=== PATIENT | female | born 1955 | race Caucasian/White ===

== ENCOUNTER → 2020-05-21 14:56 | Outpatient (CLI) | payer OTHER, SELFPAY ==
--- NOTE | ~2020-05-21 | CT_ITS ---
EXAMINATION: CT abdomen pelvis w con DATE: 05/21/2020 15:29 INDICATION: Periumbilical abdominal pain. Abnormal weight loss. TECHNIQUE: Computed tomography (CT) of the abdomen and pelvis was performed with 100 mL Omnipaque 350 intravenous contrast. Automated exposure control and iterative reconstruction technique were employe d. The dose-length product was 229.12 mGy-cm. COMPARISON: CT abdomen 11/17/2019 FINDINGS: The visualized portions of the lung bases demonstrate severe emphysema. There is mild atele ctasis bilaterally. No pleural effusion. The liver demonstrates focal steatosis adjacent to ligamentu m teres. The gallbladder, spleen, pancreas, and adrenal glands are normal. There is cortical thinning of the kidneys. There is a 5 mm cyst in left kidney. There are no dilated loops of bowel. There are no pathologically enlarged lymph nodes. There is no free intraperitoneal fluid. There is a chronic le ft L5 pars defects. There is chronic sclerosis in right L5 pars interarticularis, consistent with str ess reaction. There is thoracolumbar levoscoliosis and mild spondylosis. IMPRESSION: 1. No etiology for the patient's symptoms. 2. Severe emphysema. Reviewed, dictated and finalized at location A.
[2020-05-21 15:17] LABS: Estimated Glomerular Filt Rate 56
== END ==
PROVIDERS: PCP Family Medicine Adolescent Medicine; Visit Provider Family Medicine Adolescent Medicine
DX: R10.33 Periumbilical pain (principal); R63.4 Abnormal weight loss; J43.9 Emphysema, unspecified
CPT/HCPCS: 36415; 74177; Q9967

== ENCOUNTER 2020-07-04 15:10 | Outpatient (CLI) | payer OTHER, SELFPAY ==
--- NOTE | ~2020-07-04 | MM_ITS ---
EXAMINATION: MM screening samson BI w val HISTORY: Baseline screening mammogram TECHNIQUE: Craniocaudal and mediolateral oblique 3-D tomosynthesis images were obtained and synthetic 2-D images were generated. CAD analysis was submitted and interpreted. COMPARISON: None, baseline BREAST PARENCHYMAL COMPOSITION: The breasts are heterogeneously dense, which may obscure small masses . FINDINGS: Scattered benign-appearing calcifications are present. There is no evidence of suspicious m ass, calcification, or architectural distortion to suggest malignancy in either breast. IMPRESSION: 1. No mammographic evidence of malignancy. 2. Recommend routine screening mammography in one year. BI-RADS Category 2: Benign finding(s). Reviewed, dictated and finalized at location A.
== END 2020-07-04 15:11 | disposition home or self-care (01) ==
PROVIDERS: PCP Family Medicine Adolescent Medicine; Visit Provider Family Medicine Adolescent Medicine
DX: Z12.31 Encounter for screening mammogram for malignant neoplasm of breast (principal)
CPT/HCPCS: 77063; 77067

== ENCOUNTER 2021-03-26 13:49 | Inpatient (IN) | payer OTHER, SELFPAY ==
[2021-03-26] VITALS (21 sets, daily range): BP systolic 122–157; BP diastolic 66–96; PULSE 63–105; RESP 14–28; TEMP 36.3–37.2; O2SAT 88–100; BMI 17.3
--- NOTE | ~2021-03-26 | XR_ITS ---
EXAMINATION: XR chest 1V portable DATE: 03/30/2021 08:51 INDICATION: Dyspnea TECHNIQUE: frontal view of the chest was obtained. COMPARISON: Chest radiograph dated 09/13/2018 FINDINGS: Hyperexpansion of lungs with increased lucency, architectural distortion and flattening of the diaphr agm consistent with emphysema. New mild reticular opacities in the right lower lung zone which could represent atelectasis, pneumonia or mild pulmonary edema. No pneumothorax or definitive pleural effus ion. The cardiomediastinal silhouette is normal. Moderate degenerative skeletal changes in the spine and right shoulder. IMPRESSION: 1. Mild reticular opacities in the right lower lung zone which could represent atelectasis, pneumonia or mild pulmonary edema superimposed over emphysema. Reviewed, dictated and finalized at location A.
--- NOTE | ~2021-03-26 | XR_ITS ---
EXAMINATION: XR chest 1V EXAM DATE: 03/26/2021 14:59 INDICATION: Shortness of breath. TECHNIQUE: Portable AP frontal chest x-ray was obtained. Comparison is made to prior examination from 09/13/18. FINDINGS: There is progression in right lung and left upper lobe abnormal reticulation, relative spar ing of the left mid and lower lung zones. Could be pulmonary edema superimposed on known severe emph ysema as seen on prior CT scan. Clinical correlation. Cardiomediastinal silhouette is normal. No con fluent consolidation or pneumothorax. There are bony degenerative changes. Study is limited due to pa tient motion. IMPRESSION: Progression of abnormal reticulation, could indicate acute edema superimposed on chronic severe emphysema but please clinically correlate. Reviewed, dictated and finalized at location A. IMPRESSION: Progression of abnormal reticulation, could indicate acute edema troncoso perimposed on chronic severe emphysema but please clinically correlate.
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
--- NOTE | 2021-03-26 13:54 | ECG_ITS ---
Measurements Intervals [place] Rate: 103 P: 95 MI: 94 QRS: 90 QRSD: 91 T: 72 QT: 328 QTc: 430 Interpretive Statements SINUS TACHYCARDIA WITH SHORT MI INTERVAL POSSIBLE LEFT ATRIAL ENLARGEMENT RIGHT ATRIAL ENLARGEMENT BASELINE ARTIFACT- V1, V3 ABNORMAL ECG Electronically Signed On 03-26-2021 14:11:51 CDT by Nick Appiah D.O.
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
[2021-03-26 14:13] LABS: Glucose Point of Care 113 (65-105)
[2021-03-26] MEDS: SODIUM CHLORIDE 0.9% IV 1,000 ML 999 ML IV CONT ×2 (14:14)
[2021-03-26 14:27] LABS: Add Urine Microscopic? YES; Appearance Urine Cloudy (Clear); Bacteria Urine Trace /hpf; Bilirubin Urine Negative (Negative); Blood Urine Negative (Negative); Color Urine Amber (Yellow); Glucose Urine UA Negative (Negative); Ketones Urine Negative (Negative); Leukocyte Esterase Ur 1+ LEU/UL (Negative); Mucus Urine Rare /lpf; Nitrate Urine Negative (Negative); Protein Urine 2+ mg/dL (Negative); Renal Epithelial Cells Urine Rare /hpf (None Seen); Specific Grav Ur 1.019 (1.001-1.035); Squamous Epithelial Cell Urine Many /hpf (Few); WBC Urine 16-20 /hpf
[2021-03-26 14:29] LABS: Basophils Percent Auto 0.2 % (0.2-1.2); Eosinophils Percent Auto 0.1 % (0-4.4); Hematocrit 48.4 % (37.0-47.0); Hemoglobin 14.9 g/dL (12.0-15.0); Immature Granulocyte Absolute 0.05 K/mm3 (0.00-0.031); Immature Granulocyte Percent A 0.4 % (0-0.5); Lymphocytes Absolute Auto 0.72 K/mm3 (0.9-3.2); Lymphocytes Percent Auto 5.7 % (18.3-44.2); Mean Corpuscular HGB Conc 30.8 g/dl (32-36); Mean Corpuscular Hemoglobin 30.5 pg (26-34); Mean Platelet Volume 9.5 fl (7.4-10.4); Monocytes Percent Auto 8.1 % (2.6-8.5); Neutrophils Absolute Auto 10.7 K/mm3 (1.3-6.7); Neutrophils Percent Auto 85.5 % (45.5-73.1); Platelet Count Result 211 k/mm3 (150-375); Red Blood Count 4.89 M/mm3 (4.2-5.4); Red Cell Distribution Width 13.2 % (11.5-14.5); White Blood Count 12.5 K/mm3 (4.5-10.0)
[2021-03-26 14:31] LABS: INR 0.9; Prothrombin Time 12.5 Seconds (11.1-14.7)
[2021-03-26 14:32] LABS: Partial Thromboplastin Time 28.6 SECONDS (22.3-36.8)
[2021-03-26 14:33] LABS: Alanine Aminotransferase 14 U/L (4-35); Alkaline Phosphatase 64 U/L (38-126); Aspartate Amino Transferase 26 U/L (14-36); Bilirubin,Total 1.1 mg/dL (0.2-1.3); Blood Urea Nitrogen 16 mg/dL (7-17); Calcium 9.9 mg/dL (8.4-10.2); Carbon Dioxide > 40 mmol/L (22-30); Chloride 98 mmol/L (98-107); Estimated CRCL calculation 48 ml/min; Estimated Glomerular Filt Rate > 60; Glucose 120 mg/dL (65-105); Potassium 4.4 mmol/L (3.4-5.0); Sodium 141 mmol/L (137-145)
[2021-03-26 14:33] LABS: Alveolar/Arterial O2 Gradient 60.3 mmHg; Base Excess ABG 0.9 mEq/l (+/-2.0); Carboxyhemoglobin 4.7 % THb (0-2.0); Fractional Inspired Oxygen 32 %; HCO3 ABG 30.5 mEq/l (22.0-26.0); Methemoglobin ABG 0.3 %THb (0-1.5); Oxygen Content ABG 17.7 %vol (16.0-22.0); Oxygen Saturation ABG 93.7 % (95.0-100.0); Oxyhemoglobin 89.2 % THb (90.0-100.0); PO2 FiO2 Ratio Arterial Blood 2.56 %; Reduced Hemoglobin 5.8 %THb (0-5.0); Total Hemoglobin 14.1 g/dL (12.0-18.0)
[2021-03-26 14:35] LABS: Ammonia < 9 umol/L (9-30); Ethanol < 10 mg/dL (<10); Lactic Acid Reflex 1.4 mmol/L (0.7-2.1)
[2021-03-26 14:35] LABS: Device NASAL CANNULA; Modified Allen's Test Unable to perform; PCO2 ABG 73.4 mmHg (35.0-45.0); Site Drawn RIGHT RADIAL; pH ABG 7.236 (7.350-7.450)
[2021-03-26 14:44] LABS: Troponin I < 0.012 ng/mL (0.000-0.034)
[2021-03-26 14:45] LABS: Amphetamine Screen Urine Negative (Negative); Barbiturate Screen Urine Negative (Negative); Benzodiazepines Screen Urine Negative (Negative); Cannabinoid Screen Urine Negative (Negative); Cocaine Screen Urine Negative (Negative); Methadone Screen Urine Negative (Negative); Opiate Screen Urine Positive (Negative); Phencyclidine Screen Urine Negative (Negative)
[2021-03-26] MEDS: ALBUTEROL SULFATE NEB 2.5 MG/0.5 ML INH 5 MG INHALATION (15:07)
--- NOTE | 2021-03-26 15:11 | PC.NURSE ---
Patient's neuro status improving, able to tell RN and EDP her name, date of and that she is at [facility]. Patient's friend at bedside at this time.
[2021-03-26 15:37] LABS: CRP 5.1 mg/dL (<1.0)
[2021-03-26] MEDS: methylPREDNISolone SOD SUCC 125 MG VIAL IV PUSH (16:36)
[2021-03-26 16:39] LABS: Base Excess ABG 3.6 mEq/l (+/-2.0); Carboxyhemoglobin 4.2 % THb (0-2.0); Fractional Inspired Oxygen 35 %; HCO3 ABG 34.1 mEq/l (22.0-26.0); Methemoglobin ABG 0.3 %THb (0-1.5); Oxygen Content ABG 18.2 %vol (16.0-22.0); Oxyhemoglobin 87.3 % THb (90.0-100.0); PO2 ABG 72.8 mmHg (80.0-100.0); PO2 FiO2 Ratio Arterial Blood 2.08 %; Reduced Hemoglobin 8.2 %THb (0-5.0); Total Hemoglobin 14.8 g/dL (12.0-18.0)
[2021-03-26 16:40] LABS: Device NON-INVASIVE VENT; Modified Allen's Test Pass; Non-Invasive Expiratory Pressure 5 CMH2O; Non-Invasive Inspiratory Pressure 13 CMH2O; Non-Invasive Vent Rate 10 /MIN; PCO2 ABG 82.4 mmHg (35.0-45.0); Site Drawn LEFT RADIAL; pH ABG 7.235 (7.350-7.450)
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
--- NOTE | 2021-03-26 19:43 | ADMGEN ---
This patient, Kena Guevara, was admitted to IMU Room 201-01. Patient/family oriented to hospital policies and general routines including ID bracelet, bed and alarms, visiting hours, pain management, procedures, bathroom and other care routines, personal items, smoking policy, room service/diet, and visiting hours. Information on how to activate the Rapid Response Team has been discussed. Patient/Family are encouraged to report perceived risks to care and to ask questions if they do not understand what they are told or what they should do.
[2021-03-26 22:03] LABS: Alveolar/Arterial O2 Gradient 85.9 mmHg; Base Excess ABG 2.4 mEq/l (+/-2.0); Carboxyhemoglobin 3.2 % THb (0-2.0); Fractional Inspired Oxygen 35 %; HCO3 ABG 32.6 mEq/l (22.0-26.0); Methemoglobin ABG 0.3 %THb (0-1.5); Oxygen Content ABG 18.5 %vol (16.0-22.0); Oxygen Saturation ABG 91.1 % (95.0-100.0); Oxyhemoglobin 88.8 % THb (90.0-100.0); PO2 ABG 72.6 mmHg (80.0-100.0); PO2 FiO2 Ratio Arterial Blood 2.07 %; Reduced Hemoglobin 7.7 %THb (0-5.0); Total Hemoglobin 14.8 g/dL (12.0-18.0)
[2021-03-26 22:05] LABS: pH ABG 7.237 (7.350-7.450)
[2021-03-26 22:06] LABS: Device NON-INVASIVE VENT; Modified Allen's Test Pass; Non-Invasive Expiratory Pressure 5 CMH2O; Non-Invasive Inspiratory Pressure 15 CMH2O; Non-Invasive Vent Rate 18 /MIN; PCO2 ABG 78.3 mmHg (35.0-45.0); Site Drawn RIGHT RADIAL
[2021-03-26] MEDS: atenoloL 25 MG TABLET PO (22:28)
[2021-03-27] VITALS (32 sets, daily range): BP systolic 109–139; BP diastolic 65–84; PULSE 75–87; RESP 16–36; TEMP 35.8–36.6; O2SAT 93–98; BMI 17.3
[2021-03-27] MEDS: methylPREDNISolone SOD SUCC 40 MG VIAL IV PUSH ×5 (00:03→23:39)
[2021-03-27] MEDS: LORazepam (*CRX) 1 MG TABLET PO ×2 (00:07→20:39)
[2021-03-27 00:08] LABS: Alveolar/Arterial O2 Gradient 70.3 mmHg; Fractional Inspired Oxygen 35 %; HCO3 ABG 38.8 mEq/l (22.0-26.0); Oxygen Content ABG 19.2 %vol (16.0-22.0); Oxyhemoglobin 91.3 % THb (90.0-100.0); PO2 FiO2 Ratio Arterial Blood 2.23 %; Total Hemoglobin 14.9 g/dL (12.0-18.0)
[2021-03-27 00:09] LABS: pH ABG 7.267 (7.350-7.450)
[2021-03-27 00:10] LABS: Device BIPAP; Expiratory Pressure 6 cmH2O; Inspiratory Pressure 18 cmH2O; Modified Allen's Test Pass; PCO2 ABG 87.1 mmHg (35.0-45.0); Site Drawn RIGHT RADIAL
--- NOTE | 2021-03-27 00:27 | PM.EVENT ---
Event Note Event Note Event Note: The patient still has critical ABGs despite BiPAP changes. She is fully alert and oriented at this time and is no respiratory distress thus there is no current indication for intubation. Given her ongoing issues, I will ask pulmonology to see her in consultation for further recommendations. I will increase her IPAP and rate on the BiPAP and repeat gases in the morning.
[2021-03-27] MEDS: ALBUTEROL SULFATE NEB 2.5 MG/0.5 ML INH 5 MG INHALATION ×2 (01:34→08:00)
[2021-03-27] MEDS: IPRATROPIUM BR 0.02% INH SOLN 0.5 MG/2.5 ML VIAL INHALATION ×4 (01:34→20:00)
[2021-03-27 01:40] LABS: Alveolar/Arterial O2 Gradient 83.4 mmHg; Base Excess ABG 7.5 mEq/l (+/-2.0); Fractional Inspired Oxygen 35 %; HCO3 ABG 37.9 mEq/l (22.0-26.0); Oxygen Content ABG 17.5 %vol (16.0-22.0); Oxygen Saturation ABG 89.1 % (95.0-100.0); Oxyhemoglobin 88.3 % THb (90.0-100.0); PO2 ABG 66.3 mmHg (80.0-100.0); PO2 FiO2 Ratio Arterial Blood 1.89 %; Total Hemoglobin 14.1 g/dL (12.0-18.0)
[2021-03-27 01:42] LABS: Device NON-INVASIVE VENT; Modified Allen's Test Pass; PCO2 ABG 85.9 mmHg (35.0-45.0); Site Drawn RIGHT RADIAL; pH ABG 7.263 (7.350-7.450)
[2021-03-27 01:43] LABS: Non-Invasive Expiratory Pressure 8 CMH2O; Non-Invasive Inspiratory Pressure 20 CMH2O; Non-Invasive Vent Rate 24 /MIN
[2021-03-27 05:34] LABS: Hematocrit 42.3 % (37.0-47.0); Hemoglobin 13.2 g/dL (12.0-15.0); Mean Corpuscular HGB Conc 31.2 g/dl (32-36); Mean Corpuscular Hemoglobin 30.5 pg (26-34); Mean Corpuscular Volume 97.7 fl (80-100); Mean Platelet Volume 9.6 fl (7.4-10.4); Platelet Count Result 183 k/mm3 (150-375); Red Blood Count 4.33 M/mm3 (4.2-5.4); Red Cell Distribution Width 13.1 % (11.5-14.5); White Blood Count 11.1 K/mm3 (4.5-10.0)
[2021-03-27 05:45] LABS: Anion Gap 2 mmol/L (8-16); Blood Urea Nitrogen 24 mg/dL (7-17); Calcium 9.6 mg/dL (8.4-10.2); Carbon Dioxide 35 mmol/L (22-30); Chloride 102 mmol/L (98-107); Estimated CRCL calculation 47 ml/min; Estimated Glomerular Filt Rate > 60; Glucose 146 mg/dL (65-105); Magnesium 1.9 mg/dL (1.6-2.3); Potassium 4.7 mmol/L (3.4-5.0); Sodium 139 mmol/L (137-145)
[2021-03-27 05:54] LABS: Base Excess ABG 3.7 mEq/l (+/-2.0); Fractional Inspired Oxygen 35 %; HCO3 ABG 33.3 mEq/l (22.0-26.0); Oxygen Content ABG 17.9 %vol (16.0-22.0); Oxygen Saturation ABG 90.9 % (95.0-100.0); PO2 ABG 70.3 mmHg (80.0-100.0); PO2 FiO2 Ratio Arterial Blood 2.01 %; Total Hemoglobin 14.1 g/dL (12.0-18.0)
[2021-03-27 05:55] LABS: Device BIPAP; Modified Allen's Test Pass; PCO2 ABG 75.9 mmHg (35.0-45.0); Site Drawn RIGHT RADIAL
[2021-03-27 05:56] LABS: Expiratory Pressure 8 cmH2O; Inspiratory Pressure 20 cmH2O
[2021-03-27 08:49] LABS: NT Pro B Type Natriuretic Pept 1450 pg/mL (5-100)
--- NOTE | 2021-03-27 09:16 | PM.IMPN ---
Progress Note: A&P Assessment and Plan (1) Acute respiratory failure with hypoxia and hypercarbia: Code(s): J96.01 - Acute respiratory failure with hypoxia; J96.02 - Acute respiratory failure with hypercapnia Status: Acute Assessment and Plan: Patient is on BiPAP 28/06 with a rate of 24 -ABG this morning has improved from the prior ABG but is still critical with respiratory acidosis -chest x-ray looks like severe emphysema but also mentions possible edema -BNP is elevated, will give a small dose of Lasix now to see if this improves her respiratory state. Echo ordered -I have spoken with pulmonology who is going to see the patient and will possibly adjust BiPAP settings as well as start antibiotics. She received cefepime, vancomycin and a 1 time dose of doxycycline. She has no fevers at this time. Await pulmonology's recommendations -Continue solumedrol 40mg Q6 for now -Will order sputum cx as the pt has been having a productive cough -okay to take off bipap for sips of water for now (2) COPD with emphysema: Code(s): J43.9 - Emphysema, unspecified Status: Acute Assessment and Plan: As above -pt uses 2-3L of o2 with activity and sleep at home -She takes Stiolto Respimat and PRN albuterol at home -She used to see Dr. Bobby but hasn't followed up in a bit (3) Weight loss: Code(s): R63.4 - Abnormal weight loss Status: Acute Assessment and Plan: Onging since last year -She had a CT of the abd/pelv last year for this with no etiology -likely due to emphysema -follow up with PCP (4) COPD exacerbation: Code(s): J44.1 - Chronic obstructive pulmonary disease with (acute) exacerbation Status: Acute Assessment and Plan: As above -Continue breathing treatments, bipap, and steroids as above (5) Tobacco abuse: Code(s): Z72.0 - Tobacco use Status: Acute Assessment and Plan: Pt understands she needs to quit smoking and has been using Chantix (6) Acute metabolic encephalopathy: Code(s): G93.41 - Metabolic encephalopathy Status: Acute Assessment and Plan: Resolved -likely due to hypoxia with a reported o2 sat of 55% prior to admission -CT of the brain negative for acute pathology -Neuro exam WNL Additional Plan Will do lovenox 40mg for DVT prophylaxis along with 40 mg pantoprazole Time Spent With Patient Time with patient: 25 - 35 minutes Subjective Date/time seen: 03/27/21 09:16 Interval history: Pt is a 65-year-old female here for respiratory failure. Patient was seen today on continuous BiPAP. She has no complaints at this time. She specifically denies chest pain, shortness of breath, nausea, vomiting, fevers, chills or leg swelling. She has no history of heart failure that she knows of. She had a little bit of a cough prior to admission but she says it has resolved. She has been taking her inhalers routinely at home and sees 's office but has not seen them in some time. She usually has 2-3 L of oxygen with activity and at night. She has some chronic epigastric pain without dark stool. She is actually feeling a bit constipated and usually takes MiraLax. She says she usually takes benzodiazepines 3 times a day. Review of Systems Review of Systems: All systems reviewed & are unremarkable except as noted in HPI and below Exam Narrative: Exam Narrative: General: Underweight patient resting in bed in no acute distress on BiPAP HEENT: normocephalic Neck: supple Neuro: Alert and oriented x4. Cranial nerves 2-12 intact. Equal strength the upper lower extremity 5/5. CV:RRR although decreased heart sounds due to emphysema. Telemetry shows a resting heart rate at 83 without arrhythmias. Resp: Significantly decreased breath sounds throughout. No rhonchi. Telemetry shows hypoxia down to ED 3 at night on BiPAP. Current respiratory rate is 24 on BiPAP Abd: Soft, non distended. N
[2021-03-27] MEDS: NICOTINE (*PBKC) 21 MG PATCH 1 PATCH TRANSDERM (10:43)
[2021-03-27] MEDS: VARENICLINE 1 MG TABLET PO ×2 (10:43→18:09)
[2021-03-27] MEDS: atenoloL 25 MG TABLET PO ×2 (10:43→20:39)
[2021-03-27] MEDS: FUROSEMIDE INJ 40 MG/4 ML VIAL 20 MG IV PUSH (10:44)
[2021-03-27] MEDS: PANTOPRAZOLE SODIUM IV 40 MG VIAL IV PUSH (10:44)
[2021-03-27] MEDS: BUDESONIDE RESPULE NEB 0.5 MG/2 ML AMP 1 MG INHALATION ×2 (10:52→20:00)
[2021-03-27] MEDS: ENOXAPARIN 40 MG/0.4 ML SYRINGE SUB-Q (11:35)
--- NOTE | 2021-03-27 12:19 | PCNSR ---
On 03/27/21, the student, Jojo Andrade, provided care and completed [facility] documentation on this patient. I have reviewed the student's documentation and agree with the findings.
--- NOTE | 2021-03-27 12:56 | PM.CNPUL ---
Assessment and Plan Assessment and plan (1) COPD exacerbation: Code(s): J44.1 - Chronic obstructive pulmonary disease with (acute) exacerbation Status: Acute Assessment and Plan: This patient has severe COPD with acute exacerbation and acute on chronic hypercapnic respiratory failure requiring noninvasive ventilation. Her FEV1 was 26% of predicted on her last PFT. Change BiPAP the following settings 24/4 with backup rate of 18 and decreased I time to 0.8 Titrate FiO2 for O2 sats of 88-92% Start ceftriaxone 1 g daily plus azithromycin 500 mg daily for a total of 7 days Continue Solu-Medrol 40 mg IV q.6 hours Change albuterol to 2.5 mg Q 6 hours p.r.n. Start ipratropium 0.5 mg nebulized q.6 hours scheduled Start Pulmicort 1.0 mg nebulized q.6 hours scheduled Regular diet with protein shakes t.i.d.. Nicotine patch 21 mg daily. History of Present Illness History of Present Illness Consult date: 03/27/21 Chief complaint: Hypercarbic respiratory failure Narrative: This is a 65-year-old female with a known history of severe COPD who presents with a few day history of increased cough productive of greenish sputum, increased shortness of breath and chest tightness and wheezing. She denies sore throat fever chills or night sweats. She was admitted yesterday with hypercapnic respiratory failure and COPD exacerbation. She was given 1 dose of broad-spectrum antibiotics and systemic steroids. She was placed on BiPAP 24/8 with some improvement in her CO2 and slower improvement and her PH. She is awake and alert on BiPAP and able to talk in full sentences. She appears very thin in almost cachectic. She has a 40-50 pack-year smoking history and still currently smokes. Chest x-ray showed significant hyperinflation but no signs of interstitial lung disease or pneumonia. Review of Systems Review of Systems: All systems reviewed & are unremarkable except as noted in HPI and below PMFSH Past Medical History Medical History (Updated 03/27/21 @ 09:26 by Faustina Douglass PA-C) COPD with emphysema Depression with anxiety Tobacco abuse Surgical History Surgical History (Updated 03/26/21 @ 20:59 by Mari Blake PA-C) History of orthopedic surgery ORIF right ankle fracture. Right wrist surgery. Right shoulder arthroscopy. Family History Family History Father Diabetes mellitus Sibling Diabetes mellitus Mother Hypertension Social History Social History (Updated 03/26/21 @ 21:01 by Mari Blake PA-C) Social History: The patient lives in her own home in [place] with her cat and dog. She has no children. She has smoked 1 pack of cigarettes per day for the last 50 years or so. 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 She designates her friend Muna Delong as her surrogate decision maker and she wishes to be a full code. Spiritual care concerns: No Meds Home Medications and Allergies Home Medications Medication Instructions Recorded Confirmed Type albuterol sulfate 90 mcg INHALATION QID PRN 03/26/21 03/26/21 History atenolol 25 mg PO BID 03/26/21 03/26/21 History hydrocodone-acetaminophen 1 tablet PO BID PRN 03/26/21 03/26/21 History hyoscyamine sulfate 0.125 mg PO QID PRN 03/26/21 03/26/21 History linaclotide [Linzess] 72 mcg PO DAILY 03/26/21 03/26/21 History lorazepam 1 mg PO TID PRN 03/26/21 03/26/21 History tiotropium-olodaterol [Stiolto 2.5 puff INHALATION BID 03/26/21 03/26/21 History Respimat] varenicline [Chantix Continuing 1 mg PO BID 03/26/21 03/26/21 History Month Box] vilazodone [Viibryd] 40 mg PO DAILY 03/26/21 03/26/21 History Allergies Allergy/AdvReac Type Severity Reaction Status Date / Time moxifloxacin Allergy Mild RASH Verified 09/13/18 21:08 Penicillins Allergy Mild RASH Verified 09/13/18 21:08 Vital Signs Vital Signs - 24 hr
[2021-03-27] MEDS: ALBUTEROL SULFATE NEB 2.5 MG/0.5 ML INH INHALATION (20:01)
--- NOTE | 2021-03-27 21:11 | ECHO_ITS ---
Patient Info Name: Kena Guevara Age: 65 years : 1955 Gender: Female Ht: 66 in Wt: 107 lbs BSA: 1.49 m2 HR: 84 bpm BP: 129 / 75 mmHg Heart Rhythm: Sinus Rhythm Technical Quality: Fair Exam Date: 03/27/2021 9:37 AM Exam Location: [facility] Pulmonary Exam Room: [facility] Patient Status: Inpatient Admit Date: 03/26/2021 Staff Ordering Physician: Mari Blake PA-C Farm Machinery Mechanic: Maria C Hutson RDCS Attending Provider: Lori Scott MD Referring Physician: Lou ARREAGA; Exam Type: CA echo doppler color flow Study Info Indications - SOB EMPHYSEMA Complete two-dimensional, color flow and Doppler transthoracic echocardiogram is performed. Summary 1. Complete two-dimensional, color flow and Doppler transthoracic echocardiogram is performed. 2. Left ventricular chamber dimension is normal. 3. Left ventricular systolic function is normal, estimated at 65-70%. 4. There is no increased left ventricular wall thickness. 5. The left ventricular diastolic function is grade I diastolic dysfunction. 6. There is mild tricuspid valve regurgitation. 7. Moderate pulmonary hypertension, estimated pulmonary arterial systolic pressure is 48 mmHg. Left Ventricle Left ventricular chamber dimension is normal. Left ventricular systolic function is normal, estimated at 65-70%. There is no increased left ventricular wall thickness. The left ventricular diastolic function is grade I diastolic dysfunction. Right Ventricle Right ventricular chamber dimension is normal. Right ventricular systolic function is normal. Left Atria Left atrial chamber dimension is normal. Right Atria Right atrial chamber dimension is normal. Aortic Valve The aortic valve is probable trileaflet. There is no aortic valve stenosis. There is no aortic valve regurgitation. Pulmonic Valve The pulmonic valve is normal. There is trace pulmonic regurgitation. Mitral Valve The mitral valve has normal leaflets. There is trace mitral valve regurgitation. Tricuspid Valve The tricuspid valve leaflets are normal. There is mild tricuspid valve regurgitation. Moderate pulmonary hypertension, estimated pulmonary arterial systolic pressure is 48 mmHg. Pericardium/Pleural The pericardium appears normal. There is trivial pericardial effusion. Inferior Vena Cava Normal inferior vena cava with no collapse upon inspiration consistent with elevated right atrial pressure, 10 mmHg. Aorta The aortic root size at the sinus of Valsalva is normal. Left Ventricular Outflow Tract Name Value Normal LVOT 2D LVOT Diameter 2.0 cm LVOT Doppler LVOT Peak Gradient 4 mmHg LVOT Mean Gradient 2 mmHg LVOT VTI 17 cm LVOT VTI/AV VTI Ratio 0.8 LVOT Stroke Volume 53 ml LVOT CO 12.2 l/min LVOT CI 8.2 l/min/m2 Pulmonic Valve Name
[2021-03-28] VITALS (26 sets, daily range): BP systolic 136–161; BP diastolic 70–82; PULSE 65–103; RESP 18–26; TEMP 36.2–36.6; O2SAT 91–100
[2021-03-28] MEDS: ALBUTEROL SULFATE NEB 2.5 MG/0.5 ML INH INHALATION ×4 (02:04→19:51)
[2021-03-28] MEDS: IPRATROPIUM BR 0.02% INH SOLN 0.5 MG/2.5 ML VIAL INHALATION ×4 (02:05→19:51)
[2021-03-28 05:11] LABS: Hematocrit 40.8 % (37.0-47.0); Hemoglobin 12.7 g/dL (12.0-15.0); Mean Corpuscular HGB Conc 31.1 g/dl (32-36); Mean Corpuscular Hemoglobin 30.4 pg (26-34); Mean Corpuscular Volume 97.6 fl (80-100); Mean Platelet Volume 9.6 fl (7.4-10.4); Platelet Count Result 170 k/mm3 (150-375); Red Blood Count 4.18 M/mm3 (4.2-5.4); Red Cell Distribution Width 13.1 % (11.5-14.5); White Blood Count 11.2 K/mm3 (4.5-10.0)
[2021-03-28 05:37] LABS: Anion Gap 0 mmol/L (8-16); Blood Urea Nitrogen 37 mg/dL (7-17); Calcium 9.3 mg/dL (8.4-10.2); Carbon Dioxide 38 mmol/L (22-30); Chloride 99 mmol/L (98-107); Estimated CRCL calculation 43 ml/min; Estimated Glomerular Filt Rate > 60; Glucose 137 mg/dL (65-105); Potassium 4.6 mmol/L (3.4-5.0); Sodium 137 mmol/L (137-145)
[2021-03-28] MEDS: methylPREDNISolone SOD SUCC 40 MG VIAL IV PUSH ×3 (05:40→17:40)
[2021-03-28] MEDS: BUDESONIDE RESPULE NEB 0.5 MG/2 ML AMP 1 MG INHALATION ×2 (08:10→19:51)
[2021-03-28 09:16] LABS: Alveolar/Arterial O2 Gradient 67.1 mmHg; Base Excess ABG 5.2 mEq/l (+/-2.0); Carboxyhemoglobin 0.2 % THb (0-2.0); Fractional Inspired Oxygen 28 %; HCO3 ABG 31.9 mEq/l (22.0-26.0); Methemoglobin ABG 0.3 %THb (0-1.5); Oxygen Content ABG 18.5 %vol (16.0-22.0); Oxygen Saturation ABG 92.8 % (95.0-100.0); Oxyhemoglobin 91.9 % THb (90.0-100.0); PCO2 ABG 55.1 mmHg (35.0-45.0); PO2 ABG 67.5 mmHg (80.0-100.0); PO2 FiO2 Ratio Arterial Blood 2.41 %; Reduced Hemoglobin 7.6 %THb (0-5.0); Total Hemoglobin 14.3 g/dL (12.0-18.0)
[2021-03-28 09:17] LABS: Modified Allen's Test Pass; Site Drawn LEFT RADIAL
[2021-03-28] MEDS: ENOXAPARIN 40 MG/0.4 ML SYRINGE SUB-Q (09:17)
[2021-03-28] MEDS: atenoloL 25 MG TABLET PO ×2 (09:17→21:29)
[2021-03-28 09:18] LABS: Device NASAL CANNULA
[2021-03-28] MEDS: VARENICLINE 1 MG TABLET PO ×2 (09:18→17:40)
[2021-03-28] MEDS: PANTOPRAZOLE SODIUM IV 40 MG VIAL IV PUSH (09:20)
--- NOTE | 2021-03-28 09:33 | PM.IMPN ---
Progress Note: A&P Assessment and Plan (1) Acute respiratory failure with hypoxia and hypercarbia: Code(s): J96.01 - Acute respiratory failure with hypoxia; J96.02 - Acute respiratory failure with hypercapnia Status: Acute Assessment and Plan: Patient's ABG improved this morning with a normal pH -will remove BiPAP, continue o2, and monitor -Pt currently on 40mg solumedrol Q6 which can probably be decreased but will wait for respiratory's recommendations. -chest x-ray looks like severe emphysema -BNP is elevated, echo showing EF of 65-70% with diastolic grade 1 dysfunction. No additional lasix needed. -sputum cx ordered -Continue ceftriaxone and azithromycin (2) COPD with emphysema: Code(s): J43.9 - Emphysema, unspecified Status: Acute Assessment and Plan: As above -pt uses 2-3L of o2 with activity and sleep at home -She takes Stiolto Respimat and PRN albuterol at home -She used to see Dr. Bobby but hasn't followed up in a bit -Continue pulmcort neb, atrovent schedule and PRN albuterol (3) Weight loss: Code(s): R63.4 - Abnormal weight loss Status: Acute Assessment and Plan: Onging since last year -She had a CT of the abd/pelv last year for this with no etiology -likely due to emphysema -follow up with PCP (4) COPD exacerbation: Code(s): J44.1 - Chronic obstructive pulmonary disease with (acute) exacerbation Status: Acute Assessment and Plan: As above (5) Tobacco abuse: Code(s): Z72.0 - Tobacco use Status: Acute Assessment and Plan: Pt understands she needs to quit smoking and has been using Chantix (6) Acute metabolic encephalopathy: Code(s): G93.41 - Metabolic encephalopathy Status: Acute Assessment and Plan: Resolved -likely due to hypoxia with a reported o2 sat of 55% prior to admission -CT of the brain negative for acute pathology -Neuro exam WNL (7) Bacteria in urine: Code(s): R82.71 - Bacteriuria Status: Acute Assessment and Plan: Likely contaminate due to many squamous cells and urine cx gorwing group b strep -Pt is on ceftriaxone and azithromycin for above which should cover if it was a true infection Additional Plan continue lovenox 40mg for DVT prophylaxis along with 40 mg pantoprazole Time Spent With Patient Time with patient: 25 - 35 minutes Subjective Date/time seen: 03/28/21 09:33 Interval history: Pt is a 65-year-old female here for respiratory failure. Patient was seen today off the BiPAP eating breakfast. She has no complaints of shortness of breath at rest, cough, or chest pain. She says she has not really been walking and has been using the bedside commode. She says at home when she walks to the bathroom she gets very short of breath. She also mentions that she has little more shaky because she usually takes Viibryd and she has not taken it for 3 days. Her friend is going to pick it up from the pharmacy and bring it here. She is eating and drinking well without nausea, vomiting, fevers, chills, diarrhea or constipation. Review of Systems Review of Systems: All systems reviewed & are unremarkable except as noted in HPI and below Exam Narrative: Exam Narrative: General: Underweight patient resting in bed in no acute distress on 2 L O2 HEENT: normocephalic Neck: supple Neuro: Alert and oriented x4. Cranial nerves 2-12 intact. Equal strength the upper lower extremity 5/5. CV:RRR although decreased heart sounds due to emphysema. Telemetry shows a resting heart rate at 98 without arrhythmias. Resp: Significantly decreased breath sounds throughout. No rhonchi. Telemetry shows hypoxia yesterday but no alarms today so far. Abd: Soft, non distended. No pain to palpation. Positive bowel sounds Extremities: No swelling, erythema, or pain to palpation. Objective Data Vital Signs Vital Signs: Vital Signs - 24 h
--- NOTE | 2021-03-28 13:33 | PM.PNPUL ---
Progress Note: A&P Assessment and Plan (1) COPD exacerbation: Code(s): J44.1 - Chronic obstructive pulmonary disease with (acute) exacerbation Status: Acute Assessment and Plan: This patient has severe COPD with acute exacerbation and acute on chronic hypercapnic respiratory failure requiring noninvasive ventilation. Her FEV1 was 26% of predicted on her last PFT. She has been wean off BIPAP Titrate FiO2 for O2 sats of 88-92% Start ceftriaxone 1 g daily plus azithromycin 500 mg daily for a total of 7 days Continue Solu-Medrol 40 mg IV q.6 hours Change albuterol to 2.5 mg Q 6 hours p.r.n. Start ipratropium 0.5 mg nebulized q.6 hours scheduled Start Pulmicort 1.0 mg nebulized q.6 hours scheduled Regular diet with protein shakes t.i.d.. Continue Chantix 1 mg PO bid for 3-6 months Subjective Date/time seen: 03/28/21 13:33 Interval history: Kena's feeling much better today. She did not wear the nicotine patch because she said she was started on Chantix not too long ago and she will continue with that regimen for minimum of 12 weeks. Review of Systems Review of Systems: All systems reviewed & are unremarkable except as noted in HPI and below Exam Const: General: cooperative, healthy appearing and acute distress mild and respiratory Nutritional Appearance: cachectic and thin Orientation/consciousness: oriented to person, oriented to place, oriented to time and patient oriented x3 Limitations: no limitations HENMT: Head: normal to inspection and atraumatic Eyes: General: appearance normal, both eyes and all related structures Neck: Neck: normal visual inspection, trachea midline and supple Resp: Effort & Inspection: normal respiratory effort Cardio: Jugular venous distension: no JVD Rate: regular rate Rhythm: regular rhythm Heart sounds: S1 normal heart sound present and S2 normal heart sound present GI: Inspection: normal to inspection Auscultation: normal bowel sounds Skin: General skin exam: normal color and no rashes or lesions noted Neuro: General: oriented to person, oriented to place, oriented to time and patient oriented x3 Cognition (Neuro): normal cognition Speech: normal speech Extrem: General: normal to inspection and no clubbing, cyanosis or edema Psych: Appearance: grossly normal and well kempt Mental Status: mental status grossly normal Objective Data Vital Signs Vital Signs: Vital Signs - 24 hr 03/27/21 13:40 03/27/21 13:54 03/27/21 14:00 Temperature Pulse Rate 80 80 78 Respiratory Rate 22 H 21 H Blood Pressure Pulse Oximetry 03/27/21 16:00 03/27/21 16:30 03/27/21 18:00 Temperature 36.1 C L Pulse Rate 80 76 84 Respiratory Rate 18 18 Blood Pressure 139/74 Pulse Oximetry 98 94 03/27/21 19:45 03/27/21 20:00 03/27/21 20:01 Temperature 36.6 C Pulse Rate 81 78 77 Respiratory Rate 26 H 24 H Blood Pressure 109/69 Pulse Oximetry 97 93 03/27/21 20:06 03/27/21 20:13 03/27/21 20:39 Temperature Pulse Rate 77 80 78 Respiratory Rate 24 H Blood Pressure Pulse Oximetry 96 03/27/21 21:55 03/27/21 22:23 03/27/21 23:39 Temperature 36.3 C L Pulse Rate 80 81 75 Respiratory Rate 21 H 19 Blood Pressure 122/65 Pulse Oximetry 95 94 03/27/21 23:58 03/28/21 02:00 03/28/21 02:05 Temperature Pulse Rate 75 82 89 Respiratory Rate 19 22 H Blood Pressure Pulse Oximetry 93 03/28/21 02:07 03/28/21 02:14 03/28/21 03:45 Temperature Pulse Rate 89 88 78 Respiratory Rate 18 21 H 26 H Blood Pressure Pulse Oximetry 96 97 03/28/21 03:52 03/28/21 05:50 03/28/21 08:00 Temperature 36.6 C 36.2 C L Pulse Rate 73 73 65 Respiratory Rate 26 H 24 H Blood Pressure 141/75 H 161/82 H Pulse Oximetry 97 94 03/28/21 08:10 03/28/21 08:29 03/28/21 09:17 Temperature Pulse Rate 73 77 102 H Respiratory Rate 24 H 24 H Blood Pressure Pulse Oximetry 91 03/28/21 10:00 03/28/21 12:00 Temperature 36.
--- NOTE | 2021-03-28 13:53 | PCNFU ---
Nutrition Follow-Up Complete: Nutrition Diagnosis:Underweight related to having COPD and a poor appetite as evidenced by a weight loss of over 100 lbs and a BMI of 17.3. Goal:Patient to consume 100% of her meals once diet advances. Patient has met the goal. Pt current nutrition is regular diet with dietary supplements. Nutrition recommendation: Continue with the dietary supplements. Last recorded weight is 49.9 kg. Bowel Motility: Last one reported on 03/27. Labs Reviewed: BUN (37), Glu (137) Meds Noted:Albuterol, Atenolol, Ipratropium [place], Lorazepam, Solu-Medrol, Linaclotide, Tiotropium- Olodaterol, Vilazodone, Zofran, Chantix Additional Notes: Will follow up in 5 days.
--- NOTE | 2021-03-28 14:36 | PCNSR ---
On 03/28/21, the student, Jojo Andrade, provided care and completed [facility] documentation on this patient. I have reviewed the student's documentation and agree with the findings.
--- NOTE | 2021-03-28 15:10 | PHAR ---
Drug Name: Viibryd Ingredients: Vilazodone Hydrochloride -- 40 MG Related Documents: DRUGDEX Evaluations - VILAZODONE Color: Blue Shape: Oval Imprint: 40 Form: Oral Tablet
[2021-03-28] MEDS: LORazepam (*CRX) 1 MG TABLET PO (21:29)
[2021-03-29] VITALS (26 sets, daily range): BP systolic 133–171; BP diastolic 70–96; PULSE 64–104; RESP 16–26; TEMP 36.3–37.1; O2SAT 87–100
[2021-03-29] MEDS: methylPREDNISolone SOD SUCC 40 MG VIAL IV PUSH ×4 (00:11→17:43)
[2021-03-29] MEDS: IPRATROPIUM BR 0.02% INH SOLN 0.5 MG/2.5 ML VIAL INHALATION ×4 (02:06→20:10)
[2021-03-29] MEDS: ALBUTEROL SULFATE NEB 2.5 MG/0.5 ML INH INHALATION (02:06)
[2021-03-29 05:08] LABS: Hematocrit 39.9 % (37.0-47.0); Hemoglobin 12.4 g/dL (12.0-15.0); Mean Corpuscular HGB Conc 31.1 g/dl (32-36); Mean Corpuscular Volume 96.6 fl (80-100); Mean Platelet Volume 9.6 fl (7.4-10.4); Platelet Count Result 195 k/mm3 (150-375); Red Blood Count 4.13 M/mm3 (4.2-5.4); White Blood Count 10.3 K/mm3 (4.5-10.0)
[2021-03-29 05:30] LABS: Potassium 4.6 mmol/L (3.4-5.0)
[2021-03-29 05:51] LABS: Alanine Aminotransferase 14 U/L (4-35); Alkaline Phosphatase 59 U/L (38-126); Aspartate Amino Transferase 20 U/L (14-36); Bilirubin,Total 0.2 mg/dL (0.2-1.3); Blood Urea Nitrogen 39 mg/dL (7-17); Calcium 9.1 mg/dL (8.4-10.2); Carbon Dioxide > 40 mmol/L (22-30); Chloride 101 mmol/L (98-107); Estimated CRCL calculation 57 ml/min; Estimated Glomerular Filt Rate > 60; Glucose 123 mg/dL (65-105); Sodium 140 mmol/L (137-145)
[2021-03-29] MEDS: BUDESONIDE RESPULE NEB 0.5 MG/2 ML AMP 1 MG INHALATION ×2 (07:59→20:10)
[2021-03-29] MEDS: PANTOPRAZOLE SODIUM IV 40 MG VIAL IV PUSH (09:33)
[2021-03-29] MEDS: ENOXAPARIN 40 MG/0.4 ML SYRINGE SUB-Q (09:33)
[2021-03-29] MEDS: VARENICLINE 1 MG TABLET PO ×2 (09:33→17:43)
[2021-03-29] MEDS: atenoloL 25 MG TABLET PO ×2 (09:33→21:23)
[2021-03-29] MEDS: LORazepam (*CRX) 1 MG TABLET PO ×2 (09:41→17:52)
--- NOTE | 2021-03-29 12:56 | PM.IMPN ---
Progress Note: A&P Assessment and Plan (1) COPD exacerbation: Code(s): J44.1 - Chronic obstructive pulmonary disease with (acute) exacerbation Status: Acute Assessment and Plan: This patient has severe COPD with acute exacerbation and acute on chronic hypercapnic respiratory failure requiring noninvasive ventilation of BiPAP. She continues to require BiPAP last night. She does not use CPAP or BIPAP at home and has no machine. Her FEV1 was 26% of predicted on her last PFT. Her NC is at 3 L O2 with sats at 98-100%. She uses 2 L O2 NC at home, but noticed that she has required more with walking and work telephone conversations. -->Needs Home O2 study per patient. Conitnue ceftriaxone 1 g daily plus azithromycin 500 mg daily for a total of 7 days Continue Solu-Medrol 40 mg IV q.6 hours Continue albuterol to 2.5 mg Q 6 hours p.r.n. Continue ipratropium 0.5 mg nebulized q.6 hours scheduled Continue Pulmicort 1.0 mg nebulized q.6 hours scheduled Regular diet with protein shakes t.i.d.. - althought patient did complain that the dairy product makes her cough more after meals. Continue Chantix 1 mg PO bid for 3-6 months for Smoking Cessation. (2) Acute respiratory failure with hypoxia and hypercarbia: Code(s): J96.01 - Acute respiratory failure with hypoxia; J96.02 - Acute respiratory failure with hypercapnia Status: Acute Assessment and Plan: Patient's ABG improved with a normal pH -trying to wean from BiPAP overnight, unsuccessful last night. -continue o2, and monitor -Continue Solu-Medrol 40 mg IV q.6 hours -chest x-ray looks like severe emphysema -BNP is elevated, echo showing EF of 65-70% with diastolic grade 1 dysfunction. No additional lasix needed. No edema to BLE or abdomen and no crackles noted on auscultation. -sputum cx ordered -Continue IV ceftriaxone and azithromycin (3) COPD with emphysema: Code(s): J43.9 - Emphysema, unspecified Status: Acute Assessment and Plan: As above -pt uses 2-3L of o2 with activity and sleep at home -She takes Stiolto Respimat and PRN albuterol at home -She used to see Dr. Bobby but hasn't followed up with a Tile Designer in years. -Needs Home O2 study and orders to get O2 supply. -Continue pulmcort neb, atrovent schedule and PRN albuterol (4) Weight loss: Code(s): R63.4 - Abnormal weight loss Status: Acute Assessment and Plan: Onging since last year -She had a CT of the abd/pelv last year for this with no etiology -likely due to emphysema and significant calorie consumption with that disease -follow up with PCP (5) Tobacco abuse: Code(s): Z72.0 - Tobacco use Status: Acute Assessment and Plan: Pt understands she needs to quit smoking and has been using Chantix (6) Acute metabolic encephalopathy: Code(s): G93.41 - Metabolic encephalopathy Status: Acute Assessment and Plan: Resolved -likely due to hypoxia with a reported o2 sat of 55% prior to admission -CT of the brain negative for acute pathology -Neuro exam WNL -Needs Home oxygen supply ordered and provided. (7) Bacteria in urine: Code(s): R82.71 - Bacteriuria Status: Acute Assessment and Plan: - Urine cx grew group B strep -Pt is on IV ceftriaxone and azithromycin 7 days for coverage. - complete full antibiotic course -patient stated that she had been holding her urine all night, advised patient to get a bedside commode for her home bedroom, to avoid this complication - encouraged more oral hydration in the morning and afternoon, so she would not have to worry as much about urinating overnight - get ALEJANDRA study completed. Additional Plan continue lovenox 40mg for DVT prophylaxis along with 40 mg pantoprazole for GI/ stress ulcer /prophylaxis Subjective Date/time seen: 03/29/21 12:56 Interval history: Kena's feeling slightly better today. She is still having a very thick coarse productive cough.
[2021-03-29] MEDS: PSYLLIUM POWDER PACKET 1 PACKET PO (13:34)
--- NOTE | 2021-03-29 14:24 | HOMEO2EVAL ---
Evaluation was performed at [facility] Home Oxygen Evaluation RC: Home Oxygen (O2) Evaluation Start: 03/26/21 21:11 Freq: ONCE Status: Active Protocol: RPE Activity Type Activity Date Activity User E-Sign Co-Sign Detail Recorded Client Recorded Date Recorded By Document 03/29/21 09:30 DENNIS [email or web address] 03/29/21 14:24 DENNIS Document 03/29/21 09:33 DENNIS [email or web address] 03/29/21 14:24 DENNIS Document 03/29/21 09:36 DENNIS [email or web address] 03/29/21 14:24 DENNIS Document 03/29/21 09:37 DENNIS [email or web address] 03/29/21 14:24 DENNIS Document 03/29/21 09:38 DENNIS [email or web address] 03/29/21 14:24 DENNIS Document 03/29/21 09:45 DENNIS [email or web address] 03/29/21 14:24 DENNIS 03/29/21 03/29/21 03/29/21 09:30 09:33 09:36 Home O2 Evaluation Test Phase Resting Resting Exercise Oxygen Delivery Room Air Nasal Cannula Nasal Cannula Oxygen Flow Rate (L/min) 1 1 Pulse Oximetry (90-100 %) 87 L 92 87 L Pulse Rate (60-100 beats/min) 96 Home Oxygen Evaluation Comments Treatment Charges O2 Evaluation - Inpatient 03/29/21 03/29/21 03/29/21 09:37 09:38 09:45 Home O2 Evaluation Test Phase Exercise Exercise Resting Oxygen Delivery Nasal Cannula Nasal Cannula Nasal Cannula Oxygen Flow Rate (L/min) 2 3 1 Pulse Oximetry (90-100 %) 87 L 90 93 Pulse Rate (60-100 beats/min) 101 H 92 Home Oxygen Evaluation Comments PT REQUIRES 1 L AT REST AND 3 L WITH EXERTION Treatment Charges
--- NOTE | 2021-03-29 14:54 | PC.NURSE ---
This patient, Kena Guevara, was transferred to [facility] on 03/29/21 at 1445. Personal belongings sent with patient. Report given to VIVEK Conrad. Appropriate documentation sent with patient.
--- NOTE | 2021-03-29 14:58 | PCRCNOTE ---
PT IS SET UP WITH [facility] FOR HOME O2. PHONE # IS [phone]. ALL PAPERWORK IS FAXED. NEED TO CALL UPON DISCHARGE TO LET THEM KNOW SHE IS GOING HOME TO ARRANGE TIME FOR SET UP
--- NOTE | 2021-03-29 15:12 | PC.NURSE ---
This patient, Kena Guevara, was received from IMU on 03/29/21 at 1450 Reprot received from Karen DOYLE. Patient/family oriented to unit policies and routines
[2021-03-30] VITALS (20 sets, daily range): BP systolic 151–184; BP diastolic 81–93; PULSE 73–89; RESP 17–20; TEMP 36.2–36.7; O2SAT 93–99
[2021-03-30] MEDS: IPRATROPIUM BR 0.02% INH SOLN 0.5 MG/2.5 ML VIAL INHALATION ×4 (01:12→19:42)
[2021-03-30] MEDS: methylPREDNISolone SOD SUCC 40 MG VIAL IV PUSH ×4 (01:17→19:19)
[2021-03-30 06:01] LABS: Hematocrit 44.6 % (37.0-47.0); Hemoglobin 13.6 g/dL (12.0-15.0); Mean Corpuscular HGB Conc 30.5 g/dl (32-36); Mean Corpuscular Hemoglobin 30.5 pg (26-34); Mean Platelet Volume 9.4 fl (7.4-10.4); Platelet Count Result 214 k/mm3 (150-375); Red Blood Count 4.46 M/mm3 (4.2-5.4); Red Cell Distribution Width 13.1 % (11.5-14.5); White Blood Count 8.4 K/mm3 (4.5-10.0)
[2021-03-30 06:21] LABS: Blood Urea Nitrogen 34 mg/dL (7-17); Calcium 9.3 mg/dL (8.4-10.2); Carbon Dioxide > 40 mmol/L (22-30); Chloride 101 mmol/L (98-107); Estimated CRCL calculation 50 ml/min; Estimated Glomerular Filt Rate > 60; Glucose 130 mg/dL (65-105); Potassium 4.8 mmol/L (3.4-5.0); Sodium 140 mmol/L (137-145)
[2021-03-30 06:22] LABS: NT Pro B Type Natriuretic Pept 996 pg/mL (5-100)
[2021-03-30] MEDS: ALBUTEROL SULFATE NEB 2.5 MG/0.5 ML INH INHALATION ×2 (08:31→15:09)
[2021-03-30] MEDS: BUDESONIDE RESPULE NEB 0.5 MG/2 ML AMP 1 MG INHALATION ×2 (08:33→19:42)
[2021-03-30] MEDS: VARENICLINE 1 MG TABLET PO ×2 (08:53→19:19)
[2021-03-30] MEDS: atenoloL 25 MG TABLET PO ×2 (08:53→20:20)
[2021-03-30] MEDS: ENOXAPARIN 40 MG/0.4 ML SYRINGE SUB-Q (08:54)
[2021-03-30] MEDS: PSYLLIUM POWDER PACKET 1 PACKET PO (08:54)
[2021-03-30] MEDS: PANTOPRAZOLE SODIUM IV 40 MG VIAL IV PUSH (08:55)
--- NOTE | 2021-03-30 11:51 | PM.PNPUL ---
Progress Note: A&P Assessment and Plan (1) COPD exacerbation: Code(s): J44.1 - Chronic obstructive pulmonary disease with (acute) exacerbation Status: Acute Assessment and Plan: This patient has severe COPD with acute exacerbation and acute on chronic hypercapnic respiratory failure requiring noninvasive ventilation. Her FEV1 was 26% of predicted on her last PFT. D/C BIPAP and do overnight pulse oximetry study on 2 liters. Unclear as to whether she will need home BIPAP or not at this point. Need for such devices survey compiler is best determined once COPD exacerbation has resolved. Titrate FiO2 for O2 sats of 88-92% Start ceftriaxone 1 g daily plus azithromycin 500 mg daily for a total of 7 days Continue Solu-Medrol 40 mg IV q.6 hours Change albuterol to 2.5 mg Q 6 hours p.r.n. Start ipratropium 0.5 mg nebulized q.6 hours scheduled Start Pulmicort 1.0 mg nebulized q.6 hours scheduled Regular diet with protein shakes t.i.d.. Continue Chantix 1 mg PO bid for 3-6 months Can likely be discharged home home in 48-72 hours She's agreed to outpatient pulmonary rehab enrollement Subjective Date/time seen: 03/30/21 11:51 Interval history: Kena's feeling better. She did some physical therapy walking around in her room today and felt short winded doing that. Her ABG has normalized with a pCO2 of about 55. Review of Systems Review of Systems: All systems reviewed & are unremarkable except as noted in HPI and below Exam Const: General: cooperative, healthy appearing and acute distress mild and respiratory Nutritional Appearance: cachectic and thin Orientation/consciousness: oriented to person, oriented to place, oriented to time and patient oriented x3 Limitations: no limitations HENMT: Head: normal to inspection and atraumatic Eyes: General: appearance normal, both eyes and all related structures Neck: Neck: normal visual inspection, trachea midline and supple Resp: Effort & Inspection: normal respiratory effort Cardio: Jugular venous distension: no JVD Rate: regular rate Rhythm: regular rhythm Heart sounds: S1 normal heart sound present and S2 normal heart sound present GI: Inspection: normal to inspection Auscultation: normal bowel sounds Skin: General skin exam: normal color and no rashes or lesions noted Neuro: General: oriented to person, oriented to place, oriented to time and patient oriented x3 Cognition (Neuro): normal cognition Speech: normal speech Extrem: General: normal to inspection and no clubbing, cyanosis or edema Psych: Appearance: grossly normal and well kempt Mental Status: mental status grossly normal Objective Data Vital Signs Vital Signs: Vital Signs - 24 hr 03/29/21 12:00 03/29/21 13:56 03/29/21 14:00 Temperature 36.7 C Pulse Rate 99 88 64 Respiratory Rate 20 16 Blood Pressure 133/70 Pulse Oximetry 94 03/29/21 14:02 03/29/21 16:00 03/29/21 20:00 Temperature 37.1 C Pulse Rate 90 85 84 Respiratory Rate 18 16 Blood Pressure 152/87 H Pulse Oximetry 96 03/29/21 20:12 03/29/21 20:38 03/29/21 21:23 Temperature 36.9 C Pulse Rate 83 81 81 Respiratory Rate 18 16 Blood Pressure 159/92 H Pulse Oximetry 93 99 03/29/21 21:28 03/29/21 22:30 03/30/21 00:00 Temperature Pulse Rate 84 80 77 Respiratory Rate 18 22 H Blood Pressure Pulse Oximetry 93 03/30/21 01:10 03/30/21 01:13 03/30/21 01:23 Temperature Pulse Rate 74 74 76 Respiratory Rate 17 18 18 Blood Pressure Pulse Oximetry 93 03/30/21 04:00 03/30/21 05:36 03/30/21 08:00 Temperature 36.7 C Pulse Rate 73 76 75 Respiratory Rate 20 Blood Pressure 184/93 H Pulse Oximetry 98 03/30/21 08:30 03/30/21 08:40 03/30/21 08:53 Temperature Pulse Rate 84 85 75 Respiratory Rate 18 18 Blood Pressure Pulse Oximetry 97 Intake/Output Intake/Output: Intake & Output 03/27/21 03/28/21 03/29/21 03/30/21 23:59 23:59 23:59 23:59 Intake Total 820 19
--- NOTE | 2021-03-30 12:26 | P.PNIM_ITS ---
Progress Note: A&P Assessment and Plan (1) COPD exacerbation: Code(s): J44.1 - Chronic obstructive pulmonary disease with (acute) exacerbation Status: Acute Assessment and Plan: * Severe COPD with acute exacerbation and acute on chronic hypercapnic respiratory failure requiring noninvasive ventilation of BiPAP. * She continues to require BiPAP last night. She does not use CPAP or BIPAP at home and has no machine * Her FEV1 was 26% of predicted on her last PFT. * Her NC is at 3 L O2 with sats at 98-100%. She uses 2 L O2 NC at home 3L with activity * Ceftriaxone 1 g daily and azithromycin 500 mg daily for a total of 7 days * Solu-Medrol 40 mg IV q.6 hours * Albuterol neb, ipratropium neb, Pulmicort 1.0 mg neb Q6hr * Regular diet with protein shakes t.i.d.. * Continue Chantix 1 mg PO bid for 3-6 months for Smoking Cessation. * Pulmonology consult thank you for recommendations * Education about smoking cessation * PT/OT * Patient to chair (2) Acute respiratory failure with hypoxia and hypercarbia: Code(s): J96.01 - Acute respiratory failure with hypoxia; J96.02 - Acute respiratory failure with hypercapnia Status: Acute Assessment and Plan: * ABG showed pH 7.380, pCO@ 55.1, pO2 67.5, HCO3 31.9 * trying to wean from BiPAP overnight, unsuccessful last night. * Supplemental oxygen to maintain saturations above 88% * Solu-Medrol 40 mg IV q.6 hours * chest x-ray: Mild reticular opacities in the right lower lung zone which could represent atelectasis, pneumonia or mild pulmonary edema superimposed over emphysema. * BNP is 996 * Will try 20mg IV lasix once * Echo showing EF of 65-70% with diastolic grade 1 dysfunction * Sputum culture shows no growth to date * Continue IV ceftriaxone and azithromycin (3) COPD with emphysema: Code(s): J43.9 - Emphysema, unspecified Status: Acute Assessment and Plan: * As above * pt uses 2-3L of o2 with activity and sleep at home * PFT (10/25/18) shows a FEV1 25% and severe hyperinflation * She takes Stiolto Respimat and PRN albuterol at home * She used to see Dr. Bobby but hasn't followed up with a Departure Clerk in years. * guest services ambassador consult for home O2 concern * Continue pulmcort neb, atrovent schedule and PRN albuterol (4) Weight loss: Code(s): R63.4 - Abnormal weight loss Status: Acute Assessment and Plan: * Onging since last year * CT of the abd/pelv last year for this with no etiology * likely due to emphysema and significant calorie consumption with that disease * Community Development Planner consult for severe malnutrition * Supplements TID (5) Tobacco abuse: Code(s): Z72.0 - Tobacco use Status: Acute Assessment and Plan: * Pt understands she needs to quit smoking and has been using Chantix * Education about smoking cessation was performed again. * Patient stated that she has been on Chantix for the last two weeks * Will need discharge education again. (6) Acute metabolic encephalopathy: Code(s): G93.41 - Metabolic encephalopathy Status: Acute Assessment and Plan: * Resolved * likely due to hypoxia with a reported o2 sat of 55% prior to admission * CT of the brain negative for acute pathology * Neuro exam WNL (7) Bacteria in urine: Code(s): R82.71 - Bacteriuria Status: Acute Assessment and Plan: * Urine cx grew group B strep
--- NOTE | 2021-03-30 12:26 | PM.IMPN ---
Progress Note: A&P Assessment and Plan (1) COPD exacerbation: Code(s): J44.1 - Chronic obstructive pulmonary disease with (acute) exacerbation Status: Acute Assessment and Plan: Severe COPD with acute exacerbation and acute on chronic hypercapnic respiratory failure requiring noninvasive ventilation of BiPAP. She continues to require BiPAP last night. She does not use CPAP or BIPAP at home and has no machine Her FEV1 was 26% of predicted on her last PFT. Her NC is at 3 L O2 with sats at 98-100%. She uses 2 L O2 NC at home 3L with activity Ceftriaxone 1 g daily and azithromycin 500 mg daily for a total of 7 days Solu-Medrol 40 mg IV q.6 hours Albuterol neb, ipratropium neb, Pulmicort 1.0 mg neb Q6hr Regular diet with protein shakes t.i.d.. Continue Chantix 1 mg PO bid for 3-6 months for Smoking Cessation. Pulmonology consult thank you for recommendations Education about smoking cessation PT/OT Patient to chair (2) Acute respiratory failure with hypoxia and hypercarbia: Code(s): J96.01 - Acute respiratory failure with hypoxia; J96.02 - Acute respiratory failure with hypercapnia Status: Acute Assessment and Plan: ABG showed pH 7.380, pCO@ 55.1, pO2 67.5, HCO3 31.9 trying to wean from BiPAP overnight, unsuccessful last night. Supplemental oxygen to maintain saturations above 88% Solu-Medrol 40 mg IV q.6 hours chest x-ray: Mild reticular opacities in the right lower lung zone which could represent atelectasis, pneumonia or mild pulmonary edema superimposed over emphysema. BNP is 996 Will try 20mg IV lasix once Echo showing EF of 65-70% with diastolic grade 1 dysfunction Sputum culture shows no growth to date Continue IV ceftriaxone and azithromycin (3) COPD with emphysema: Code(s): J43.9 - Emphysema, unspecified Status: Acute Assessment and Plan: As above pt uses 2-3L of o2 with activity and sleep at home PFT (10/25/18) shows a FEV1 25% and severe hyperinflation She takes Stiolto Respimat and PRN albuterol at home She used to see Dr. Bobby but hasn't followed up with a Cafeteria Attendant in years. web services manager consult for home O2 concern Continue pulmcort neb, atrovent schedule and PRN albuterol (4) Weight loss: Code(s): R63.4 - Abnormal weight loss Status: Acute Assessment and Plan: Onging since last year CT of the abd/pelv last year for this with no etiology likely due to emphysema and significant calorie consumption with that disease District Traffic Chief consult for severe malnutrition Supplements TID (5) Tobacco abuse: Code(s): Z72.0 - Tobacco use Status: Acute Assessment and Plan: Pt understands she needs to quit smoking and has been using Chantix Education about smoking cessation was performed again. Patient stated that she has been on Chantix for the last two weeks Will need discharge education again. (6) Acute metabolic encephalopathy: Code(s): G93.41 - Metabolic encephalopathy Status: Acute Assessment and Plan: Resolved likely due to hypoxia with a reported o2 sat of 55% prior to admission CT of the brain negative for acute pathology Neuro exam WNL (7) Bacteria in urine: Code(s): R82.71 - Bacteriuria Status: Acute Assessment and Plan: Urine cx grew group B strep Pt is on IV ceftriaxone and azithromycin 7 days for coverage. complete full antibiotic course Follow up with pulmonology for ALEJANDRA study Additional Plan continue lovenox 40mg for DVT prophylaxis along with 40 mg pantoprazole for GI/ stress ulcer /prophylaxis Subjective Date/time seen: 03/30/21 12:26 Ms. Cunha is a 65-year-old female with a past medical history COPD depression anxiety and tobacco use who presented to the ED on 03/26/2021 with complaints of altered mental status. Patient states that she was at wo
[2021-03-30] MEDS: LORazepam (*CRX) 1 MG TABLET PO ×2 (13:45→20:20)
[2021-03-30] MEDS: FUROSEMIDE INJ 40 MG/4 ML VIAL 20 MG IV PUSH (14:32)
[2021-03-31] VITALS (18 sets, daily range): BP systolic 152–179; BP diastolic 77–88; PULSE 77–90; RESP 18–20; TEMP 36.2–36.6; O2SAT 93–99
[2021-03-31] MEDS: methylPREDNISolone SOD SUCC 40 MG VIAL IV PUSH ×5 (00:03→23:50)
[2021-03-31 06:26] LABS: Hematocrit 47.1 % (37.0-47.0); Hemoglobin 14.4 g/dL (12.0-15.0); Mean Corpuscular HGB Conc 30.6 g/dl (32-36); Mean Corpuscular Hemoglobin 30.4 pg (26-34); Mean Corpuscular Volume 99.6 fl (80-100); Mean Platelet Volume 8.9 fl (7.4-10.4); Platelet Count Result 233 k/mm3 (150-375); Red Blood Count 4.73 M/mm3 (4.2-5.4); Red Cell Distribution Width 12.9 % (11.5-14.5); White Blood Count 8.3 K/mm3 (4.5-10.0)
[2021-03-31] MEDS: LORazepam (*CRX) 1 MG TABLET PO ×3 (06:30→21:05)
[2021-03-31 06:47] LABS: Blood Urea Nitrogen 37 mg/dL (7-17); Calcium 9.2 mg/dL (8.4-10.2); Carbon Dioxide > 40 mmol/L (22-30); Chloride 96 mmol/L (98-107); Estimated CRCL calculation 53 ml/min; Estimated Glomerular Filt Rate > 60; Glucose 143 mg/dL (65-105); Magnesium 1.9 mg/dL (1.6-2.3); Potassium 4.9 mmol/L (3.4-5.0); Sodium 137 mmol/L (137-145)
[2021-03-31] MEDS: BUDESONIDE RESPULE NEB 0.5 MG/2 ML AMP 1 MG INHALATION ×2 (07:58→20:49)
[2021-03-31] MEDS: IPRATROPIUM BR 0.02% INH SOLN 0.5 MG/2.5 ML VIAL INHALATION ×3 (07:58→20:49)
[2021-03-31] MEDS: PSYLLIUM POWDER PACKET 1 PACKET PO (08:22)
[2021-03-31] MEDS: ENOXAPARIN 40 MG/0.4 ML SYRINGE SUB-Q (08:22)
[2021-03-31] MEDS: VARENICLINE 1 MG TABLET PO ×2 (08:23→17:47)
[2021-03-31] MEDS: atenoloL 25 MG TABLET PO ×2 (08:23→20:11)
[2021-03-31] MEDS: PANTOPRAZOLE SODIUM IV 40 MG VIAL IV PUSH (08:24)
--- NOTE | 2021-03-31 10:15 | P.PNIM_ITS ---
Progress Note: A&P Assessment and Plan (1) COPD exacerbation: Code(s): J44.1 - Chronic obstructive pulmonary disease with (acute) exacerbation Status: Acute Assessment and Plan: * Severe COPD with acute exacerbation and acute on chronic hypercapnic respiratory failure requiring noninvasive ventilation of BiPAP. * Bipap DC'd last night patient was on 2LNC and was able to remain stable. * Her FEV1 was 26% of predicted on her last PFT. * Her NC is at 3 L O2 with sats at 98-100%. She uses 2 L O2 NC at home 3L with activity * Will need home O2 evaluation * Ceftriaxone 1 g daily and azithromycin 500 mg daily for a total of 7 days * Solu-Medrol 40 mg IV q.6 hours * Albuterol neb Q6hr PRN * ipratropium neb, Pulmicort 1.0 mg neb Q6hr * Regular diet with protein shakes t.i.d.. * Continue Chantix 1 mg PO bid for 3-6 months for Smoking Cessation. * Pulmonology consult thank you for recommendations * Education about smoking cessation * PT/OT * Patient to chair (2) Acute respiratory failure with hypoxia and hypercarbia: Code(s): J96.01 - Acute respiratory failure with hypoxia; J96.02 - Acute respiratory failure with hypercapnia Status: Acute Assessment and Plan: * ABG showed pH 7.380, pCO@ 55.1, pO2 67.5, HCO3 31.9 * trying to wean from BiPAP overnight, Successful last evening * Supplemental oxygen to maintain saturations above 88% * Solu-Medrol 40 mg IV q.6 hours * chest x-ray: Mild reticular opacities in the right lower lung zone which could represent atelectasis, pneumonia or mild pulmonary edema superimposed over emphysema. * BNP is 996 * Echo showing EF of 65-70% with diastolic grade 1 dysfunction * Sputum culture came back with yeast * Continue IV ceftriaxone and azithromycin (3) COPD with emphysema: Code(s): J43.9 - Emphysema, unspecified Status: Acute Assessment and Plan: * As above * pt uses 2-3L of o2 with activity and sleep at home * PFT (10/25/18) shows a FEV1 25% and severe hyperinflation * She takes Stiolto Respimat and PRN albuterol at home * She used to see Dr. Bobby but hasn't followed up with a Consumer Credit Counselor in years. * financial services education consultant consult for home O2 concern * Continue pulmcort neb, atrovent schedule and PRN albuterol * Will need to follow up with pulmonology after discharge (4) Weight loss: Code(s): R63.4 - Abnormal weight loss Status: Acute Assessment and Plan: * Onging since last year * CT of the abd/pelv last year for this with no etiology * likely due to emphysema and significant calorie consumption with that disease * Barrel Charrer consult for severe malnutrition * Supplements TID (5) Tobacco abuse: Code(s): Z72.0 - Tobacco use Status: Acute Assessment and Plan: * Pt understands she needs to quit smoking and has been using Chantix * Education about smoking cessation was performed again. * Patient stated that she has been on Chantix for the last two weeks * Will need discharge education again. (6) Acute metabolic encephalopathy: Code(s): G93.41 - Metabolic encephalopathy Status: Acute Assessment and Plan: * Resolved * likely due to hypoxia with a reported o2 sat of 55% prior to admission * CT of the brain negative for acute pathology * Neuro exam WNL (7) Bacteria in urine: Code(s): R82.71 - Bacteriuria Status: Acute Assessment and P
--- NOTE | 2021-03-31 10:15 | PM.IMPN ---
Progress Note: A&P Assessment and Plan (1) COPD exacerbation: Code(s): J44.1 - Chronic obstructive pulmonary disease with (acute) exacerbation Status: Acute Assessment and Plan: Severe COPD with acute exacerbation and acute on chronic hypercapnic respiratory failure requiring noninvasive ventilation of BiPAP. Bipap DC'd last night patient was on 2LNC and was able to remain stable. Her FEV1 was 26% of predicted on her last PFT. Her NC is at 3 L O2 with sats at 98-100%. She uses 2 L O2 NC at home 3L with activity Will need home O2 evaluation Ceftriaxone 1 g daily and azithromycin 500 mg daily for a total of 7 days Solu-Medrol 40 mg IV q.6 hours Albuterol neb Q6hr PRN ipratropium neb, Pulmicort 1.0 mg neb Q6hr Regular diet with protein shakes t.i.d.. Continue Chantix 1 mg PO bid for 3-6 months for Smoking Cessation. Pulmonology consult thank you for recommendations Education about smoking cessation PT/OT Patient to chair (2) Acute respiratory failure with hypoxia and hypercarbia: Code(s): J96.01 - Acute respiratory failure with hypoxia; J96.02 - Acute respiratory failure with hypercapnia Status: Acute Assessment and Plan: ABG showed pH 7.380, pCO@ 55.1, pO2 67.5, HCO3 31.9 trying to wean from BiPAP overnight, Successful last evening Supplemental oxygen to maintain saturations above 88% Solu-Medrol 40 mg IV q.6 hours chest x-ray: Mild reticular opacities in the right lower lung zone which could represent atelectasis, pneumonia or mild pulmonary edema superimposed over emphysema. BNP is 996 Echo showing EF of 65-70% with diastolic grade 1 dysfunction Sputum culture came back with yeast Continue IV ceftriaxone and azithromycin (3) COPD with emphysema: Code(s): J43.9 - Emphysema, unspecified Status: Acute Assessment and Plan: As above pt uses 2-3L of o2 with activity and sleep at home PFT (10/25/18) shows a FEV1 25% and severe hyperinflation She takes Stiolto Respimat and PRN albuterol at home She used to see Dr. Bobby but hasn't followed up with a Wafer Fabricator in years. clinical services professional consult for home O2 concern Continue pulmcort neb, atrovent schedule and PRN albuterol Will need to follow up with pulmonology after discharge (4) Weight loss: Code(s): R63.4 - Abnormal weight loss Status: Acute Assessment and Plan: Onging since last year CT of the abd/pelv last year for this with no etiology likely due to emphysema and significant calorie consumption with that disease Research Associate Quality Control Qc consult for severe malnutrition Supplements TID (5) Tobacco abuse: Code(s): Z72.0 - Tobacco use Status: Acute Assessment and Plan: Pt understands she needs to quit smoking and has been using Chantix Education about smoking cessation was performed again. Patient stated that she has been on Chantix for the last two weeks Will need discharge education again. (6) Acute metabolic encephalopathy: Code(s): G93.41 - Metabolic encephalopathy Status: Acute Assessment and Plan: Resolved likely due to hypoxia with a reported o2 sat of 55% prior to admission CT of the brain negative for acute pathology Neuro exam WNL (7) Bacteria in urine: Code(s): R82.71 - Bacteriuria Status: Acute Assessment and Plan: Urine cx grew group B strep Pt is on IV ceftriaxone and azithromycin 7 days for coverage. complete full antibiotic course Subjective Date/time seen: 03/31/21 0900 Ms. Cunha is a 65-year-old female with a past medical history COPD depression anxiety and tobacco use who presented to the ED on 03/26/2021 with complaints of altered mental status. Patient states that she was at work and her coworkers said that she was blue and stupid. Patient was placed on continuous pulse ox monitoring overnight with 2
--- NOTE | 2021-03-31 12:34 | PM.PNPUL ---
Progress Note: A&P Assessment and Plan (1) COPD exacerbation: Code(s): J44.1 - Chronic obstructive pulmonary disease with (acute) exacerbation Status: Acute Assessment and Plan: This patient has severe COPD with acute exacerbation and acute on chronic hypercapnic respiratory failure requiring noninvasive ventilation. Her FEV1 was 26% of predicted on her last PFT. D/C BIPAP and do overnight pulse oximetry study on 2 liters. Unclear as to whether she will need home BIPAP or not at this point. Need for such devices long term care phlebotomist is best determined once COPD exacerbation has resolved. Still awaiting results of overnight pulse oximetry Titrate FiO2 for O2 sats of 88-92% Start ceftriaxone 1 g daily plus azithromycin 500 mg daily for a total of 7 days Continue Solu-Medrol 40 mg IV q.6 hours Change albuterol to 2.5 mg Q 6 hours p.r.n. Start ipratropium 0.5 mg nebulized q.6 hours scheduled Start Pulmicort 1.0 mg nebulized q.6 hours scheduled Regular diet with protein shakes t.i.d.. Continue Chantix 1 mg PO bid for 3-6 months Can likely be discharged home home in 48-72 hours She's agreed to outpatient pulmonary rehab enrollement Subjective Date/time seen: 03/31/21 12:34 Interval history: continues to feel better and continues to do minor activity inside the room. I do not see the overnight pulse oximetry study on 2 L in her chart. Review of Systems Review of Systems: All systems reviewed & are unremarkable except as noted in HPI and below Exam Const: General: cooperative, healthy appearing and acute distress mild and respiratory Nutritional Appearance: cachectic and thin Orientation/consciousness: oriented to person, oriented to place, oriented to time and patient oriented x3 Limitations: no limitations HENMT: Head: normal to inspection and atraumatic Eyes: General: appearance normal, both eyes and all related structures Neck: Neck: normal visual inspection, trachea midline and supple Resp: Effort & Inspection: normal respiratory effort Cardio: Jugular venous distension: no JVD Rate: regular rate Rhythm: regular rhythm Heart sounds: S1 normal heart sound present and S2 normal heart sound present GI: Inspection: normal to inspection Auscultation: normal bowel sounds Skin: General skin exam: normal color and no rashes or lesions noted Neuro: General: oriented to person, oriented to place, oriented to time and patient oriented x3 Cognition (Neuro): normal cognition Speech: normal speech Extrem: General: normal to inspection and no clubbing, cyanosis or edema Psych: Appearance: grossly normal and well kempt Mental Status: mental status grossly normal Objective Data Vital Signs Vital Signs: Vital Signs - 24 hr 03/30/21 14:00 03/30/21 15:00 03/30/21 15:10 Temperature 36.2 C L Pulse Rate 79 82 85 Respiratory Rate 20 18 18 Blood Pressure 162/84 H Pulse Oximetry 97 03/30/21 19:44 03/30/21 19:58 03/30/21 20:00 Temperature Pulse Rate 82 89 84 Respiratory Rate 18 18 Blood Pressure Pulse Oximetry 93 99 03/30/21 20:20 03/30/21 20:59 03/30/21 22:10 Temperature 36.2 C L Pulse Rate 82 83 Respiratory Rate 18 Blood Pressure 151/81 H Pulse Oximetry 99 93 03/31/21 00:00 03/31/21 04:00 03/31/21 06:11 Temperature 36.2 C L Pulse Rate 77 78 78 Respiratory Rate 18 Blood Pressure 160/78 H Pulse Oximetry 97 03/31/21 08:00 03/31/21 08:14 03/31/21 08:23 Temperature Pulse Rate 84 87 90 Respiratory Rate 18 18 Blood Pressure Pulse Oximetry 99 03/31/21 12:00 Temperature Pulse Rate 83 Respiratory Rate Blood Pressure Pulse Oximetry Intake/Output Intake/Output: Intake & Output 03/28/21 03/29/21 03/30/21 03/31/21 23:59 23:59 23:59 23:59 Intake Total 1900 1580 1560 930 Output Total 1999 950 1400 500 Balance -100 630 160 430 Meds/Results Medications: Active Medications Generic Name Dose Route Start Last Admin Trade Name Freq
[2021-03-31] MEDS: ALBUTEROL SULFATE NEB 2.5 MG/0.5 ML INH INHALATION (13:41)
[2021-04-01] VITALS (21 sets, daily range): BP systolic 146–163; BP diastolic 78–87; PULSE 71–106; RESP 16–24; TEMP 36.4–36.8; O2SAT 93–100
[2021-04-01] MEDS: IPRATROPIUM BR 0.02% INH SOLN 0.5 MG/2.5 ML VIAL INHALATION ×4 (02:34→20:13)
[2021-04-01] MEDS: ALBUTEROL SULFATE NEB 2.5 MG/0.5 ML INH INHALATION ×3 (02:34→20:13)
[2021-04-01 05:17] LABS: Hematocrit 47.2 % (37.0-47.0); Hemoglobin 14.6 g/dL (12.0-15.0); Mean Corpuscular HGB Conc 30.9 g/dl (32-36); Mean Corpuscular Hemoglobin 30.7 pg (26-34); Mean Corpuscular Volume 99.4 fl (80-100); Mean Platelet Volume 9.1 fl (7.4-10.4); Platelet Count Result 244 k/mm3 (150-375); Red Blood Count 4.75 M/mm3 (4.2-5.4); Red Cell Distribution Width 12.9 % (11.5-14.5); White Blood Count 9.3 K/mm3 (4.5-10.0)
[2021-04-01 05:41] LABS: Blood Urea Nitrogen 42 mg/dL (7-17); Calcium 9.1 mg/dL (8.4-10.2); Carbon Dioxide > 40 mmol/L (22-30); Chloride 96 mmol/L (98-107); Estimated CRCL calculation 59 ml/min; Estimated Glomerular Filt Rate > 60; Glucose 136 mg/dL (65-105); Potassium 5.2 mmol/L (3.4-5.0); Sodium 137 mmol/L (137-145)
[2021-04-01] MEDS: methylPREDNISolone SOD SUCC 40 MG VIAL IV PUSH (06:06)
[2021-04-01 08:06] LABS: NT Pro B Type Natriuretic Pept 655 pg/mL (5-100)
[2021-04-01] MEDS: BUDESONIDE RESPULE NEB 0.5 MG/2 ML AMP 1 MG INHALATION ×2 (08:30→20:13)
--- NOTE | 2021-04-01 09:15 | P.PNIM_ITS ---
Progress Note: A&P Assessment and Plan (1) COPD exacerbation: Code(s): J44.1 - Chronic obstructive pulmonary disease with (acute) exacerbation Status: Acute Assessment and Plan: * Severe COPD with acute exacerbation and acute on chronic hypercapnic respiratory failure requiring noninvasive ventilation of BiPAP. * Did not use Bipap last night or night before * Her FEV1 was 26% of predicted on her last PFT. * Her NC is at 3 L O2 with sats at 98-100%. She uses 2 L O2 NC at home 3L with activity * Patient stated the home O2 eval was done this am. Will look for report * Ceftriaxone 1 g daily and azithromycin 500 mg daily for a total of 7 days, day 6 * Prednisone 50mg PO daily hours * Albuterol neb Q6hr PRN * ipratropium neb, Pulmicort 1.0 mg neb Q6hr * Regular diet with protein shakes t.i.d.. * Continue Chantix 1 mg PO bid for 3-6 months for Smoking Cessation. * Pulmonology consult thank you for recommendations * Education about smoking cessation * PT/OT * Patient to chair (2) Acute respiratory failure with hypoxia and hypercarbia: Code(s): J96.01 - Acute respiratory failure with hypoxia; J96.02 - Acute respiratory failure with hypercapnia Status: Acute Assessment and Plan: * ABG showed pH 7.380, pCO@ 55.1, pO2 67.5, HCO3 31.9 * trying to wean from BiPAP overnight, has not used since 03/30/21 * Supplemental oxygen to maintain saturations above 88% * Solu-Medrol 40 mg IV q.6 hours * chest x-ray: Mild reticular opacities in the right lower lung zone which could represent atelectasis, pneumonia or mild pulmonary edema superimposed over emphysema. * BNP is 655 * Furosemide 20mg IV once * Echo showing EF of 65-70% with diastolic grade 1 dysfunction * Sputum culture came back with yeast * Continue IV ceftriaxone and azithromycin (3) COPD with emphysema: Code(s): J43.9 - Emphysema, unspecified Status: Acute Assessment and Plan: * As above * pt uses 2-3L of o2 with activity and sleep at home * PFT (10/25/18) shows a FEV1 25% and severe hyperinflation * She takes Stiolto Respimat and PRN albuterol at home * She used to see Dr. Bobby but hasn't followed up with a Yeast Culture Developer in years. * executive services administrator consult for home O2 concern * Continue pulmcort neb, atrovent schedule and PRN albuterol * Will need to follow up with pulmonology after discharge (4) Weight loss: Code(s): R63.4 - Abnormal weight loss Status: Acute Assessment and Plan: * Onging since last year * CT of the abd/pelv last year for this with no etiology * likely due to emphysema and significant calorie consumption with that disease * Clinical Law Professor consult for severe malnutrition * Supplements TID (5) Tobacco abuse: Code(s): Z72.0 - Tobacco use Status: Acute Assessment and Plan: * Pt understands she needs to quit smoking and has been using Chantix * Education about smoking cessation was performed again. * Patient stated that she has been on Chantix for the last two weeks * Will need discharge education again. (6) Acute metabolic encephalopathy: Code(s): G93.41 - Metabolic encephalopathy Status: Acute Assessment and Plan: * Resolved * likely due to hypoxia with a reported o2 sat of 55% prior to admission * CT of the brain negative for acute pathology * Neuro exam WNL (7) Bacteria in urine: Code(s): R82.71 - Bacter
--- NOTE | 2021-04-01 09:15 | PM.IMPN ---
Progress Note: A&P Assessment and Plan (1) COPD exacerbation: Code(s): J44.1 - Chronic obstructive pulmonary disease with (acute) exacerbation Status: Acute Assessment and Plan: Severe COPD with acute exacerbation and acute on chronic hypercapnic respiratory failure requiring noninvasive ventilation of BiPAP. Did not use Bipap last night or night before Her FEV1 was 26% of predicted on her last PFT. Her NC is at 3 L O2 with sats at 98-100%. She uses 2 L O2 NC at home 3L with activity Patient stated the home O2 eval was done this am. Will look for report Ceftriaxone 1 g daily and azithromycin 500 mg daily for a total of 7 days, day 6 Prednisone 50mg PO daily hours Albuterol neb Q6hr PRN ipratropium neb, Pulmicort 1.0 mg neb Q6hr Regular diet with protein shakes t.i.d.. Continue Chantix 1 mg PO bid for 3-6 months for Smoking Cessation. Pulmonology consult thank you for recommendations Education about smoking cessation PT/OT Patient to chair (2) Acute respiratory failure with hypoxia and hypercarbia: Code(s): J96.01 - Acute respiratory failure with hypoxia; J96.02 - Acute respiratory failure with hypercapnia Status: Acute Assessment and Plan: ABG showed pH 7.380, pCO@ 55.1, pO2 67.5, HCO3 31.9 trying to wean from BiPAP overnight, has not used since 03/30/21 Supplemental oxygen to maintain saturations above 88% Solu-Medrol 40 mg IV q.6 hours chest x-ray: Mild reticular opacities in the right lower lung zone which could represent atelectasis, pneumonia or mild pulmonary edema superimposed over emphysema. BNP is 655 Furosemide 20mg IV once Echo showing EF of 65-70% with diastolic grade 1 dysfunction Sputum culture came back with yeast Continue IV ceftriaxone and azithromycin (3) COPD with emphysema: Code(s): J43.9 - Emphysema, unspecified Status: Acute Assessment and Plan: As above pt uses 2-3L of o2 with activity and sleep at home PFT (10/25/18) shows a FEV1 25% and severe hyperinflation She takes Stiolto Respimat and PRN albuterol at home She used to see Dr. Bobby but hasn't followed up with a Certified Adaptive Physical Educator in years. ambulatory services representative consult for home O2 concern Continue pulmcort neb, atrovent schedule and PRN albuterol Will need to follow up with pulmonology after discharge (4) Weight loss: Code(s): R63.4 - Abnormal weight loss Status: Acute Assessment and Plan: Onging since last year CT of the abd/pelv last year for this with no etiology likely due to emphysema and significant calorie consumption with that disease Customer Support Technician consult for severe malnutrition Supplements TID (5) Tobacco abuse: Code(s): Z72.0 - Tobacco use Status: Acute Assessment and Plan: Pt understands she needs to quit smoking and has been using Chantix Education about smoking cessation was performed again. Patient stated that she has been on Chantix for the last two weeks Will need discharge education again. (6) Acute metabolic encephalopathy: Code(s): G93.41 - Metabolic encephalopathy Status: Acute Assessment and Plan: Resolved likely due to hypoxia with a reported o2 sat of 55% prior to admission CT of the brain negative for acute pathology Neuro exam WNL (7) Bacteria in urine: Code(s): R82.71 - Bacteriuria Status: Acute Assessment and Plan: Urine cx grew group B strep Pt is on IV ceftriaxone and azithromycin 7 days for coverage. complete full antibiotic course Subjective Date/time seen: 04/01/21 08:15 Ms. Cunha is a 65-year-old female with a past medical history COPD depression anxiety and tobacco use who presented to the ED on 03/26/2021 with complaints of altered mental status. She was able to sat well throughout the night and said that she got really good sleep again last night. She als
[2021-04-01] MEDS: atenoloL 25 MG TABLET PO ×2 (09:16→20:32)
[2021-04-01] MEDS: VARENICLINE 1 MG TABLET PO ×2 (09:17→17:21)
[2021-04-01] MEDS: FUROSEMIDE INJ 40 MG/4 ML VIAL 20 MG IV PUSH (09:17)
[2021-04-01] MEDS: ENOXAPARIN 40 MG/0.4 ML SYRINGE SUB-Q (09:18)
[2021-04-01] MEDS: PANTOPRAZOLE SODIUM IV 40 MG VIAL IV PUSH (09:18)
[2021-04-01] MEDS: ACETAMINOPHEN 325 MG TABLET 650 MG PO (09:41)
--- NOTE | 2021-04-01 10:07 | PM.PNPUL ---
Progress Note: A&P Assessment and Plan (1) COPD exacerbation: Code(s): J44.1 - Chronic obstructive pulmonary disease with (acute) exacerbation Status: Acute Assessment and Plan: This patient has severe COPD with panlobular emphysema on CT scan from 06/17/2019. Patient has PFTs from 08/06/2018 with an FEV1 of 26% predicted. An FEV1: FVC ratio of 26%. A total lung capacity of 169%. Functional residual capacity of 271% and residual volume of 320%. Patient has chronic hypercarbic respiratory failure with a blood gas of 7.38/55/67 on 2 L nasal cannula. Patient would benefit from noninvasive ventilation at night due to her chronic CO2 retention from COPD. Patient did not tolerate BiPAP as the pressures were too high. I have initiated the process for a home trilogy and if that can be set up in the hospital tonight we will do that. In the meantime I will place her on a VATS 80 with a rate of 14, tidal volume 450, EPAP 5, min I Pap 6 max IPAP 20 and 30% FiO2. I will obtain an ABG Prior to removal of the noninvasive and an overnight oximetry with an apnea link on the settings. 04/01 patient has no wheezes and says she is close to baseline I will switch her to prednisone 50 mg p.o. q.day. Continue ipratropium bromide 0.5 mg Q 6, albuterol 2.5 mg Q 6, budesonide 1 mg inhaled Q 12, Continue ceftriaxone and azithro while in house. Titrate FiO2 for O2 sats of 88-92% She's agreed to outpatient pulmonary rehab enrollement [facility] 04/02. Subjective Date/time seen: 04/01/21 10:07 Interval history: 04/01 Patient states she is slowly improving. Saturation on 1 L is 96%. Patient states she is willing to utilize noninvasive ventilation for her hypercarbia. Patient did not tolerate the BiPAP pressures she said the BiPAP was uncomfortable and she could not sleep with the machine. Review of Systems Review of Systems: All systems reviewed & are unremarkable except as noted in HPI and below Eyes: Eyes: Reports no additional eye complaints ENT: Reports system reviewed and no additional complaints, except as documented and Reports sinus pressure Cardiovascular: Cardiovascular: Reports no additional cardiovascular complaints Respiratory: Respiratory: Reports no additional respiratory complaints Gastrointestinal: Gastrointestinal: Reports no additional gastrointestinal complaints Musculoskeletal: Musculoskeletal: Reports no additional musculoskeletal complaints Integumentary/Breasts: Skin/Breast: Reports system reviewed and no additional complaints, except as docu Neurologic: Reports system reviewed and no additional complaints, except as documented and Reports behavioral changes Psychiatric: Psychiatric: Reports no additional psychiatric complaints and Reports behavioral changes Endocrine: Endocrine: Reports no additional endocrine complaints Exam Const: General: cooperative and healthy appearing Orientation/consciousness: oriented to person, oriented to place and oriented to time HENMT: Head: normal to inspection Ears: hearing grossly normal bilaterally Mouth: Yes Normal oral and palatal mucosa present Throat: tonsils absent Eyes: General: appearance normal, both eyes and all related structures Neck: Neck: normal visual inspection Chest: Chest palpation & inspection: normal inspection of the chest Resp: Effort & Inspection: normal respiratory effort Cardio: Jugular venous distension: no JVD GI: Inspection: normal to inspection Skin: General skin exam: normal color Neuro: General: oriented to person, oriented to place and oriented to time Extrem: General: normal to inspection Psych: Appearance: grossly normal Objective Data Vital Signs Vital Signs: Vital Signs - 24 hr 03/31/21 12:00 03/31/21 13:42 03/31/21 13:54 Temperature Pulse Rate 83 79 88 Respiratory Rate 20 20 Blood Pressure Pulse Oximetry 03/31/21 14:00 03/31/21 16:00 03/31/21 20:00 Temperature 36.2 C
[2021-04-01] MEDS: predniSONE 10 MG TABLET 50 MG PO (11:16)
[2021-04-01] MEDS: LORazepam (*CRX) 1 MG TABLET PO ×2 (11:23→17:21)
--- NOTE | 2021-04-01 11:28 | PCRCNOTE ---
Home Trilogy arrangements being made with [facility]. .
[2021-04-02] VITALS (12 sets, daily range): BP systolic 162; BP diastolic 87; PULSE 73–94; RESP 18–34; TEMP 36.4; O2SAT 87–98
[2021-04-02 05:19] LABS: Alveolar/Arterial O2 Gradient 57.3 mmHg; Fractional Inspired Oxygen 30 %; Oxygen Content ABG 20.3 %vol (16.0-22.0); Oxygen Saturation ABG 95.2 % (95.0-100.0); Oxyhemoglobin 94.5 % THb (90.0-100.0); PO2 ABG 80.1 mmHg (80.0-100.0); PO2 FiO2 Ratio Arterial Blood 2.67 %; Total Hemoglobin 15.3 g/dL (12.0-18.0); pH ABG 7.373 (7.350-7.450)
[2021-04-02 05:22] LABS: Device NON-INVASIVE VENT; Modified Allen's Test Pass; PCO2 ABG 65.1 mmHg (35.0-45.0); Site Drawn RIGHT RADIAL
[2021-04-02 05:23] LABS: Non-Invasive Vent Rate 14 /MIN
[2021-04-02 06:06] LABS: Hemoglobin 14.6 g/dL (12.0-15.0); Mean Corpuscular HGB Conc 31.1 g/dl (32-36); Mean Corpuscular Hemoglobin 30.2 pg (26-34); Mean Corpuscular Volume 97.3 fl (80-100); Mean Platelet Volume 9.2 fl (7.4-10.4); Platelet Count Result 279 k/mm3 (150-375); Red Blood Count 4.83 M/mm3 (4.2-5.4); Red Cell Distribution Width 12.7 % (11.5-14.5); White Blood Count 11.3 K/mm3 (4.5-10.0)
[2021-04-02 06:27] LABS: Blood Urea Nitrogen 46 mg/dL (7-17); Calcium 9.1 mg/dL (8.4-10.2); Carbon Dioxide > 40 mmol/L (22-30); Chloride 95 mmol/L (98-107); Estimated CRCL calculation 59 ml/min; Estimated Glomerular Filt Rate > 60; Glucose 97 mg/dL (65-105); Potassium 4.9 mmol/L (3.4-5.0); Sodium 140 mmol/L (137-145)
[2021-04-02] MEDS: ACETAMINOPHEN 325 MG TABLET 650 MG PO (07:17)
[2021-04-02] MEDS: BUDESONIDE RESPULE NEB 0.5 MG/2 ML AMP 1 MG INHALATION (07:54)
[2021-04-02] MEDS: IPRATROPIUM BR 0.02% INH SOLN 0.5 MG/2.5 ML VIAL INHALATION (07:54)
[2021-04-02] MEDS: ALBUTEROL SULFATE NEB 2.5 MG/0.5 ML INH INHALATION (07:54)
[2021-04-02] MEDS: atenoloL 25 MG TABLET PO (08:37)
[2021-04-02] MEDS: VARENICLINE 1 MG TABLET PO (08:38)
[2021-04-02] MEDS: ENOXAPARIN 40 MG/0.4 ML SYRINGE SUB-Q (08:38)
[2021-04-02] MEDS: predniSONE 10 MG TABLET 50 MG PO (08:38)
[2021-04-02] MEDS: PANTOPRAZOLE 40 MG TABLET PO (08:38)
--- NOTE | 2021-04-02 09:09 | PM.PNPUL ---
Progress Note: A&P Assessment and Plan (1) COPD exacerbation: Code(s): J44.1 - Chronic obstructive pulmonary disease with (acute) exacerbation Status: Acute Assessment and Plan: This patient has severe COPD with panlobular emphysema on CT scan from 06/17/2019. On home oxygen 1 L at rest, 3 L with ambulation and 2 l at rest. Patient has PFTs from 08/06/2018 with an FEV1 of 26% predicted. An FEV1: FVC ratio of 26%. A total lung capacity of 169%. Functional residual capacity of 271% and residual volume of 320%. This is her first exacerbation requiring hospitalization. Maintained on LABA/LAMA at home. Patient has chronic hypercarbic respiratory failure with a blood gas of 7.38/55/67 on 2 L nasal cannula. Patient would benefit from noninvasive ventilation at night due to her chronic CO2 retention from COPD. Patient did not tolerate BiPAP as the pressures were too high. I have initiated the process for a home trilogy and [facility]. In the meantime I will place her on a VATS 80 with a rate of 14, tidal volume 450, EPAP 5, min I Pap 6 max IPAP 20 and 30% FiO2. I will obtain an ABG Prior to removal of the noninvasive and an overnight oximetry with an apnea link on the settings. 04/01 patient has no wheezes and says she is close to baseline I will switch her to prednisone 50 mg p.o. q.day. Continue ipratropium bromide 0.5 mg Q 6, albuterol 2.5 mg Q 6, budesonide 1 mg inhaled Q 12, Continue ceftriaxone and azithro while in house. Titrate FiO2 for O2 sats of 88-92% [facility] 04/02. 04/02 Patient continues to improve and is ready for discharge today. Patient wore the hospital AVAPS mode last night with a rate of 14, tidal volume 450, EPAP 5, inspiratory pressure min 6, inspiratory pressure max 20 30% FiO2. At the end of the night patient had a blood gas with a pH of 7.37/65/80. Patient had an overnight oximetry on the studies with an average saturation of 96%. Lowest saturation 89%. Saturation time less than or equal to 88% was 0 minutes. Finishing day 7of 7 antibiotics today. Ready for discharge on these pulmonary medications: Prednisone 50 mg PO X 4 days Stiolto respimat 2.5/2.5 at 2 puffs Q day Rescue albuterol at 2 puffs Q 4 H PRN SOB or wheezing Oxygen per home O2 assessment later today. AVAPS-AE when sleeps at rate of 18, tidal volume 450, EPAP 4-10, inspiratory pressure min 5, inspiratory pressure max 20, 3 liters bleed in. Machine in room and setting to be adjusted by [facility] prior to discharge. Follow up in pulmonary clinic in 2-3 weeks, I gave her our business card and informed our cloud engagement partner. She's agreed to outpatient pulmonary rehab enrollment. Spoke with Sudhakar Murphy. Subjective Date/time seen: 04/02/21 09:09 Interval history: Admitted 03/26 with COPD exacerbation 04/01 Patient states she is slowly improving. Saturation on 1 L is 96%. Patient states she is willing to utilize noninvasive ventilation for her hypercarbia. Patient did not tolerate the BiPAP pressures she said the BiPAP was uncomfortable and she could not sleep with the machine. Initiated home noninvasive ventilation process. Home trilogy was brought to the room but was not use last night. 04/02 Patient continues to improve and is ready for discharge today. Patient wore the hospital a VATS mode last night with a rate of 14, tidal volume 450, EPAP 5, inspiratory pressure min 6, inspiratory pressure max 20 30% FiO2. At the end of the night patient had a blood gas with a pH of 7.37/65/80. Patient had an overnight oximetry on the studies with an average saturation of 96%. Lowest saturation 89%. Saturation time less than or equal to 88% was 0 minutes. Review of Systems Review of Systems: All systems reviewed & are unremarkable except as noted in HPI and below Eyes: Eyes: Reports no additional eye complaints ENT: Reports system reviewed and no additional complaints, except as d
--- NOTE | 2021-04-02 10:08 | P.DS_ITS ---
DS: Admitting Diagnosis Admitting Diagnosis Admitting Diagnosis: COPD exacerbation DS: Discharge Diagnosis Discharge Diagnosis (1) COPD exacerbation: Code(s): J44.1 - Chronic obstructive pulmonary disease with (acute) exacerbation Status: Acute Assessment and Plan: * Severe COPD with acute exacerbation and acute on chronic hypercapnic respiratory failure requiring noninvasive ventilation of BiPAP. * Home trilogy with proper settings per pulmonology * Her FEV1 was 26% of predicted on her last PFT. * Needs home O2 eval for particular instructions * Home O2 pending * Ceftriaxone 1 g daily and azithromycin 500 mg daily for a total of 7 days, completed * Prednisone 50mg PO daily for 4 days * Albuterol neb Q6hr PRN * ipratropium neb, Pulmicort 1.0 mg neb Q6hr * Regular diet with protein shakes t.i.d.. * Continue Chantix 1 mg PO bid for 3-6 months for Smoking Cessation. * Pulmonology consult thank you for recommendations * Education about smoking cessation * PT/OT * Patient to chair (2) Acute respiratory failure with hypoxia and hypercarbia: Code(s): J96.01 - Acute respiratory failure with hypoxia; J96.02 - Acute respiratory failure with hypercapnia Status: Acute Assessment and Plan: * ABG showed pH 7.380, pCO@ 55.1, pO2 67.5, HCO3 31.9 * trying to wean from BiPAP overnight, has not used since 03/30/21 * Supplemental oxygen to maintain saturations above 88% * Solu-Medrol 40 mg IV q.6 hours * chest x-ray: Mild reticular opacities in the right lower lung zone which could represent atelectasis, pneumonia or mild pulmonary edema superimposed over emphysema. * BNP is 655 * Furosemide 20mg IV once * Echo showing EF of 65-70% with diastolic grade 1 dysfunction * Sputum culture came back with yeast * Continue IV ceftriaxone and azithromycin (3) COPD with emphysema: Code(s): J43.9 - Emphysema, unspecified Status: Acute Assessment and Plan: * As above * pt uses 2-3L of o2 with activity and sleep at home * PFT (10/25/18) shows a FEV1 25% and severe hyperinflation * She takes Stiolto Respimat and PRN albuterol at home * She used to see Dr. Bobby but hasn't followed up with a Route Service Representative in years. * supervisor volunteer services consult for home O2 concern * Continue pulmcort neb, atrovent schedule and PRN albuterol * Will need to follow up with pulmonology after discharge (4) Weight loss: Code(s): R63.4 - Abnormal weight loss Status: Acute Assessment and Plan: * Onging since last year * CT of the abd/pelv last year for this with no etiology * likely due to emphysema and significant calorie consumption with that disease * Osteopathic Medicine Teacher consult for severe malnutrition * Supplements TID (5) Tobacco abuse: Code(s): Z72.0 - Tobacco use Status: Acute Assessment and Plan: * Pt understands she needs to quit smoking and has been using Chantix * Education about smoking cessation was performed again. * Patient stated that she has been on Chantix for the last two weeks * Will need discharge education again. (6) Acute metabolic encephalopathy: Code(s): G93.41 - Metabolic encephalopathy Status: Acute Assessment and Plan: * Resolved * likely due to hypoxia with a reported o2 sat of 55% prior to admission * CT of the brain negative for acute pathology * Neuro exam WNL (7) Bacteria in urine: Code(
--- NOTE | 2021-04-02 10:08 | PM.DS ---
DS: Admitting Diagnosis Admitting Diagnosis Admitting Diagnosis: COPD exacerbation DS: Discharge Diagnosis Discharge Diagnosis (1) COPD exacerbation: Code(s): J44.1 - Chronic obstructive pulmonary disease with (acute) exacerbation Status: Acute Assessment and Plan: Severe COPD with acute exacerbation and acute on chronic hypercapnic respiratory failure requiring noninvasive ventilation of BiPAP. Home trilogy with proper settings per pulmonology Her FEV1 was 26% of predicted on her last PFT. Needs home O2 eval for particular instructions Home O2 pending Ceftriaxone 1 g daily and azithromycin 500 mg daily for a total of 7 days, completed Prednisone 50mg PO daily for 4 days Albuterol neb Q6hr PRN ipratropium neb, Pulmicort 1.0 mg neb Q6hr Regular diet with protein shakes t.i.d.. Continue Chantix 1 mg PO bid for 3-6 months for Smoking Cessation. Pulmonology consult thank you for recommendations Education about smoking cessation PT/OT Patient to chair (2) Acute respiratory failure with hypoxia and hypercarbia: Code(s): J96.01 - Acute respiratory failure with hypoxia; J96.02 - Acute respiratory failure with hypercapnia Status: Acute Assessment and Plan: ABG showed pH 7.380, pCO@ 55.1, pO2 67.5, HCO3 31.9 trying to wean from BiPAP overnight, has not used since 03/30/21 Supplemental oxygen to maintain saturations above 88% Solu-Medrol 40 mg IV q.6 hours chest x-ray: Mild reticular opacities in the right lower lung zone which could represent atelectasis, pneumonia or mild pulmonary edema superimposed over emphysema. BNP is 655 Furosemide 20mg IV once Echo showing EF of 65-70% with diastolic grade 1 dysfunction Sputum culture came back with yeast Continue IV ceftriaxone and azithromycin (3) COPD with emphysema: Code(s): J43.9 - Emphysema, unspecified Status: Acute Assessment and Plan: As above pt uses 2-3L of o2 with activity and sleep at home PFT (10/25/18) shows a FEV1 25% and severe hyperinflation She takes Stiolto Respimat and PRN albuterol at home She used to see Dr. Bobby but hasn't followed up with a Senior Litigation Paralegal in years. park services specialist consult for home O2 concern Continue pulmcort neb, atrovent schedule and PRN albuterol Will need to follow up with pulmonology after discharge (4) Weight loss: Code(s): R63.4 - Abnormal weight loss Status: Acute Assessment and Plan: Onging since last year CT of the abd/pelv last year for this with no etiology likely due to emphysema and significant calorie consumption with that disease International Broadcast Music Librarian consult for severe malnutrition Supplements TID (5) Tobacco abuse: Code(s): Z72.0 - Tobacco use Status: Acute Assessment and Plan: Pt understands she needs to quit smoking and has been using Chantix Education about smoking cessation was performed again. Patient stated that she has been on Chantix for the last two weeks Will need discharge education again. (6) Acute metabolic encephalopathy: Code(s): G93.41 - Metabolic encephalopathy Status: Acute Assessment and Plan: Resolved likely due to hypoxia with a reported o2 sat of 55% prior to admission CT of the brain negative for acute pathology Neuro exam WNL (7) Bacteria in urine: Code(s): R82.71 - Bacteriuria Status: Acute Assessment and Plan: Urine cx grew group B strep Pt is on IV ceftriaxone and azithromycin 7 days for coverage. complete full antibiotic course DS: Summary Hospital Course Hospital Course: Ms. Cunha is a 65-year-old female with a past medical history COPD depression anxiety and tobacco use who presented to the ED on 03/26/2021 with complaints of altered mental status. Patient states that she was at work and her coworkers had found her lethargic and unable to make
[2021-04-02] MEDS: LORazepam (*CRX) 1 MG TABLET PO (10:18)
--- NOTE | 2021-04-02 11:44 | HOMEO2EVAL ---
Evaluation was performed at [facility] Home Oxygen Evaluation RC: Home Oxygen (O2) Evaluation Start: 04/01/21 15:52 Freq: ONCE Status: Active Protocol: RPE Activity Type Activity Date Activity User E-Sign Co-Sign Detail Recorded Client Recorded Date Recorded By Document 04/02/21 11:42 DENNIS [email or web address] 04/02/21 11:44 DENNIS Document 04/02/21 11:43 DENNIS [id number] 04/02/21 11:44 DENNIS 04/02/21 04/02/21 11:42 11:43 Home O2 Evaluation Test Phase Resting Resting Oxygen Delivery Room Air Nasal Cannula Oxygen Flow Rate (L/min) 1 Pulse Oximetry (90-100 %) 87 L 92 Pulse Rate (60-100 beats/min) 88 90 Treatment Charges O2 Evaluation - Inpatient
--- NOTE | 2021-04-02 11:45 | PCRCNOTE ---
ROOM AIR SAT OF 88% ENTERED FOR RE-QUALIFICATION OF HOME O2.
--- NOTE | 2021-04-02 11:47 | PCRCNOTE ---
PT HAS PERSONAL INOGEN POC, A FRIEND IS BRINGING IN UPON D/C FOR TRANSPORT HOME FOR O2 NEEDS. ONCE PT IS HOME, SHE IS INSTRUCTED TO CALL [facility] FOR SET UP OF O2. THIS INCLUDES O2 REQUIRED FOR BLEED-IN WITH TRILOGY NONIVASIVE VENT.
--- NOTE | 2021-04-02 13:35 | PCRCNOTE ---
Trilogy and oxygen arranged with [facility]. [facility] is aware that patient is discharging home today and the patient was instructed to call them when she is discharged. Phone number [phone]
== END 2021-04-02 14:30 | disposition home health service (06) | DRG 189 ==
LOC: ANHED 15:27 → ANHIMU 17:42 → ANH2MED 03-30 09:13 → ANHIMU 04-04 15:39
PROVIDERS: Internal Medicine; Internal Medicine Pulmonary Disease; Nurse Practitioner; Physician Assistant; Admitting Provider Family Medicine; Emergency Provider Emergency Medicine; PCP Family Medicine Adolescent Medicine; Visit Provider Nurse Practitioner
DX: J96.22 Acute and chronic respiratory failure with hypercapnia (principal); G93.41 Metabolic encephalopathy; R82.71 Bacteriuria; B95.1 Streptococcus, group B, as the cause of diseases classified elsewhere; J43.1 Panlobular emphysema; J96.01 Acute respiratory failure with hypoxia; R63.4 Abnormal weight loss; F17.210 Nicotine dependence, cigarettes, uncomplicated; F41.8 Other specified anxiety disorders; Z79.899 Other long term (current) drug therapy; Z99.81 Dependence on supplemental oxygen
CPT/HCPCS: 36415; 36600; 51701; 70450; 71045; 80048; 80053; 80307; 81001; 82140; 82375; 82805; 82948; 83050; 83605; 83735; 83880; 84443; 84484; 85025; 85027; 85610; 85730; 86140; 87040; 87070; 87077; 87086; 87088; 87205; 93005; 93306; 94002; 94003; 94618; 94640; 94667; 94762; 96361; 96365; 96367; 96375; 97110; 97116; 97161; 97165; 97530; 97535; 99291; A9270; C9113; G0378; J0456; J0692; J0696; J1650; J1940; J2920; J2930; J3370; J7030; J7512

== ENCOUNTER 2021-07-09 14:26 | Outpatient (CLI) | payer OTHER, SELFPAY ==
--- NOTE | 2021-07-09 16:56 | WPDPFTINT ---
PFT Procedure Performed PFT Procedure Performed Plethysmography (Lung Vol) Diffusing Cap (DLCO) Flow Vol Loop Spirometry w/o Bronchodil PFT Interpretation This is a pulmonary function test with spirometry, plethysmography and diffusing capacity. The test was performed and results interpreted in accordance with the 2019 and 2005 ATS/ERS Task Force guidelines respectively using the Global Lung Function Initiative-2012 reference equations. Patient demonstrated good effort and cooperation. Reproducibility criteria were met. The quality of the spirometry maneuver was Grade A. Findings: Spirometry: There is decreased maximal expiratory airflow at all lung volumes with a concave expiratory flow tracing. The contour the inspiratory flow tracing is normal. The FVC is 1.81 L, 49% predicted. The FEV1 is 0.41 L, 14% predicted. The FEV1: FVC ratio is 23%. Plethysmography: The total lung capacity is 11.58 L, 194% predicted. The functional residual capacity is 10.56 L, 308% predicted. The residual volume is 9.78 L, 409% predicted. Diffusing capacity. : The absolute diffusion capacity is 3.5, 15% predicted. The diffusing capacity corrected for alveolar volume is 1.11, 27% predicted. In comparison to the previous study on 06/17/2019 the FVC has decreased from 2.45 L to 1.81 L. The FEV1 has decreased from 0.59 L to 0.41 L. The total lung capacity has increased from 9.31 L to 11.58 L. The functional residual capacity has increased from 7.97 L to 10.56 L. The residual volume has increased from 6.86 L to 9.78 L. The absolute diffusion capacity has decreased from 4.8 to 3.5. The diffusing capacity corrected for alveolar volume has decreased from 1.34 to 1.11 Impression: There is a very severe obstructive abnormality. The increase in residual volume is consistent with air trapping from an obstructive abnormality. Hyperinflation is present is demonstrated by the increase in functional residual capacity and total lung capacity and is consistent with an obstructive abnormality. The absolute diffusing capacity is severely decreased and remains severely decreased when corrected for alveolar volume. in comparison to the previous pulmonary function test on 06/17/2019 there has been a greater than anticipated time dependent decrease in FVC, FEV1, absolute diffusion capacity and diffusing capacity corrected for alveolar volume. There has been a greater than anticipated time dependent increase in total lung capacity, functional residual capacity and residual volume. Clinical correlation is recommended There are no prior studies for comparison
== END 2021-07-09 14:27 | disposition home or self-care (01) ==
PROVIDERS: PCP Family Medicine Adolescent Medicine; Visit Provider Family Medicine Adolescent Medicine
DX: J43.9 Emphysema, unspecified (principal)
CPT/HCPCS: 94375; 94726; 94729

== ENCOUNTER 2021-07-26 17:18 | Inpatient (IN) | payer OTHER, SELFPAY ==
[2021-07-26] VITALS (9 sets, daily range): BP systolic 103–131; BP diastolic 67–74; PULSE 85–123; RESP 12–30; TEMP 37.3; O2SAT 60–100
--- NOTE | ~2021-07-26 | XR_ITS ---
XR chest 1V portable DATE: 07/26/2021 17:48 INDICATION: Shortness of breath. Low oxygenation. COPD. TECHNIQUE: Portable upright AP chest on 07/26/2021 at 1745 hours COMPARISON: 03/30/2021 portable AP chest at 0839 hours FINDINGS: There is prominent bilateral hyperinflation with flattening of the diaphragm, consistent wi th COPD. There is pulmonary vascular congestion and redistribution. There is patchy infiltrate in the mid and lower right lung field primarily, with Mj B-lines. Congestive changes and pulmonary edema are sug gested. Pneumonia is not excluded, particularly considering the relatively medial and lateral infiltr ates and Mj B-lines.. No pleural effusion or pneumothorax is detected. Diffuse osteopenia. IMPRESSION: Pulmonary vascular congestion , right mid and lower lung infiltrate and Mj B-lines, s uggesting pulmonary edema and congestive heart failure. Pneumonia is also a consideration, particular ly considering the relatively unilateral congestive changes and infiltrate. Clinical correlation is a dvised Severe COPD Reviewed, dictated and finalized at location A. IMPRESSION: Pulmonary vascular congestion , right mid and lower lung infiltrate and Mj B-lines, suggesting pulmonary edema and congestive heart failure. P neumonia is also a consideration, particularly considering the relatively unila teral congestive changes and infiltrate. Clinical correlation is advised Severe COPD
--- NOTE | ~2021-07-26 | CT_ITS ---
EXAMINATION: CTA chest PE protocol DATE: 07/26/2021 21:06 INDICATION: Shortness of breath. Hypoxia. Elevated d-dimer. TECHNIQUE: Computed tomography angiography (CTA) of the chest was performed with 100 mL Omnipaque-350 intravenous contrast timed to evaluate the pulmonary arteries. Coronal maximum intensity projection 3D-reconstructions were created by the technologist. Automated exposure control and iterative reconst ruction technique were employed. Exam dose: 223.02 mGy-cm total exam DLP. COMPARISON: 06/17/2019 CT chest 09/13/2018 CT pulmonary scan FINDINGS: There is diagnostic contrast enhancement of the pulmonary arteries and no evidence of pulmo nary embolism. Normal heart size. No pericardial effusion. No thoracic aortic aneurysm or dissection. No hilar or mediastinal mass lesion or lymphadenopathy. There is severe emphysema. There is patchy infiltrate involving predominantly the dependent lower lobes, right greater than left . Consider aspiration pneumonitis and pneumonia. No suspicious osteolytic or osteoblastic lesions are noted. IMPRESSION: Bilateral primarily dependent lower lobe infiltrates, right greater than left; consider aspiration pneumonitis, pneumonia Severe emphysema No evidence of pulmonary embolism Reviewed, dictated and finalized at Location [facility]. Reviewed, dictated and finalized at location A. IMPRESSION: Bilateral primarily dependent lower lobe infiltrates, right greate r than left; consider aspiration pneumonitis, pneumonia Severe emphysema No evidence of pulmonary embolism
--- NOTE | 2021-07-26 17:36 | ECG_ITS ---
Measurements Intervals [place] Rate: 116 P: 86 IA: 112 QRS: 63 QRSD: 100 T: 51 QT: 303 QTc: 421 Interpretive Statements SINUS TACHYCARDIA WITH SHORT IA INTERVAL INCOMPLETE RIGHT BUNDLE BRANCH BLOCK DELAYED PRECORDIAL R/S TRANSITION BASELINE ARTIFACT- I, II, AVR, AVL, AVF, V1-V6 ABNORMAL ECG Electronically Signed On 07-27-2021 14:28:19 CDT by Nick Appiah D.O.
[2021-07-26 17:51] LABS: Base Excess ABG -0.3 mEq/l (+/-2.0); Carboxyhemoglobin 0.9 % THb (0-2.0); Fractional Inspired Oxygen 21 %; HCO3 ABG 27.4 mEq/l (22.0-26.0); Methemoglobin ABG 0.2 %THb (0-1.5); Oxygen Content ABG 16.8 %vol (16.0-22.0); Oxygen Saturation ABG 98.9 % (95.0-100.0); Oxyhemoglobin 97.3 % THb (90.0-100.0); PO2 ABG 166.5 mmHg (80.0-100.0); Reduced Hemoglobin 1.6 %THb (0-5.0)
[2021-07-26 17:52] LABS: pH ABG 7.284 (7.350-7.450)
[2021-07-26 17:53] LABS: Device NON-REBREATHER MASK; Modified Allen's Test Pass; Site Drawn RIGHT RADIAL
--- NOTE | 2021-07-26 17:53 | ED.SOB ---
HPI - SOB/Dyspnea General Chief Complaint: Shortness of Breath/Dyspnea Stated Complaint: sob, low o2 Time Seen by Provider: 07/26/21 17:33 Source: patient and RN notes reviewed Mode of arrival: ambulatory History of Present Illness HPI Narrative: This is a 65 year old female with history of COPD on 3 L NC who presents for evaluation of shortness of breath. She developed shortness of breath yesterday. She denies worsening cough, fever, chills, nausea or vomiting. She reports chronic bilateral flank pain . She denies sick contacts. She was found to be tachypniec with oxygen saturation of 60% on her 3 L NC. She denies history of intubation or CPAP. Related Data Home Medications Medication Instructions Recorded Confirmed Chantix Continuing Month Box 1 mg PO BID 03/26/21 03/26/21 atenolol 25 mg PO BID 03/26/21 03/26/21 hydrocodone-acetaminophen 1 tablet PO BID PRN 03/26/21 03/26/21 hyoscyamine sulfate 0.125 mg PO QID PRN 03/26/21 03/26/21 lorazepam 1 mg PO TID PRN 03/26/21 03/26/21 citalopram 40 mg tablet 20 mg PO DAILY 04/30/21 linaclotide 72 mcg capsule 72 mcg PO .PRN cap 04/30/21 Allergies Allergy/AdvReac Type Severity Reaction Status Date / Time moxifloxacin Allergy Mild RASH Verified 04/30/21 15:09 Penicillins Allergy Mild RASH Verified 04/30/21 15:09 Review of Systems Review of Systems: All systems reviewed & are unremarkable except as noted in HPI and below Constitutional: Constitutional: Denies chills and Denies fever(s) Cardiovascular: Cardiovascular: Reports chest pain (chronic) and Denies radiating jaw, neck or arm pain Respiratory: Respiratory: Reports cough (chronic) and Reports dyspnea Gastrointestinal: Gastrointestinal: Denies diarrhea, Denies nausea and Denies vomiting PMFSH Past Medical History Medical History Chronic respiratory failure with hypoxia and hypercapnia COPD with emphysema Depression with anxiety Tobacco abuse Surgical History Surgical History History of orthopedic surgery ORIF right ankle fracture. Right wrist surgery. Right shoulder arthroscopy. Family History Family History Father Diabetes mellitus Sibling Diabetes mellitus Mother Hypertension Social History Social History (Updated 04/30/21 @ 15:15 by Samantha Falcon [facility]) Social History: The patient lives in her own home in [place] with her cat and dog. She has no children. She has smoked 1 pack of cigarettes per day for the last 50 years or so. 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 She designates her friend Muna Delong as her surrogate decision maker and she wishes to be a full code. Smoking packs per day: 1 Smoking cigarettes per day: 20.0 Years smoked: 50 Smoking pack-years: 50.00 Smoking status: Former smoker Spiritual care concerns: No Exam Const: General: ill appearing Nutritional Appearance: thin Orientation/consciousness: patient oriented x3 HENMT: Head: normocephalic and atraumatic Face and sinus: face symmetric Mouth: Yes Normal oral and palatal mucosa present, Yes lip normal, Yes oropharynx normal and Yes moist mucous membranes Eyes: EOM: EOMs intact bilaterally Resp: Effort & Inspection: no retractions and tachypneic Auscultation: rales Cardio: Rate: tachycardic Rhythm: regular rhythm Heart sounds: no murmurs GI: GI Palp: Yes Soft to palpation, No Tenderness to palpation present (GI) and No Guarding due to palpation present (GI) Auscultation: normal bowel sounds Skin: General skin exam: normal color Rashes: no rashes Neuro: General: patient oriented x3, moves all extremities and CN's II-XI intact bilaterally Course Reevaluation(s) Reevaluation #1: Patient PH has improved. She is compensating. She is sleeping but eas
[2021-07-26 18:06] LABS: Basophils Percent Auto 0.3 % (0.2-1.2); Eosinophils Percent Auto 0.2 % (0-4.4); Hematocrit 41.4 % (37.0-47.0); Hemoglobin 12.7 g/dL (12.0-15.0); Immature Granulocyte Absolute 0.04 K/mm3 (0.00-0.031); Immature Granulocyte Percent A 0.3 % (0-0.5); Lymphocytes Absolute Auto 0.98 K/mm3 (0.9-3.2); Lymphocytes Percent Auto 8.4 % (18.3-44.2); Mean Corpuscular HGB Conc 30.7 g/dl (32-36); Mean Corpuscular Hemoglobin 30.8 pg (26-34); Mean Corpuscular Volume 100.5 fl (80-100); Mean Platelet Volume 9.2 fl (7.4-10.4); Monocytes Percent Auto 8.5 % (2.6-8.5); Neutrophils Absolute Auto 9.6 K/mm3 (1.3-6.7); Neutrophils Percent Auto 82.3 % (45.5-73.1); Platelet Count Result 256 k/mm3 (150-375); Red Blood Count 4.12 M/mm3 (4.2-5.4); Red Cell Distribution Width 12.5 % (11.5-14.5); White Blood Count 11.7 K/mm3 (4.5-10.0)
[2021-07-26 18:24] LABS: NT Pro B Type Natriuretic Pept 2110 pg/mL (5-100); Troponin I < 0.012 ng/mL (0.000-0.034)
[2021-07-26 18:33] LABS: Alanine Aminotransferase 18 U/L (4-35); Albumin Level 3.8 g/dL (3.5-5.1); Alkaline Phosphatase 123 U/L (38-126); Aspartate Amino Transferase 36 U/L (14-36); Bilirubin,Total 0.7 mg/dL (0.2-1.3); Blood Urea Nitrogen 39 mg/dL (7-17); Calcium 9.7 mg/dL (8.4-10.2); Carbon Dioxide > 40 mmol/L (22-30); Chloride 97 mmol/L (98-107); Estimated CRCL calculation 48 ml/min; Estimated Glomerular Filt Rate > 60; Glucose 129 mg/dL (65-110); Magnesium 2.1 mg/dL (1.6-2.3); Potassium 4.8 mmol/L (3.4-5.0); Sodium 141 mmol/L (137-145)
[2021-07-26 18:42] LABS: INR 0.9; Prothrombin Time 12.3 Seconds (11.1-14.7)
[2021-07-26 18:43] LABS: Partial Thromboplastin Time 28.6 SECONDS (22.3-36.8)
[2021-07-26] MEDS: methylPREDNISolone SOD SUCC 125 MG VIAL IV PUSH (19:01)
[2021-07-26 19:03] LABS: D Dimer 3.16 ug/mL (<0.48)
[2021-07-26 20:03] LABS: Alveolar/Arterial O2 Gradient 81.1 mmHg; Base Excess ABG 9.1 mEq/l (+/-2.0); Carboxyhemoglobin 0.9 % THb (0-2.0); Fractional Inspired Oxygen 35 %; Methemoglobin ABG 0.2 %THb (0-1.5); Oxygen Content ABG 15.8 %vol (16.0-22.0); Oxygen Saturation ABG 95.9 % (95.0-100.0); Oxyhemoglobin 94.6 % THb (90.0-100.0); PO2 ABG 87.8 mmHg (80.0-100.0); PO2 FiO2 Ratio Arterial Blood 2.51 %; Reduced Hemoglobin 4.3 %THb (0-5.0); Total Hemoglobin 11.8 g/dL (12.0-18.0); pH ABG 7.345 (7.350-7.450)
[2021-07-26 20:06] LABS: Device BIPAP; Expiratory Pressure 5 cmH2O; Inspiratory Pressure 14 cmH2O; Modified Allen's Test Pass; PCO2 ABG 69.4 mmHg (35.0-45.0); Site Drawn RIGHT RADIAL
--- NOTE | 2021-07-26 22:31 | PM.IMHP ---
H&P: HPI History of Present Illness Date/Time: 07/26/21 22:31 Chief Complaint: SHORTNESS OF BREATH Narrative: THIS IS A 65-YEAR-OLD FEMALE WITH PAST MEDICAL HISTORY SIGNIFICANT FOR COPD/EMPHYSEMA, TOBACCO DEPENDENCE, CHRONIC HYPERCARBIC HYPOXEMIC RESPIRATORY FAILURE ON 1 L OF OXYGEN AT REST AND 3 L WITH AMBULATION PATIENT HAS RECEIVED HER COVID VACCINATION. PATIENT PRESENTED TODAY TO THE EMERGENCY DUE TO WORSENING SHORTNESS OF BREATH SHE WAS FOUND TO BE SATURATING ON 60% ON 3 L OF OXYGEN BY NASAL CANNULA. AT THE TIME OF MY VISIT PATIENT WAS ON BIPAP AND SHE WAS UNABLE TO GIVE ME ANY HISTORY WHICH HAVE OBTAIN UPON REVIEWING MEDICAL RECORDS FROM OFFICE EMERGENCY ROOM AND HOSPITAL ADMISSIONS. PRELIMINARY WORKUP WAS SIGNIFICANT FOR A CT ANGIO PE PROTOCOL OF THE CHEST WITH INFILTRATES AND SEVERE EMPHYSEMATOUS BULLOUS DISEASE OF THE LUNG, AN ABG SHOWED A PH OF 7.345 WITH A PCO2 69.4 AND A PO2 OF 87. PATIENT HAS BEEN ADMITTED FURTHER EVALUATION AND TREATMENT. Review of Systems Review of Systems: ROS unobtainable: Yes unobtainable due to medical condition (CURRENTLY ON BIPAP) [facility] Past Medical History Medical History Chronic respiratory failure with hypoxia and hypercapnia COPD with emphysema Depression with anxiety Tobacco abuse Surgical History Surgical History History of orthopedic surgery ORIF right ankle fracture. Right wrist surgery. Right shoulder arthroscopy. Family History Family History Father Diabetes mellitus Sibling Diabetes mellitus Mother Hypertension Social History Social History (Updated 04/30/21 @ 15:15 by Samantha Falcon CMA) Social History: The patient lives in her own home in [place] with her cat and dog. She has no children. She has smoked 1 pack of cigarettes per day for the last 50 years or so. 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 She designates her friend Muna Delong as her surrogate decision maker and she wishes to be a full code. Smoking packs per day: 1 Smoking cigarettes per day: 20.0 Years smoked: 50 Smoking pack-years: 50.00 Smoking status: Former smoker Spiritual care concerns: No Meds Home Medications and Allergies Home Medications Medication Instructions Recorded Confirmed Type atenolol 25 mg PO BID 03/26/21 03/26/21 History hydrocodone-acetaminophen 1 tablet PO BID PRN 03/26/21 03/26/21 History lorazepam 1 mg PO TID PRN 03/26/21 03/26/21 History Stiolto Respimat 2 puff INHALATION DAILY #0 g 04/02/21 03/26/21 Rx albuterol sulfate 2 puff INHALATION Q4-5H PRN #0 g 04/02/21 03/26/21 Rx citalopram 40 mg tablet 20 mg PO DAILY 04/30/21 History quetiapine 50 mg PO HS 07/27/21 07/27/21 History Allergies Allergy/AdvReac Type Severity Reaction Status Date / Time moxifloxacin Allergy Mild RASH Verified 04/30/21 15:09 Penicillins Allergy Mild RASH Verified 04/30/21 15:09 Vital Signs Vital Signs - 24 hr 07/26/21 17:24 07/26/21 17:40 07/26/21 18:01 Temperature 99.2 F Pulse Rate 123 H Respiratory Rate 30 H 14 Blood Pressure 131/73 Pulse Oximetry 60 L 100 07/26/21 19:38 07/26/21 19:39 07/26/21 20:30 Temperature Pulse Rate 89 92 Respiratory Rate 14 13 18 Blood Pressure 103/67 111/69 Pulse Oximetry 97 97 07/26/21 21:05 07/26/21 22:06 Temperature Pulse Rate 87 85 Respiratory Rate 15 Blood Pressure 108/74 Pulse Oximetry 100 98 Exam Narrative: LAYING IN GURNEY BIPAP ON Const: General: comfortable, well developed, in distress respiratory (BIPAP ON) and other, ill appearing chronically and patient obtunded Nutritional Appearance: underweight Orientation/consciousness: patient obtunded HENMT: Head: normal to inspection, normocephalic and atraumatic Ears: hearing grossly normal bilaterally G
[2021-07-27] VITALS (23 sets, daily range): BP systolic 123–171; BP diastolic 67–84; PULSE 56–101; RESP 15–38; TEMP 36.1–37; O2SAT 96–100; BMI 16.1
--- NOTE | 2021-07-27 00:20 | ADMGEN ---
This patient, Kena Guevara, was admitted to IMU Room 212-01. Patient/family oriented to hospital policies and general routines including ID bracelet, bed and alarms, visiting hours, pain management, procedures, bathroom and other care routines, personal items, smoking policy, room service/diet, and visiting hours. Information on how to activate the Rapid Response Team has been discussed. Patient/Family are encouraged to report perceived risks to care and to ask questions if they do not understand what they are told or what they should do.
[2021-07-27] MEDS: methylPREDNISolone SOD SUCC 125 MG VIAL 60 MG IV PUSH ×5 (01:35→22:24)
--- NOTE | 2021-07-27 04:30 | PCRCNOTE ---
Pt ordered atrovent daria. Pt is covid rule-out. Pt to be given PRN albuterol inhaler instead once pharmacy sends one up. Nurse to talk to doctor about changing order.
[2021-07-27] MEDS: ALBUTEROL SULFATE (*SP) INHALER 2 PUFF INHALATION (04:36)
[2021-07-27 05:05] LABS: Hematocrit 37.9 % (37.0-47.0); Hemoglobin 11.8 g/dL (12.0-15.0); Immature Granulocyte Absolute 0.02 K/mm3 (0.00-0.031); Immature Granulocyte Percent A 0.3 % (0-0.5); Lymphocytes Absolute Auto 0.34 K/mm3 (0.9-3.2); Lymphocytes Percent Auto 5.3 % (18.3-44.2); Mean Corpuscular HGB Conc 31.1 g/dl (32-36); Mean Corpuscular Hemoglobin 30.6 pg (26-34); Mean Corpuscular Volume 98.2 fl (80-100); Mean Platelet Volume 9.2 fl (7.4-10.4); Monocytes Absolute Auto 0.1 K/mm3 (0.1-0.6); Monocytes Percent Auto 1.1 % (2.6-8.5); Neutrophils Percent Auto 93.3 % (45.5-73.1); Platelet Count Result 231 k/mm3 (150-375); Red Blood Count 3.86 M/mm3 (4.2-5.4); Red Cell Distribution Width 12.3 % (11.5-14.5); White Blood Count 6.4 K/mm3 (4.5-10.0)
[2021-07-27 05:25] LABS: Alanine Aminotransferase 17 U/L (4-35); Albumin Level 3.6 g/dL (3.5-5.1); Alkaline Phosphatase 89 U/L (38-126); Aspartate Amino Transferase 24 U/L (14-36); Bilirubin,Total 0.6 mg/dL (0.2-1.3); Blood Urea Nitrogen 30 mg/dL (7-17); Calcium 9.4 mg/dL (8.4-10.2); Carbon Dioxide > 40 mmol/L (22-30); Chloride 98 mmol/L (98-107); Estimated CRCL calculation 64 ml/min; Estimated Glomerular Filt Rate > 60; Glucose 124 mg/dL (65-110); Sodium 141 mmol/L (137-145)
[2021-07-27] MEDS: ALBUTEROL SULFATE (*SP) AEROSOL 1 PUFF 2 PUFF INHALATION ×3 (09:11→20:47)
[2021-07-27] MEDS: CITALOPRAM HYDROBROMIDE 20 MG TABLET PO (09:17)
[2021-07-27] MEDS: atenoloL 50 MG TABLET PO ×2 (09:17→17:06)
--- NOTE | 2021-07-27 10:48 | PM.IMPN ---
Progress Note: A&P Assessment and Plan (1) Acute and chronic respiratory failure, unspecified whether with hypoxia or hypercapnia: Code(s): J96.20 - Acute and chronic respiratory failure, unspecified whether with hypoxia or hypercapnia Status: Acute Assessment and Plan: Continue bronchodilators, steroids, oxygen (2) Community acquired pneumonia: Code(s): J18.9 - Pneumonia, unspecified organism Status: Acute Assessment and Plan: CONTINUE ROCEPHIN AND ZITHROMAX AWAIT CULTURES (3) Pulmonary cachexia due to COPD: Code(s): J44.9 - Chronic obstructive pulmonary disease, unspecified; R64 - Cachexia Status: Acute Assessment and Plan: Encouraged PO nutrition (4) History of tobacco abuse: Code(s): Z87.891 - Personal history of nicotine dependence Status: Acute Assessment and Plan: PATIENT QUIT SINCE HER LAST ADMISSION IN MARCH OF 2021 NICOTINE PATCH NEEDED Subjective Date/time seen: 07/27/21 10:48 Interval history: 07/27 visit: Denied pain. No SOB at rest while on oxygen. Was given meds at 0900 but forgot and took her own Ativan and atenolol and Stiolto at 1100. Tolerated diet. Appetite fair. Review of Systems Review of Systems: All systems reviewed & are unremarkable except as noted in HPI and below Exam Narrative: HEENT: PERRL, sclerae nonicteric, pharyngeal mucosa pink and intact NECK: No JVD CHEST: Mildly tachypneic, decrease BS throughout HEART: NL S1/S2, regular, no murmur ABDOMEN: BS+, soft, nontender, no mass, no bruits EXTREMITIES: No cyanosis, edema, or clubbing NEUROLOGIC: CN intact and symmetric to inspection. MUSCULOSKELETAL: Tone and strength symmetric. PSYCH: Alert. Oriented to person, place, and time. Objective Data Vital Signs Vital Signs: Vital Signs - 24 hr 07/26/21 17:24 07/26/21 17:40 07/26/21 18:01 Temperature 99.2 F Pulse Rate 123 H Respiratory Rate 30 H 14 Blood Pressure 131/73 Pulse Oximetry 60 L 100 07/26/21 19:38 07/26/21 19:39 07/26/21 20:30 Temperature Pulse Rate 89 92 Respiratory Rate 14 13 18 Blood Pressure 103/67 111/69 Pulse Oximetry 97 97 07/26/21 21:05 07/26/21 22:06 07/26/21 23:50 Temperature Pulse Rate 87 85 Respiratory Rate 15 12 Blood Pressure 108/74 Pulse Oximetry 100 98 07/27/21 00:00 07/27/21 00:20 07/27/21 00:27 Temperature 97.5 F L Pulse Rate 87 98 Respiratory Rate 15 38 H Blood Pressure 171/84 H Pulse Oximetry 100 99 99 07/27/21 01:50 07/27/21 04:00 07/27/21 04:35 Temperature 97.2 F L Pulse Rate 79 56 L 77 Respiratory Rate 29 H Blood Pressure 153/81 H Pulse Oximetry 98 100 07/27/21 04:36 07/27/21 06:00 07/27/21 07:05 Temperature 97.9 F Pulse Rate 77 86 83 Respiratory Rate 20 Blood Pressure 141/73 H Pulse Oximetry 99 07/27/21 09:17 Temperature Pulse Rate 101 H Respiratory Rate Blood Pressure Pulse Oximetry Intake/Output Intake/Output: Intake & Output 07/24/21 07/25/21 07/26/21 07/27/21 23:59 23:59 23:59 23:59 Intake Total 300 Output Total 900 Balance 300 -900 Meds/Results Medications: Active Medications Generic Name Dose Route Start Last Admin Trade Name Freq PRN Reason Stop Dose Admin Hydrocodone Bitart/Acetaminophen 1 tab 07/27/21 00:56 Hydrocodone/Acetaminophen (*Crx) 5-325 Mg Tablet PO BID PRN Pain (Scale Score 4-6) Albuterol 2 puff 07/27/21 04:35 07/27/21 04:36 Albuterol Sulfate (*Sp) Inhaler INHALATION 2 puff Q4-6H PRN Administration Wheezing Albuterol 2 puff 07/27/21 08:00 07/27/21 09:11 Albuterol Sulfate (*Sp) Aerosol 1 Puff INHALATION 2 puff Q6HRT RACHID Administration Atenolol 50 mg 07/27/21 09:00 07/27/21 09:17 Atenolol 50 Mg Tablet PO 50 mg BID RACHID Administration Citalopram Hydrobromide 20 mg 07/27/21 09:00 07/27/21 09:17 Citalopram Hydrobromide 20 Mg Tablet PO 20 mg DAILY [facility] Administrati
--- NOTE | 2021-07-27 12:23 | PC.NURSE ---
Patient reported she took her own home medication of Atenolol that was brought to her by a friend. I removed medication from patient room and educated patient on the seriousness of taking home medication while she is in the hospital and being medicated by staff. Checked patients vitals every 15 minutes and there was no signs of distress, bradycardia or hypotension.
[2021-07-27] MEDS: LORazepam (*CRX) 1 MG TABLET PO (17:05)
--- NOTE | 2021-07-27 17:34 | PC.NURSE ---
Went through patient belongings and put her atenolol in med room with nasal spray and 1 inhaler. I did not find any other medications.
[2021-07-27 18:08] LABS: SARS-CoV-2 RNA PCR Negative
--- NOTE | 2021-07-27 18:20 | PHAR ---
Stiolto Respimat Stiolto Respimat Inhalation [place]: (Olodaterol - Tiotropium [place]) 2.5 MCG/1 Actuation-2.5 MCG/1 Actuation
[2021-07-27] MEDS: QUEtiapine FUMARATE 100 MG TABLET PO (20:45)
[2021-07-28] VITALS (13 sets, daily range): BP systolic 109–140; BP diastolic 59–71; PULSE 51–87; RESP 16–20; TEMP 36.2–36.9; O2SAT 95–99
[2021-07-28] MEDS: methylPREDNISolone SOD SUCC 125 MG VIAL 60 MG IV PUSH (06:17)
[2021-07-28 09:15] LABS: Anion Gap 2 mmol/L (8-16); Blood Urea Nitrogen 29 mg/dL (7-17); Calcium 8.9 mg/dL (8.4-10.2); Carbon Dioxide 38 mmol/L (22-30); Chloride 100 mmol/L (98-107); Estimated CRCL calculation 77 ml/min; Estimated Glomerular Filt Rate > 60; Glucose 133 mg/dL (65-110); Potassium 4.8 mmol/L (3.4-5.0); Sodium 140 mmol/L (137-145)
[2021-07-28] MEDS: ALBUTEROL SULFATE (*SP) AEROSOL 1 PUFF 2 PUFF INHALATION ×3 (10:04→20:28)
[2021-07-28] MEDS: atenoloL 50 MG TABLET PO ×2 (10:04→17:12)
[2021-07-28] MEDS: CITALOPRAM HYDROBROMIDE 20 MG TABLET PO (10:05)
[2021-07-28] MEDS: LORazepam (*CRX) 1 MG TABLET PO ×2 (10:05→17:15)
--- NOTE | 2021-07-28 12:07 | PM.IMPN ---
Progress Note: A&P Assessment and Plan (1) Acute and chronic respiratory failure, unspecified whether with hypoxia or hypercapnia: Code(s): J96.20 - Acute and chronic respiratory failure, unspecified whether with hypoxia or hypercapnia Status: Acute Assessment and Plan: Continue bronchodilators, steroids, oxygen 07/28 AT BASELINE OF 3 LPM BY PR, ADD FLUTTER VALVE, DECREASE STEROIDS, TO MED FLOOR (2) Community acquired pneumonia: Code(s): J18.9 - Pneumonia, unspecified organism Status: Acute Assessment and Plan: CONTINUE ROCEPHIN AND ZITHROMAX BC NEG X 2 (3) Pulmonary cachexia due to COPD: Code(s): J44.9 - Chronic obstructive pulmonary disease, unspecified; R64 - Cachexia Status: Acute Assessment and Plan: Encouraged PO nutrition (4) History of tobacco abuse: Code(s): Z87.891 - Personal history of nicotine dependence Status: Acute Assessment and Plan: PATIENT QUIT SINCE HER LAST ADMISSION IN MARCH OF 2021 NICOTINE PATCH NEEDED Subjective Date/time seen: 07/28/21 12:07 Interval history: 07/28 visit: Denied pain. No SOB at rest while on oxygen. No gi/gu c/o. Tolerated diet. Appetite fair. Review of Systems Review of Systems: All systems reviewed & are unremarkable except as noted in HPI and below Exam Narrative: HEENT: PERRL, sclerae nonicteric, pharyngeal mucosa pink and intact NECK: No JVD CHEST: Mildly tachypneic, COARSE RHONCHI THROUGHOUT HEART: NL S1/S2, regular, no murmur ABDOMEN: BS+, soft, nontender, no mass, no bruits EXTREMITIES: No cyanosis, edema, or clubbing NEUROLOGIC: CN intact and symmetric to inspection. MUSCULOSKELETAL: Tone and strength symmetric. PSYCH: Alert. Oriented to person, place, and time. Objective Data Vital Signs Vital Signs: Vital Signs - 24 hr 07/27/21 13:23 07/27/21 14:00 07/27/21 16:00 Temperature 98.2 F Pulse Rate 83 77 83 Respiratory Rate 20 Blood Pressure 137/78 Pulse Oximetry 100 98 07/27/21 16:50 07/27/21 17:06 07/27/21 17:19 Temperature 97.0 F L Pulse Rate 89 73 Respiratory Rate 24 H Blood Pressure 124/67 Pulse Oximetry 99 98 07/27/21 18:00 07/27/21 20:00 07/27/21 20:48 Temperature 98.6 F Pulse Rate 78 87 Respiratory Rate 18 Blood Pressure 123/74 Pulse Oximetry 96 98 07/27/21 22:00 07/28/21 00:00 07/28/21 02:00 Temperature 97.5 F L Pulse Rate 74 64 57 L Respiratory Rate 20 Blood Pressure 109/59 L Pulse Oximetry 98 07/28/21 04:00 07/28/21 06:00 07/28/21 08:00 Temperature 97.2 F L 98.2 F Pulse Rate 55 L 57 L 51 L Respiratory Rate 19 16 Blood Pressure 122/70 140/67 Pulse Oximetry 99 99 07/28/21 10:04 07/28/21 10:38 Temperature Pulse Rate 83 Respiratory Rate Blood Pressure Pulse Oximetry 96 Intake/Output Intake/Output: Intake & Output 07/25/21 07/26/21 07/27/21 07/28/21 23:59 23:59 23:59 23:59 Intake Total 300 810 220 Output Total 1300 1050 Balance 300 -490 -830 Meds/Results Medications: Active Medications Generic Name Dose Route Start Last Admin Trade Name Freq PRN Reason Stop Dose Admin Hydrocodone Bitart/Acetaminophen 1 tab 07/27/21 00:56 Hydrocodone/Acetaminophen (*Crx) 5-325 Mg Tablet PO BID PRN Pain (Scale Score 4-6) Albuterol 2 puff 07/27/21 04:35 07/27/21 04:36 Albuterol Sulfate (*Sp) Inhaler INHALATION 2 puff Q4-6H PRN Administration Wheezing Albuterol 2 puff 07/27/21 08:00 07/28/21 10:04 Albuterol Sulfate (*Sp) Aerosol 1 Puff INHALATION 2 puff Q6HRT RACHID Administration Atenolol 50 mg 07/27/21 09:00 07/28/21 10:04 Atenolol 50 Mg Tablet PO 50 mg BID RACHID Administration Citalopram Hydrobromide 20 mg 07/27/21 09:00 07/28/21 10:05 Citalopram Hydrobromide 20 Mg Tablet PO 20 mg DAILY RACHID Administration Ceftriaxone Sodium/Dextrose 1 gm in 50 mls @ 100 mls/hr 07/27/21 19:00 07/27/21 17:05 Rocephin 1 Gm/D5w 50 Ml
--- NOTE | 2021-07-28 14:34 | PC.NURSE ---
This patient, Kena Guevara, was transferred to [[facility] ] on 07/28/21 at 1422. Personal belongings sent with patient. Report given to [Elen ]. Appropriate documentation sent with patient.
[2021-07-28] MEDS: QUEtiapine FUMARATE 100 MG TABLET PO (20:12)
[2021-07-29] VITALS (9 sets, daily range): BP systolic 143–151; BP diastolic 86–87; PULSE 67–96; RESP 18; TEMP 35.9–36.9; O2SAT 87–96; BMI 17.5
[2021-07-29] MEDS: ALBUTEROL SULFATE (*SP) AEROSOL 1 PUFF 2 PUFF INHALATION ×3 (02:10→13:11)
[2021-07-29 07:10] LABS: Blood Urea Nitrogen 30 mg/dL (7-17); Carbon Dioxide > 40 mmol/L (22-30); Chloride 99 mmol/L (98-107); Estimated CRCL calculation 60 ml/min; Estimated Glomerular Filt Rate > 60; Glucose 97 mg/dL (65-110); Potassium 4.1 mmol/L (3.4-5.0); Sodium 141 mmol/L (137-145)
[2021-07-29] MEDS: predniSONE 40 MG, predniSONE 10 MG 50 MG PO (08:22)
[2021-07-29] MEDS: CITALOPRAM HYDROBROMIDE 20 MG TABLET PO (08:22)
[2021-07-29] MEDS: atenoloL 50 MG TABLET PO (08:23)
[2021-07-29] MEDS: acetaZOLAMIDE TAB 250 MG TABLET PO (13:09)
--- NOTE | 2021-07-29 14:07 | PCRCNOTE ---
HOME O2 EVAL COMPLETED. PT REQUIRES 1 AT REST AND 3 WITH EXERTION. NO SET UP NEEDED, PT ALREADY HAS HOME O2 AND TRILOGY UNIT AT HOME
--- NOTE | 2021-07-29 14:08 | HOMEO2EVAL ---
Evaluation was performed at [facility] Home Oxygen Evaluation RC: Home Oxygen (O2) Evaluation Start: 07/29/21 10:22 Freq: ONCE Status: Active Protocol: RPE Activity Type Activity Date Activity User E-Sign Co-Sign Detail Recorded Client Recorded Date Recorded By Document 07/29/21 13:30 DENNIS [email or web address] 07/29/21 14:07 DENNIS Document 07/29/21 13:31 DENNIS [email or web address] 07/29/21 14:07 DENNIS Document 07/29/21 13:32 DENNIS [email or web address] 07/29/21 14:07 DENNIS Document 07/29/21 13:33 DENNIS [email or web address] 07/29/21 14:07 DENNIS Document 07/29/21 13:40 DENNIS [email or web address] 07/29/21 14:07 DENNIS 07/29/21 07/29/21 07/29/21 13:30 13:31 13:32 Home O2 Evaluation Test Phase Resting Exercise Exercise Oxygen Delivery Nasal Cannula Nasal Cannula Nasal Cannula Oxygen Flow Rate (L/min) 1 1 2 Pulse Oximetry (90-100 %) 91 87 L 87 L Pulse Rate (60-100 beats/min) 89 Ambulation Distance (feet) Treatment Charges O2 Evaluation - Inpatient 07/29/21 07/29/21 13:33 13:40 Home O2 Evaluation Test Phase Exercise Resting Oxygen Delivery Nasal Cannula Nasal Cannula Oxygen Flow Rate (L/min) 3 1 Pulse Oximetry (90-100 %) 94 92 Pulse Rate (60-100 beats/min) 96 89 Ambulation Distance (feet) 100 Treatment Charges
[2021-07-29] MEDS: LORazepam (*CRX) 1 MG TABLET PO (14:54)
--- NOTE | 2021-07-29 15:55 | PM.DS ---
DS: Admitting Diagnosis Discharge Date 07/29/2021 Admitting Diagnosis shortness of breath DS: Discharge Diagnosis Discharge Diagnosis (1) Acute and chronic respiratory failure, unspecified whether with hypoxia or hypercapnia: Code(s): J96.20 - Acute and chronic respiratory failure, unspecified whether with hypoxia or hypercapnia Status: Acute Assessment and Plan: Continue bronchodilators, steroids, oxygen 07/28 AT BASELINE OF 3 LPM BY TX, ADD FLUTTER VALVE, DECREASE STEROIDS, TO MED FLOOR (2) Community acquired pneumonia: Code(s): J18.9 - Pneumonia, unspecified organism Status: Acute Assessment and Plan: CONTINUE ROCEPHIN AND ZITHROMAX BC NEG X 2 (3) Pulmonary cachexia due to COPD: Code(s): J44.9 - Chronic obstructive pulmonary disease, unspecified; R64 - Cachexia Status: Acute Assessment and Plan: Encouraged PO nutrition (4) History of tobacco abuse: Code(s): Z87.891 - Personal history of nicotine dependence Status: Acute Assessment and Plan: PATIENT QUIT SINCE HER LAST ADMISSION IN MARCH OF 2021 NICOTINE PATCH NEEDED DS: Summary Hospital Course Reason for hospitalization: Chief Complaint: SHORTNESS OF BREATH Narrative: THIS IS A 65-YEAR-OLD FEMALE WITH PAST MEDICAL HISTORY SIGNIFICANT FOR COPD/EMPHYSEMA, TOBACCO DEPENDENCE, CHRONIC HYPERCARBIC HYPOXEMIC RESPIRATORY FAILURE ON 1 L OF OXYGEN AT REST AND 3 L WITH AMBULATION PATIENT HAS RECEIVED HER COVID VACCINATION. PATIENT PRESENTED TODAY TO THE EMERGENCY DUE TO WORSENING SHORTNESS OF BREATH SHE WAS FOUND TO BE SATURATING ON 60% ON 3 L OF OXYGEN BY NASAL CANNULA. AT THE TIME OF MY VISIT PATIENT WAS ON BIPAP AND SHE WAS UNABLE TO GIVE ME ANY HISTORY WHICH HAVE OBTAIN UPON REVIEWING MEDICAL RECORDS FROM OFFICE EMERGENCY ROOM AND HOSPITAL ADMISSIONS. PRELIMINARY WORKUP WAS SIGNIFICANT FOR A CT ANGIO PE PROTOCOL OF THE CHEST WITH INFILTRATES AND SEVERE EMPHYSEMATOUS BULLOUS DISEASE OF THE LUNG, AN ABG SHOWED A PH OF 7.345 WITH A PCO2 69.4 AND A PO2 OF 87. PATIENT HAS BEEN ADMITTED FURTHER EVALUATION AND TREATMENT. Hospital Course: Continue bronchodilators, steroids, oxygen 07/28 AT BASELINE OF 3 LPM BY NC, ADD FLUTTER VALVE, DECREASE STEROIDS, TO MED FLOOR Patient is instructed to stop smoking, patient with chronic respiratory failure on home oxygen and remained on 3 L, patient is clinically stable, patient to follow-up with her primary care as soon as possible, patient is instructed if any symptoms worsen to go to nearest emergency department. Status at Discharge Functional status at discharge: independent ambulation Overall status at discharge: patient is back to baseline Time Spent with Patient Time attestation: Total time spent providing and/or coordinating discharge services: Time spent: Greater than 30 minutes Exam Narrative: clinically stable DS: Data Data Completed and Pending Labs on day of discharge: Labs from last 24 hours 07/29/21 06:24 Sodium 141 Potassium 4.1 Chloride 99 Carbon Dioxide > 40 H Anion Gap BUN 30 H Creatinine 0.70 Estim Creat Clear Calc 60 Estimated GFR > 60 Glucose 97 Calcium 9.0 Preliminary micro results at discharge 07/26/21 18:24 Blood Culture - Preliminary Blood 07/26/21 18:36 Blood Culture - Preliminary Blood Discharge Plan Discharge Attending physician on discharge: Durga Perez Consulting providers: Antoni Tipton ; Nick Appiah ; Raymond Mullins Discharging Clinician: Durga Perez Patient Disposition: Home, Self-Care Activity: as tolerated Diet: heart healthy Discharge Instructions: Patient is instructed to stop smoking, patient with chronic respiratory failure on home oxygen and remained on 3 L, patient is clinically stable, patient to follow-up with her primary care as soon as possible, patient is instructed if any symptoms worsen to go to nearest emergency department. Patient
== END 2021-07-29 16:45 | disposition home or self-care (01) | DRG 193 ==
LOC: ANHED 18:50 → ANHIMU 07-27 00:22 → ANH3MEDSUR 07-29 08:40 → ANHIMU 07-31 15:35
PROVIDERS: Internal Medicine; Admitting Provider Internal Medicine; Emergency Provider General Practice; PCP Family Medicine Adolescent Medicine; Visit Provider Family Medicine
DX: J18.9 Pneumonia, unspecified organism (principal); J96.20 Acute and chronic respiratory failure, unspecified whether with hypoxia or hypercapnia; R64 Cachexia; Z68.1 Body mass index [BMI] 19.9 or less, adult; Z20.822 Contact with and (suspected) exposure to COVID-19; J43.9 Emphysema, unspecified; F41.8 Other specified anxiety disorders; Z87.891 Personal history of nicotine dependence
CPT/HCPCS: 36415; 36600; 71045; 71275; 80048; 80053; 82375; 82805; 83050; 83605; 83735; 83880; 84484; 85025; 85380; 85610; 85730; 87040; 93005; 94002; 94003; 94618; 94640; 94667; 96365; 96367; 96375; 99285; A9270; C9803; J0456; J0696; J2930; J7512; Q9967; U0003; U0005

== ENCOUNTER 2022-04-17 13:07 | Inpatient (IN) | payer OTHER, SELFPAY ==
[2022-04-17] VITALS (38 sets, daily range): BP systolic 124–153; BP diastolic 64–83; PULSE 73–87; RESP 12–32; TEMP 36.1–38.1; O2SAT 91–100; BMI 15.8
--- NOTE | ~2022-04-17 | XR_ITS ---
XR chest 2V 04/17/2022 13:53 Indication: Shortness of breath. Audible crackling. Procedure: 2 view chest Comparison: Comparison to multiple prior studies sequentially, with oldest reviewed study dated 03/2018. Findings: There is focal right lower lobe airspace consolidation. The lungs are hyperinflated which i s consistent with, but not diagnostic of chronic obstructive pulmonary disease. The lungs are mildly hyperinflated, which can be associated with reactive airway disease. Possible small effusion. There i s chronic interstitial lung disease. Impression: 1: Focal right lower lobe airspace consolidation, consistent with pneumonia, superimposed on chronic interstitial fibrosis and emphysema. Reviewed, dictated and finalized at location B. Impression: 1: Focal right lower lobe airspace consolidation, consistent with pneumonia, troncoso perimposed on chronic interstitial fibrosis and emphysema.
--- NOTE | ~2022-04-17 | XR_ITS ---
MODIFIED ESOPHAGRAM HISTORY: Dysphagia. TECHNIQUE: Modified barium esophagram was performed by speech pathologist under radiologist fluorosco pic guidance. This was recorded on tape. The exam was reviewed on 04/19/2022 11:22 CDT. The DAP for this procedure was 1.6 Gycm2. Fluoroscopy time is 3.1 minutes. FINDINGS: Lateral projection of the cervical spine demonstrates normal alignment. There is reduced lingual movement. There is reduced laryngeal elevation, tongue base retraction, pharyngeal squeeze, w ith vallecular residue, pyriform sinus residue and pharyngeal residue. There is laryngeal penetration with thin liquids. No definite aspiration.. IMPRESSION: 1: Laryngeal penetration without aspiration. 2: Please refer to speech pathologist report for additional detail. Reviewed, dictated and finalized at location A.
--- NOTE | ~2022-04-17 | XR_ITS ---
XR chest 2V 04/20/2022 09:39 Indication: Pneumonia follow-up Procedure: AP and lateral views of the chest Comparison: Comparison to multiple prior studies sequentially, with oldest reviewed study dated 03/26. Findings: Heart size normal. There is severe emphysema. There is focal consolidation in the right low er lobe. Small pleural effusions. There is extensive scarring in the upper lobes. Impression: 1: Right lower lobe airspace disease, consistent with pneumonia. 2: Severe emphysema. 3: Small pleural effusions versus pleural thickening. Reviewed, dictated and finalized at location A. Impression: 1: Right lower lobe airspace disease, consistent with pneumonia. 2: Severe emphysema. 3: Small pleural effusions versus pleural thickening.
--- NOTE | 2022-04-17 13:35 | ECG_ITS ---
Measurements Intervals [place] Rate: 75 P: IA: 0 QRS: 68 QRSD: 94 T: 72 QT: 374 QTc: 420 Interpretive Statements NORMAL SINUS RHYTHM COMPARED TO ECG 07/26/2021 17:36:18 THE HEART RATE IS SLOWER Electronically Signed On 04-17-2022 20:39:59 CDT by Shaneka Oconnor M.D.
--- NOTE | 2022-04-17 13:42 | PC.NURSE ---
Patient off unit to radiology for CXR.
--- NOTE | 2022-04-17 13:52 | PC.NURSE ---
Dr. Freedman at bedside to assess pt.
[2022-04-17 13:55] LABS: Alanine Aminotransferase 13 U/L (6-35); Albumin Level 3.7 g/dL (3.5-5.1); Alkaline Phosphatase 68 U/L (38-126); Aspartate Amino Transferase 21 U/L (14-36); Bilirubin,Total 0.8 mg/dL (0.2-1.3); Blood Urea Nitrogen 29 mg/dL (7-17); Calcium 9.2 mg/dL (8.4-10.2); Carbon Dioxide > 40 mmol/L (22-30); Chloride 93 mmol/L (98-107); Estimated CRCL calculation 79 ml/min; Estimated Glomerular Filt Rate > 60; Glucose 122 mg/dL (65-110); Potassium 4.4 mmol/L (3.4-5.0); Sodium 141 mmol/L (137-145)
--- NOTE | 2022-04-17 14:14 | PC.NURSE ---
RT at bedside to obtain ABG.
[2022-04-17 14:18] LABS: Alveolar/Arterial O2 Gradient 85.7 mmHg; Carboxyhemoglobin 0.8 % THb (0-2.0); Fractional Inspired Oxygen 32 %; HCO3 ABG 44.8 mEq/l (22.0-26.0); Methemoglobin ABG 0.2 %THb (0-1.5); Oxygen Content ABG 16.6 %vol (16.0-22.0); Oxygen Saturation ABG 95.4 % (95.0-100.0); Oxyhemoglobin 94.5 % THb (90.0-100.0); PO2 ABG 87.4 mmHg (80.0-100.0); PO2 FiO2 Ratio Arterial Blood 2.73 %; Reduced Hemoglobin 4.5 %THb (0-5.0); Total Hemoglobin 12.4 g/dL (12.0-18.0); pH ABG 7.326 (7.350-7.450)
[2022-04-17 14:19] LABS: Device NASAL CANNULA; Modified Allen's Test Pass; PCO2 ABG 87.8 mmHg (35.0-45.0); Site Drawn RIGHT RADIAL
--- NOTE | 2022-04-17 14:27 | PC.NURSE ---
RT at bedside to place patient on bipap.
--- NOTE | 2022-04-17 14:39 | ED.SOB ---
HPI - SOB/Dyspnea General Chief Complaint: Shortness of Breath/Dyspnea Stated Complaint: SOB Time Seen by Provider: 04/17/22 13:47 History of Present Illness HPI Narrative: Patient is a 66-year-old female who presents to the ER with shortness of breath and cough. Patient was disconnected from her oxygen at home as can be satting in the mid 80s. Patient wears 3 L. She does have emphysema. She reports 2 days ago she began to develop a wet cough and gurgling breath sounds. Denies fevers or chills or sweats. She does endorse weakness. Patient seems a bit flat and fatigued during history. Related Data Home Medications Medication Instructions Recorded Confirmed quetiapine 50 mg tablet 100 mg PO HS 07/27/21 09/18/21 Allergies Allergy/AdvReac Type Severity Reaction Status Date / Time moxifloxacin Allergy Mild RASH Verified 04/17/22 13:25 Penicillins Allergy Mild RASH Verified 04/17/22 13:25 Review of Systems Review of Systems: All systems reviewed & are unremarkable except as noted in HPI and below Constitutional: Constitutional: Denies chills, Reports fatigue and Denies fever(s) ENT: Denies nasal congestion and Denies sore throat Cardiovascular: Cardiovascular: Denies chest pain, Denies rapid heart rate and Denies radiating jaw, neck or arm pain Respiratory: Respiratory: Reports chest congestion, Reports cough and Reports dyspnea Gastrointestinal: Gastrointestinal: Denies abdominal pain, Denies nausea and Denies vomiting Neurologic: Denies headache(s) and Denies focal weakness PMFSH Past Medical History Medical History (Updated 04/17/22 @ 16:38 by Durga Freedman MD) Acute respiratory failure with hypoxia and hypercarbia Chronic respiratory failure with hypoxia and hypercapnia Community acquired pneumonia COPD with emphysema Depression with anxiety Normal colonoscopy 06/28 Tobacco abuse Surgical History Surgical History History of orthopedic surgery ORIF right ankle fracture. Right wrist surgery. Right shoulder arthroscopy. Family History Family History Father Diabetes mellitus Sibling Diabetes mellitus Mother Hypertension Social History Social History Social History: The patient lives in her own home in [place] with her cat and dog. She has no children. She has smoked 1 pack of cigarettes per day for the last 50 years or so. 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 She designates her friend Muna Delong as her surrogate decision maker and she wishes to be a full code. Smoking packs per day: 0.5 Smoking cigarettes per day: 10.0 Years smoked: 50 Smoking pack-years: 25.00 Smoking status: Current every day smoker Tobacco type: cigarettes Substance use: never Spiritual care concerns: No Exam Narrative: GENERAL: Chronically ill-appearing, underweight, and in no acute distress. HEAD: Normocephalic, atraumatic. EYES: PERRL and EOMI. ENT: Mucous membranes moist. CHEST: Basilar rales on the right, otherwise clear to auscultation. No respiratory distress. HEART: Regular rate and rhythm. Normal peripheral pulses. ABDOMEN: Soft, nontender, nondistended. EXTREMITIES: Normal range of motion. No edema. SKIN: Warm, dry, no rash. NEURO: Alert and oriented x3. Course Course Emergency Course: Admit to hospitalist service. Hypercapnia improving with BiPAP. Antibiotics ordered for pneumonia. Vital Signs Vital signs: Vital Signs Pulse Rate 85 04/17/22 13:11 Respiratory Rate 17 04/17/22 13:11 Blood Pressure 137/80 04/17/22 13:11 Pulse Oximetry 96 04/17/22 13:11 Oxygen Delivery Nasal Cannula 04/17/22 13:11 Oxygen Flow Rate 3 04/17/22 13:11 Pulse Rate 79 04/17/22 16:01 Respiratory Rate 22 H 04/17/22 16:09 Blood Pressur
[2022-04-17 15:14] LABS: SARS-CoV-2 RNA PCR Negative
[2022-04-17 16:01] LABS: Basophils Percent Auto 0.2 % (0.2-1.2); Hematocrit 37.6 % (37.0-47.0); Hemoglobin 11.4 g/dL (12.0-15.0); Immature Granulocyte Absolute 0.04 K/mm3 (0.00-0.031); Immature Granulocyte Percent A 0.3 % (0-0.5); Lymphocytes Absolute Auto 0.35 K/mm3 (0.9-3.2); Lymphocytes Percent Auto 2.9 % (18.3-44.2); Mean Corpuscular HGB Conc 30.3 g/dl (32-36); Mean Corpuscular Hemoglobin 31.8 pg (26-34); Mean Corpuscular Volume 104.7 fl (80-100); Mean Platelet Volume 9.4 fl (7.4-10.4); Monocytes Absolute Auto 1.1 K/mm3 (0.1-0.6); Monocytes Percent Auto 9.1 % (2.6-8.5); Neutrophils Absolute Auto 10.7 K/mm3 (1.3-6.7); Neutrophils Percent Auto 87.5 % (45.5-73.1); Platelet Count Result 184 k/mm3 (150-375); Red Blood Count 3.59 M/mm3 (4.2-5.4); Red Cell Distribution Width 13.1 % (11.5-14.5); White Blood Count 12.2 K/mm3 (4.5-10.0)
[2022-04-17 16:04] LABS: Alveolar/Arterial O2 Gradient 108.2 mmHg; Base Excess ABG 15.9 mEq/l (+/-2.0); Carboxyhemoglobin 0.6 % THb (0-2.0); Fractional Inspired Oxygen 40 %; HCO3 ABG 44.6 mEq/l (22.0-26.0); Methemoglobin ABG 0.2 %THb (0-1.5); Oxygen Content ABG 16.6 %vol (16.0-22.0); Oxygen Saturation ABG 96.1 % (95.0-100.0); Oxyhemoglobin 95.4 % THb (90.0-100.0); PO2 ABG 88.1 mmHg (80.0-100.0); Reduced Hemoglobin 3.8 %THb (0-5.0); Total Hemoglobin 12.3 g/dL (12.0-18.0); pH ABG 7.379 (7.350-7.450)
[2022-04-17 16:06] LABS: Device BIPAP; Expiratory Pressure 6 cmH2O; Inspiratory Pressure 16 cmH2O; Modified Allen's Test Pass; PCO2 ABG 77.3 mmHg (35.0-45.0); Site Drawn RIGHT RADIAL
[2022-04-17 16:25] LABS: NT Pro B Type Natriuretic Pept 1960 pg/mL (5-100)
--- NOTE | 2022-04-17 17:18 | ADMGEN ---
This patient, Kena Guevara, was admitted to IMU Room 214-01. Patient/family oriented to hospital policies and general routines including ID bracelet, bed and alarms, visiting hours, pain management, procedures, bathroom and other care routines, personal items, smoking policy, room service/diet, and visiting hours. Information on how to activate the Rapid Response Team has been discussed. Patient/Family are encouraged to report perceived risks to care and to ask questions if they do not understand what they are told or what they should do.
--- NOTE | 2022-04-17 18:13 | PM.IMHP ---
H&P: HPI History of Present Illness Date/Time: 04/17/22 18:13 Chief Complaint: Shortness of Breath Narrative: 66yo female with hx of COPD, chronic respiratory failure and ongoing tobacco use here for shortness of breath. Patient developed a cough about 2-3 days ago productive greenish sputum. No fever or chills. No chest pain or palpitations. No pleuritic chest pain. No nausea or vomiting. She does complain of dysphagia. She has been wheezing. She uses her nebulizer treatments 3 times a day on average. She has not been on prednisone recently. She states she cannot tolerate prednisone but does tolerate inhaled steroids without problem. She has not been on antibiotics recently. No recent hospitalizations. She continues to smoke half a pack a day. She is on oxygen 3.5 L at rest and 5 L with activity. It is unclear if she wears BiPAP at home. She has poor oral intake with poor appetite. She has had weight loss. She has complaints of abdominal pain related to constipation. The abdominal pain improved after bowel movement. She has stool 2 to 3 times a week but no melena or hematochezia. She had a normal colonoscopy in June 2020. The remainder of the ROS was unremarkable. She developed shortness of breath yesterday morning that had progressively worsened. Symptoms worsened today to the point where she called EMS. EMS was contacted. SpO2 was 80% and was on 6L but it was discovered that the nasal cannula was not connected to the in-home oxygen but to a portal machine that was not turned on. Unclear how long patient has been without oxygen. Patient was placed on 4 L with SpO2 increasing to the low 90s. She was brought emergency room for evaluation. In the emergency room, patient was hemodynamically stable. Chest x-ray showed a focal right lower lobe airspace consolidation consistent with pneumonia superimposed on chronic interstitial fibrosis and emphysema. White count was 12K with left shift. ABG 7.33/88/87 on 3 L. she was placed on BiPAP with improvement of her pH and pCO2. Serum bicarb was greater than 40 and BNP was 1960. COVID swab was negative. EKG showed normal sinus rhythm that converted to a supraventricular rhythm. QS pattern in V1 and V2 possibly old septal VA and old when compares to prior EKGs. patient was treated with Rocephin and azithromycin. She was admitted for further care. Review of Systems Review of Systems: All systems reviewed & are unremarkable except as noted in HPI and below PMFSH Past Medical History Medical History (Updated 04/17/22 @ 18:18 by Adriano Dunne MD) Chronic respiratory failure with hypoxia and hypercapnia Community acquired pneumonia COPD with emphysema Depression with anxiety Normal colonoscopy 06/28 Tobacco abuse Surgical History Surgical History History of orthopedic surgery ORIF right ankle fracture. Right wrist surgery. Right shoulder arthroscopy. Family History Family History Father Diabetes mellitus Sibling Diabetes mellitus Mother Hypertension Social History Social History (Updated 04/17/22 @ 18:55 by Adriano Dunne MD) Social History: The patient lives alone. She has no children. She has smoked 1 pack of cigarettes per day for the last 50 years or so but down to 1/2 ppd now. Recovering alcoholic, sober for 13 years. No hx of drug use or IVDU. 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 She designates her friend Muna Delong as her surrogate decision maker and she wishes to be a DNR Smoking packs per day: 0.5 Smoking cigarettes per day: 10.0 Years smoked: 15 Smoking pack-years: 7.50 Smoking status: Current every day smoker Tobacco type: cigarettes Substance use: never Spiritual care concerns: No Meds Home Medications and Allergies Home Medications Medication Instructio
[2022-04-17] MEDS: IPRATROPIUM BR 0.02% INH SOLN 0.5 MG/2.5 ML VIAL INHALATION (20:17)
[2022-04-17] MEDS: ALBUTEROL SULFATE NEB 2.5 MG/3 ML INH INHALATION (20:17)
[2022-04-17] MEDS: QUEtiapine FUMARATE 100 MG TABLET PO (20:24)
[2022-04-17] MEDS: atenoloL 25 MG TABLET PO (20:26)
[2022-04-17] MEDS: LORazepam (*CRX) 1 MG TABLET PO (23:22)
[2022-04-17] MEDS: ACETAMINOPHEN 325 MG TABLET 650 MG PO (23:23)
[2022-04-18] VITALS (24 sets, daily range): BP systolic 111–149; BP diastolic 58–88; PULSE 69–92; RESP 16–39; TEMP 36.6–37.9; O2SAT 95–100; BMI 15.9
[2022-04-18] MEDS: ALBUTEROL SULFATE NEB 2.5 MG/3 ML INH INHALATION ×2 (03:00→22:19)
[2022-04-18] MEDS: IPRATROPIUM BR 0.02% INH SOLN 0.5 MG/2.5 ML VIAL INHALATION ×4 (03:00→22:19)
[2022-04-18 05:09] LABS: Basophils Percent Auto 0.3 % (0.2-1.2); Eosinophils Percent Auto 0.2 % (0-4.4); Hematocrit 35.1 % (37.0-47.0); Hemoglobin 10.4 g/dL (12.0-15.0); Immature Granulocyte Absolute 0.05 K/mm3 (0.00-0.031); Immature Granulocyte Percent A 0.5 % (0-0.5); Lymphocytes Percent Auto 5.2 % (18.3-44.2); Mean Corpuscular HGB Conc 29.6 g/dl (32-36); Mean Corpuscular Volume 104.8 fl (80-100); Mean Platelet Volume 9.3 fl (7.4-10.4); Monocytes Absolute Auto 1.1 K/mm3 (0.1-0.6); Neutrophils Absolute Auto 7.9 K/mm3 (1.3-6.7); Neutrophils Percent Auto 82.8 % (45.5-73.1); Platelet Count Result 158 k/mm3 (150-375); Red Blood Count 3.35 M/mm3 (4.2-5.4); Red Cell Distribution Width 13.4 % (11.5-14.5); White Blood Count 9.6 K/mm3 (4.5-10.0)
[2022-04-18 05:20] LABS: Blood Urea Nitrogen 30 mg/dL (7-17); Calcium 8.8 mg/dL (8.4-10.2); Carbon Dioxide > 40 mmol/L (22-30); Chloride 92 mmol/L (98-107); Estimated CRCL calculation 62 ml/min; Estimated Glomerular Filt Rate > 60; Glucose 94 mg/dL (65-110); Magnesium 2.1 mg/dL (1.6-2.3); Phosphorus 3.2 mg/dL (2.5-4.5); Potassium 4.2 mmol/L (3.4-5.0); Sodium 138 mmol/L (137-145)
[2022-04-18 05:33] LABS: Alveolar/Arterial O2 Gradient 103.6 mmHg; Base Excess ABG 16.1 mEq/l (+/-2.0); Fractional Inspired Oxygen 40 %; HCO3 ABG 44.4 mEq/l (22.0-26.0); Oxygen Content ABG 15.4 %vol (16.0-22.0); Oxygen Saturation ABG 96.7 % (95.0-100.0); Oxyhemoglobin 95.5 % THb (90.0-100.0); PO2 ABG 93.6 mmHg (80.0-100.0); PO2 FiO2 Ratio Arterial Blood 2.34 %; Total Hemoglobin 11.4 g/dL (12.0-18.0); pH ABG 7.382 (7.350-7.450)
[2022-04-18 05:35] LABS: Device NON-INVASIVE VENT; Modified Allen's Test Pass; PCO2 ABG 76.5 mmHg (35.0-45.0); Site Drawn RIGHT RADIAL
[2022-04-18 05:36] LABS: Non-Invasive Expiratory Pressure 6 CMH2O; Non-Invasive Inspiratory Pressure 12 CMH2O; Non-Invasive Vent Rate 20 /MIN
[2022-04-18] MEDS: LORazepam (*CRX) 1 MG TABLET PO ×4 (07:01→21:50)
[2022-04-18] MEDS: BUDESONIDE RESPULE NEB 0.5 MG/2 ML AMP INHALATION (07:38)
[2022-04-18] MEDS: ALBUTEROL SULFATE NEB 2.5 MG/0.5 ML INH ×2 (07:39→14:07)
[2022-04-18] MEDS: atenoloL 25 MG TABLET PO ×2 (08:08→21:15)
[2022-04-18] MEDS: CITALOPRAM HYDROBROMIDE 20 MG TABLET 40 MG PO (08:08)
[2022-04-18 10:59] LABS: Folic Acid 9.7 ng/mL (2.76->20)
--- NOTE | 2022-04-18 11:46 | PCSTNOTE ---
Please refer to the Bedside Swallow Evaluation in the EMR. Please note, silent aspiration cannot be ruled out at bedside.
--- NOTE | 2022-04-18 14:36 | PCPTNOTE ---
pt refused PT evaluation 1430- stated SOB and tired; unable to convince her to participate in PT eval.
--- NOTE | 2022-04-18 16:12 | PM.IMPN ---
Progress Note: A&P Assessment and Plan (1) Acute respiratory failure with hypoxia and hypercarbia: Code(s): J96.01 - Acute respiratory failure with hypoxia; J96.02 - Acute respiratory failure with hypercapnia Status: Acute (2) Pneumonia: Code(s): J18.9 - Pneumonia, unspecified organism Status: Acute (3) Chronic respiratory failure with hypoxia and hypercapnia: Code(s): J96.11 - Chronic respiratory failure with hypoxia; J96.12 - Chronic respiratory failure with hypercapnia Status: Acute (4) COPD with emphysema: Code(s): J43.9 - Emphysema, unspecified Status: Acute (5) Tobacco abuse: Code(s): Z72.0 - Tobacco use Status: Acute (6) Alcohol dependence, in remission: Code(s): F10.21 - Alcohol dependence, in remission Status: Acute (7) Pulmonary cachexia due to COPD: Code(s): J44.9 - Chronic obstructive pulmonary disease, unspecified; R64 - Cachexia Status: Acute Plan Patient has been admitted to IMU on BiPAP. Suspect her acute respiratory failure related to pneumonia made worse by mechanical failure by her not being attached to oxygen at home. She has been started on Rocephin azithromycin. Fever curve has improved. White count has normalized. Blood cultures are no growth today. She wore the BiPAP overnight and ABG this morning better at 7.38/76/94. Continue antibiotics. No wheezing so will continue to hold off on steroids. She does complain of dysphagia and speech did see her and recommended MBS which has been ordered. Continue nebulizer treatments. Continue PT/OT. She has been educated about the benefits of smoking cessation. Given her cachectic state and severe COPD and that she is mildly confusion, will speak with her friend about hospice (no answer at phone numbers of niece or friend). DVT prophylaxis: heparin Code status: DNR Subjective Date/time seen: 04/18/22 16:12 Interval history: 66yo female with hx of COPD, chronic respiratory failure and ongoing tobacco use here for respiratory failure. Patient is alert and oriented but is mildly confused at times. She takes off her oxygen for unclear reasons. When getting up to the bedside commode she took off her oxygen and her SpO2 dropped to the 40s. She denies any chest pain. She feels overall her shortness of breath is better. She has been eating okay. Exam Narrative: Tm 100.6 97.8 142/88 91 27 97% bipap Gen - thin, chronically ill appearing female in no acute respiratory distress sittin ly the bed side commode Chest - Distant breath sounds. CV - RRR. S1-S2. Tele showing no significant dysrhythmias. Abd -soft. Scaphoid. Positive bowel sounds Ext - no pedal edema. Diffuse muscle wasting Neuro - patient is alert and oriented x4 but has some difficulty providing hx Psych - normal mood and affect. Skin - warm and dry. No supraclav fat pad. Scant adipose tissue Objective Data Vital Signs Vital Signs: Vital Signs - 24 hr 04/17/22 16:15 04/17/22 17:41 04/17/22 17:32 Temperature 97 F L Pulse Rate 86 Respiratory Rate 32 H Blood Pressure 148/76 H Pulse Oximetry 100 100 Oxygen Delivery BiPAP Oxygen Flow Rate Fraction of Inspired Oxygen 40 04/17/22 18:00 04/17/22 20:20 04/17/22 20:21 Temperature Pulse Rate 77 82 82 Respiratory Rate 22 H 22 H Blood Pressure Pulse Oximetry 99 Oxygen Delivery BiPAP Oxygen Flow Rate Fraction of Inspired Oxygen 04/17/22 20:23 04/17/22 20:34 04/17/22 20:26 Temperature Pulse Rate 87 86 Respiratory Rate 25 H Blood Pressure Pulse Oximetry 99 Oxygen Delivery BiPAP Oxygen Flow Rate Fraction of Inspired Oxygen 40 04/17/22 20:00 04/18/22 00:00 04/17/22 20:00 Temperature 100.6 F H 100.2 F H Pulse Rate 85 80 83 Respiratory Rate 23 H 34 H Blood Pressure 153/78 H 111/58 L Pulse Oximetry 100 100 Oxygen Delivery Oxygen Flow Rate Fraction of Inspired Oxyge
[2022-04-18] MEDS: QUEtiapine FUMARATE 100 MG TABLET PO (21:15)
[2022-04-18] MEDS: ACETAMINOPHEN 325 MG TABLET 650 MG PO (21:50)
[2022-04-19] VITALS (32 sets, daily range): BP systolic 82–139; BP diastolic 49–80; PULSE 66–98; RESP 20–37; TEMP 36.1–37.1; O2SAT 97–100
[2022-04-19] MEDS: IPRATROPIUM BR 0.02% INH SOLN 0.5 MG/2.5 ML VIAL INHALATION ×4 (03:26→21:27)
[2022-04-19] MEDS: ALBUTEROL SULFATE NEB 2.5 MG/3 ML INH INHALATION ×4 (03:27→21:27)
[2022-04-19 06:03] LABS: Blood Urea Nitrogen 27 mg/dL (7-17); Calcium 8.8 mg/dL (8.4-10.2); Carbon Dioxide > 40 mmol/L (22-30); Chloride 91 mmol/L (98-107); Estimated CRCL calculation 63 ml/min; Estimated Glomerular Filt Rate > 60; Glucose 100 mg/dL (65-110); Potassium 3.9 mmol/L (3.4-5.0); Sodium 139 mmol/L (137-145)
[2022-04-19] MEDS: BUDESONIDE RESPULE NEB 0.5 MG/2 ML AMP INHALATION (08:28)
--- NOTE | 2022-04-19 08:44 | PCPTNOTE ---
Hold today per RN William, pt desating into 40s without bipap.
[2022-04-19] MEDS: CITALOPRAM HYDROBROMIDE 20 MG TABLET 40 MG PO (09:48)
[2022-04-19] MEDS: atenoloL 25 MG TABLET PO ×2 (09:48→21:07)
[2022-04-19] MEDS: LORazepam (*CRX) 1 MG TABLET PO ×2 (09:51→21:10)
--- NOTE | 2022-04-19 09:53 | PCOTNOTE ---
Hold today for therapy per RN William, pt desating into 40s without bipap.
--- NOTE | 2022-04-19 10:47 | PM.IMPN ---
Progress Note: A&P Assessment and Plan (1) Acute respiratory failure with hypoxia and hypercarbia: Code(s): J96.01 - Acute respiratory failure with hypoxia; J96.02 - Acute respiratory failure with hypercapnia Status: Acute (2) Pneumonia: Code(s): J18.9 - Pneumonia, unspecified organism Status: Acute (3) Chronic respiratory failure with hypoxia and hypercapnia: Code(s): J96.11 - Chronic respiratory failure with hypoxia; J96.12 - Chronic respiratory failure with hypercapnia Status: Acute (4) COPD with emphysema: Code(s): J43.9 - Emphysema, unspecified Status: Acute (5) Tobacco abuse: Code(s): Z72.0 - Tobacco use Status: Acute (6) Alcohol dependence, in remission: Code(s): F10.21 - Alcohol dependence, in remission Status: Acute (7) Pulmonary cachexia due to COPD: Code(s): J44.9 - Chronic obstructive pulmonary disease, unspecified; R64 - Cachexia Status: Acute Plan Patient has been admitted to IMU on BiPAP. Suspect her acute respiratory failure related to pneumonia made worse by mechanical failure by her not being attached to oxygen at home. She has been started on Rocephin and azithromycin. Fever curve has improved. White count has normalized. Blood cultures are no growth today. Green sputum but not able to collect yet. She wore the BiPAP overnight. Patient doing well at current settings. She has BiPAP at home and would like to get the BiPAP settings. Continue antibiotics. No wheezing so will continue to hold off on steroids. She does complain of dysphagia and MBS has been ordered. Continue nebulizer treatments. Repeat CXR in the morning. Continue PT/OT. She has been educated about the benefits of smoking cessation. Given her cachectic state and severe COPD, I did speak with her about hospice but she would like to think about it. She agrees to allow me to talk with her niece. No answer at niece's phone number and mailbox is full. DVT prophylaxis: heparin Code status: DNR Subjective Date/time seen: 04/19/22 10:47 Interval history: 66yo female with hx of COPD, chronic respiratory failure and ongoing tobacco use here for respiratory failure. Patient is more alert today. She feels better. Cough productive light green sputum. Eating okay. She did with the mass last night. She does state that she has BiPAP at home but does not wear this because the mask does not fit well. Exam Narrative: AF 97.1 107/54 81 25 98% NC Gen - thin, chronically ill appearing female with mild conversational dyspnea lying semi-recumbent in bed HEENT - bandaid covering the bridge of the nose Chest - very distant breath sounds. Weak and wet cough CV - RRR. S1-S2. Tele showing one brief episode of probable MAT Abd -soft. Scaphoid. Positive bowel sounds Ext - no pedal edema. Diffuse muscle wasting Neuro - patient is alert and oriented x4 and is more appropriate. Psych - normal mood and affect. Skin - warm and dry. Scant adipose tissue Objective Data Vital Signs Vital Signs: Vital Signs - 24 hr 04/18/22 12:00 04/18/22 12:00 04/18/22 12:00 Temperature 97.8 F Pulse Rate 86 90 90 Respiratory Rate 16 16 Blood Pressure 142/88 H Pulse Oximetry 98 98 Oxygen Delivery Nasal Cannula Oxygen Flow Rate 4 Fraction of Inspired Oxygen 04/18/22 14:07 04/18/22 14:07 04/18/22 14:00 Temperature Pulse Rate 91 91 85 Respiratory Rate 27 H 27 H Blood Pressure Pulse Oximetry 97 Oxygen Delivery BiPAP Oxygen Flow Rate Fraction of Inspired Oxygen 04/18/22 16:00 04/18/22 16:00 04/18/22 16:00 Temperature 99.1 F Pulse Rate 91 87 88 Respiratory Rate 27 H 32 H Blood Pressure 149/78 H Pulse Oximetry 97 98 Oxygen Delivery BiPAP Oxygen Flow Rate Fraction of Inspired Oxygen 30 04/18/22 18:00 04/18/22 20:00 04/18/22 21:15 Temperature 98.4 F Pulse Rate 90 92 84 Respiratory Rate 29 H Blood Pressure 14
--- NOTE | 2022-04-19 13:29 | PCSTNOTE ---
Please refer to the Modified Barium Swallow Evaluation in the EMR.
[2022-04-19] MEDS: polyethylene glycoL 3350 17 GM POWD.PACK PO (16:39)
[2022-04-19] MEDS: QUEtiapine FUMARATE 100 MG TABLET PO (21:07)
[2022-04-19] MEDS: ACETAMINOPHEN 325 MG TABLET 650 MG PO (21:10)
[2022-04-20] VITALS (25 sets, daily range): BP systolic 93–134; BP diastolic 53–79; PULSE 70–87; RESP 16–28; TEMP 36.4–37; O2SAT 92–99
[2022-04-20] MEDS: IPRATROPIUM BR 0.02% INH SOLN 0.5 MG/2.5 ML VIAL INHALATION ×3 (02:00→19:35)
[2022-04-20] MEDS: ALBUTEROL SULFATE NEB 2.5 MG/3 ML INH INHALATION (02:00)
[2022-04-20 05:19] LABS: Hematocrit 32.9 % (37.0-47.0); Hemoglobin 9.9 g/dL (12.0-15.0); Mean Corpuscular HGB Conc 30.1 g/dl (32-36); Mean Corpuscular Hemoglobin 30.8 pg (26-34); Mean Corpuscular Volume 102.5 fl (80-100); Mean Platelet Volume 9.3 fl (7.4-10.4); Platelet Count Result 155 k/mm3 (150-375); Red Blood Count 3.21 M/mm3 (4.2-5.4); Red Cell Distribution Width 13.4 % (11.5-14.5); White Blood Count 7.7 K/mm3 (4.5-10.0)
[2022-04-20 05:36] LABS: Blood Urea Nitrogen 23 mg/dL (7-17); Calcium 8.6 mg/dL (8.4-10.2); Carbon Dioxide > 40 mmol/L (22-30); Chloride 92 mmol/L (98-107); Estimated CRCL calculation 77 ml/min; Estimated Glomerular Filt Rate > 60; Glucose 92 mg/dL (65-110); Potassium 3.9 mmol/L (3.4-5.0); Sodium 139 mmol/L (137-145)
[2022-04-20] MEDS: ALBUTEROL SULFATE NEB 2.5 MG/0.5 ML INH ×2 (09:10→19:35)
[2022-04-20] MEDS: BUDESONIDE RESPULE NEB 0.5 MG/2 ML AMP INHALATION (09:10)
[2022-04-20] MEDS: atenoloL 25 MG TABLET PO ×2 (11:34→20:50)
[2022-04-20] MEDS: CITALOPRAM HYDROBROMIDE 20 MG TABLET 40 MG PO (11:34)
[2022-04-20] MEDS: LORazepam (*CRX) 1 MG TABLET PO (11:34)
--- NOTE | 2022-04-20 12:16 | PM.IMPN ---
Progress Note: A&P Assessment and Plan (1) Acute respiratory failure with hypoxia and hypercarbia: Code(s): J96.01 - Acute respiratory failure with hypoxia; J96.02 - Acute respiratory failure with hypercapnia Status: Acute (2) Pneumonia: Code(s): J18.9 - Pneumonia, unspecified organism Status: Acute (3) Chronic respiratory failure with hypoxia and hypercapnia: Code(s): J96.11 - Chronic respiratory failure with hypoxia; J96.12 - Chronic respiratory failure with hypercapnia Status: Acute (4) COPD with emphysema: Code(s): J43.9 - Emphysema, unspecified Status: Acute (5) Tobacco abuse: Code(s): Z72.0 - Tobacco use Status: Acute (6) Alcohol dependence, in remission: Code(s): F10.21 - Alcohol dependence, in remission Status: Acute (7) Pulmonary cachexia due to COPD: Code(s): J44.9 - Chronic obstructive pulmonary disease, unspecified; R64 - Cachexia Status: Acute Plan Patient was admitted to IMU on BiPAP. Suspect her acute respiratory failure related to pneumonia made worse by mechanical failure by her not being attached to oxygen at home. She was started on Rocephin and azithromycin. Fever curve has improved. White count has normalized. Blood cultures are no growth today. Sputum culture pending. Repeat CXR showing RLL airspace disease. She wore the BiPAP overnight and doing well with current settings. She has BiPAP at home and would like to get the BiPAP settings. She has been weaned to 5L NC now (wears 3.5L at home). Continue antibiotics. No wheezing so will continue to hold off on steroids. She did complain of dysphagia and MBS was performed and Speech recommended mildly thickened liquids which was started. Change to Regular diet. Given her cachectic state and severe COPD, I did speak with her about hospice but she is not interested. Continue nebulizer treatments. Continue PT/OT. She has been educated about the benefits of smoking cessation. Add Mucinex and Pulmozyme to try to thin secretions. CPT. DVT prophylaxis: heparin Code status: DNR Subjective Date/time seen: 04/20/22 12:16 Interval history: 66yo female with hx of COPD, chronic respiratory failure and ongoing tobacco use here for respiratory failure. Patient slept okay. Shortness of breath is better. She denies any chest pain. Cough is nonproductive. Voiding well. Eating better Exam Narrative: AF 97.5 127/66 83 20 95% 5L Gen - thin, chronically ill appearing female NARD HEENT - bandaid covering the bridge of the nose Chest -bibasilar inspiratory crackles otherwise distant breath sounds. Wet and weak cough. CV - RRR. S1-S2. Tele showing one episode of probable MAT Abd -soft. Scaphoid. Mild suprapubic pain but she needs to void. Positive bowel sounds Ext - no pedal edema. Diffuse muscle wasting Psych - normal mood and affect. Speech is clearer Skin - warm and dry. Scant adipose tissue Objective Data Vital Signs Vital Signs: Vital Signs - 24 hr 04/19/22 14:00 04/19/22 14:33 04/19/22 14:34 Temperature Pulse Rate 90 87 80 Respiratory Rate 22 H 22 H Blood Pressure Pulse Oximetry 98 Oxygen Delivery BiPAP Oxygen Flow Rate Fraction of Inspired Oxygen 04/19/22 14:45 04/19/22 15:35 04/19/22 16:00 Temperature 98.4 F Pulse Rate 82 83 Respiratory Rate 22 H 24 H Blood Pressure 114/64 Pulse Oximetry 99 100 Oxygen Delivery BiPAP Oxygen Flow Rate Fraction of Inspired Oxygen 30 04/19/22 16:00 04/19/22 16:00 04/19/22 18:00 Temperature Pulse Rate 82 82 91 Respiratory Rate 24 H Blood Pressure Pulse Oximetry 100 Oxygen Delivery BiPAP Oxygen Flow Rate Fraction of Inspired Oxygen 30 04/19/22 20:00 04/19/22 21:07 04/19/22 21:22 Temperature 98.7 F Pulse Rate 88 86 78 Respiratory Rate 22 H 20 Blood Pressure 139/80 Pulse Oximetry 100 Oxygen Delivery Oxygen Flow Rate Fraction of Inspir
[2022-04-20] MEDS: HEPARIN SODIUM 5,000 UNITS/ML VIAL 5000 UNITS SUB-Q ×2 (14:34→20:49)
[2022-04-20] MEDS: DORNASE ALFA INH SOLN 1 MG/ML 2.5 ML AMP 2.5 MG INHALATION (19:35)
[2022-04-20] MEDS: QUEtiapine FUMARATE 100 MG TABLET PO (20:49)
[2022-04-20] MEDS: guaiFENesin 12 HR 600 MG TABCR PO (20:49)
[2022-04-21] VITALS (25 sets, daily range): BP systolic 127–151; BP diastolic 66–83; PULSE 69–85; RESP 16–25; TEMP 36.6–36.8; O2SAT 92–100
[2022-04-21] MEDS: ALBUTEROL SULFATE NEB 2.5 MG/3 ML INH INHALATION ×4 (01:12→21:32)
[2022-04-21] MEDS: IPRATROPIUM BR 0.02% INH SOLN 0.5 MG/2.5 ML VIAL INHALATION ×3 (01:12→14:50)
[2022-04-21] MEDS: DORNASE ALFA INH SOLN 1 MG/ML 2.5 ML AMP 2.5 MG INHALATION ×2 (08:40→21:35)
[2022-04-21] MEDS: BUDESONIDE RESPULE NEB 0.5 MG/2 ML AMP INHALATION (08:40)
--- NOTE | 2022-04-21 09:12 | PCPTNOTE ---
Attempted to see patient for PT, however patient was eating breakfast and would like PT to come back later.
[2022-04-21] MEDS: CITALOPRAM HYDROBROMIDE 20 MG TABLET 40 MG PO (10:25)
[2022-04-21] MEDS: guaiFENesin 12 HR 600 MG TABCR PO ×2 (10:25→20:19)
[2022-04-21] MEDS: LORazepam (*CRX) 1 MG TABLET PO ×2 (10:25→20:19)
[2022-04-21] MEDS: HEPARIN SODIUM 5,000 UNITS/ML VIAL 5000 UNITS SUB-Q ×2 (10:25→20:19)
[2022-04-21] MEDS: atenoloL 25 MG TABLET PO ×2 (10:26→20:19)
--- NOTE | 2022-04-21 13:03 | PCPTNOTE ---
Attempted to see patient for PT at this time, however patient declined. Patient reported she feels nauseous and doesn't feel like working with therapy at this time.
[2022-04-21 16:26] LABS: Pneumococcal Antigen Urine Not Detected (Not Detected)
--- NOTE | 2022-04-21 16:41 | PM.IMPN ---
Progress Note: A&P Assessment and Plan (1) Acute respiratory failure with hypoxia and hypercarbia: Code(s): J96.01 - Acute respiratory failure with hypoxia; J96.02 - Acute respiratory failure with hypercapnia Status: Acute (2) Pneumonia: Code(s): J18.9 - Pneumonia, unspecified organism Status: Acute (3) Chronic respiratory failure with hypoxia and hypercapnia: Code(s): J96.11 - Chronic respiratory failure with hypoxia; J96.12 - Chronic respiratory failure with hypercapnia Status: Acute (4) COPD with emphysema: Code(s): J43.9 - Emphysema, unspecified Status: Acute (5) Tobacco abuse: Code(s): Z72.0 - Tobacco use Status: Acute (6) Alcohol dependence, in remission: Code(s): F10.21 - Alcohol dependence, in remission Status: Acute (7) Pulmonary cachexia due to COPD: Code(s): J44.9 - Chronic obstructive pulmonary disease, unspecified; R64 - Cachexia Status: Acute Plan Patient was admitted to IMU on BiPAP. Suspect her acute respiratory failure related to pneumonia made worse by mechanical failure by her not being attached to oxygen at home. She is also not compliant with her BiPAP at home. She was started on Rocephin and azithromycin. Fever has resolved. White count has normalized. Blood cultures are no growth today. Sputum culture with yeast not felt to be clinically significant. Repeat CXR showing RLL airspace disease, severe emphysema and small pleural effusion. No pain to suggest parapneumonic component. She wore the BiPAP for a few hours overnight (notes sats only for 45min) and doing well with current settings. She has been weaned to 4L NC now (wears 3.5L at home). Continue antibiotics. No wheezing so will continue to hold off on steroids. She did complain of dysphagia and MBS was performed and Speech recommended mildly thickened liquids which was started. Given her cachectic state and severe COPD, I did speak with her about hospice but she is not interested. Continue nebulizer treatments. Continue PT/OT. She has been educated about the benefits of smoking cessation. Continue Mucinex and Pulmozyme to try to thin secretions. CPT/flutter valve ordered. Home O2 evaluation in the morning. DVT prophylaxis: heparin Code status: DNR Subjective Date/time seen: 04/21/22 16:41 Interval history: 66yo female with hx of COPD, chronic respiratory failure and ongoing tobacco use here for respiratory failure. She feels anxious off and on when on the BiPAP but was able to wear it about 3 hours last night. Shortness of breath is better overall. Cough is productive of bright green sputum. She denies any chest pain or abdominal pain. No dysuria or hematuria. No hemoptysis. She is able to walk to the bedside commode. Exam Narrative: AF 98.2 142/83 77 18 94% 4L Gen - thin, chronically ill appearing female NARD HEENT - bandaid covering the bridge of the nose Chest - distatn breath sounds diffusely; right base faint inspiratory crackles. nml RR CV - RRR. S1-S2. Tele showing no significant dysrhythmias Abd -soft. Scaphoid. NT. Positive bowel sounds Ext - no pedal edema. Diffuse muscle wasting Psych - normal mood and affect. Speech is clear Skin - warm and dry. Scant adipose tissue Objective Data Vital Signs Vital Signs: Vital Signs - 24 hr 04/20/22 18:00 04/20/22 20:00 04/20/22 19:38 Temperature 97.8 F Pulse Rate 80 81 84 Respiratory Rate 20 20 Blood Pressure 123/71 Pulse Oximetry 97 95 Oxygen Delivery Nasal Cannula Oxygen Flow Rate 4 Fraction of Inspired Oxygen 04/20/22 19:38 04/20/22 19:58 04/20/22 20:50 Temperature Pulse Rate 84 84 87 Respiratory Rate 20 20 Blood Pressure Pulse Oximetry Oxygen Delivery Oxygen Flow Rate Fraction of Inspired Oxygen 04/20/22 20:00 04/20/22 20:00 04/20/22 22:00 Temperature Pulse Rate 82 82 87 Respiratory Rate 20 Blood Pressure Pulse Oximetr
[2022-04-21] MEDS: QUEtiapine FUMARATE 100 MG TABLET PO (20:19)
--- NOTE | 2022-04-21 21:21 | PC.NURSE ---
patient transferred to [address] [place] [address]. rm [id number]. report was called to nurse on floor.
[2022-04-21 23:18] LABS: Legionella pneumophila Ag Ur Not Detected (Not Detected)
[2022-04-22] VITALS (25 sets, daily range): BP systolic 121–148; BP diastolic 56–72; PULSE 72–95; RESP 16–37; TEMP 36.1–37.3; O2SAT 86–98
[2022-04-22] MEDS: ALBUTEROL SULFATE NEB 2.5 MG/3 ML INH INHALATION ×4 (03:03→21:13)
[2022-04-22] MEDS: LORazepam (*CRX) 1 MG TABLET PO ×2 (05:22→20:44)
[2022-04-22 05:55] LABS: Hematocrit 33.5 % (37.0-47.0); Hemoglobin 10.2 g/dL (12.0-15.0); Mean Corpuscular HGB Conc 30.4 g/dl (32-36); Mean Corpuscular Hemoglobin 30.7 pg (26-34); Mean Corpuscular Volume 100.9 fl (80-100); Mean Platelet Volume 9.2 fl (7.4-10.4); Platelet Count Result 171 k/mm3 (150-375); Red Blood Count 3.32 M/mm3 (4.2-5.4); Red Cell Distribution Width 13.3 % (11.5-14.5)
[2022-04-22 06:16] LABS: Albumin Level 2.7 g/dL (3.5-5.1); Blood Urea Nitrogen 19 mg/dL (7-17); Calcium 8.7 mg/dL (8.4-10.2); Carbon Dioxide > 40 mmol/L (22-30); Chloride 97 mmol/L (98-107); Estimated CRCL calculation 66 ml/min; Estimated Glomerular Filt Rate > 60; Glucose 91 mg/dL (65-110); Phosphorus 4.2 mg/dL (2.5-4.5); Potassium 4.3 mmol/L (3.4-5.0); Sodium 141 mmol/L (137-145)
[2022-04-22] MEDS: BUDESONIDE RESPULE NEB 0.5 MG/2 ML AMP INHALATION (09:09)
[2022-04-22] MEDS: DORNASE ALFA INH SOLN 1 MG/ML 2.5 ML AMP 2.5 MG INHALATION ×2 (09:10→21:13)
[2022-04-22] MEDS: UMECLIDINIUM/VILANTEROL 62.5-25 MCG ELLIPTA 1 PUFF INHALATION (09:19)
[2022-04-22] MEDS: PROMETHAZINE HCL 25 MG/ML AMPUL 12.5 MG IV PUSH ×2 (09:35→16:31)
[2022-04-22] MEDS: guaiFENesin 12 HR 600 MG TABCR PO ×2 (09:37→20:44)
[2022-04-22] MEDS: CITALOPRAM HYDROBROMIDE 20 MG TABLET 40 MG PO (09:37)
[2022-04-22] MEDS: HEPARIN SODIUM 5,000 UNITS/ML VIAL 5000 UNITS SUB-Q ×2 (09:37→20:45)
[2022-04-22] MEDS: atenoloL 25 MG TABLET PO ×2 (09:37→20:45)
--- NOTE | 2022-04-22 09:54 | PCPTNOTE ---
Unable to see patient at this time due to working with OT.
--- NOTE | 2022-04-22 13:53 | PM.IMPN ---
Progress Note: A&P Assessment and Plan (1) Acute respiratory failure with hypoxia and hypercarbia: Code(s): J96.01 - Acute respiratory failure with hypoxia; J96.02 - Acute respiratory failure with hypercapnia Status: Acute (2) Pneumonia: Code(s): J18.9 - Pneumonia, unspecified organism Status: Acute (3) Chronic respiratory failure with hypoxia and hypercapnia: Code(s): J96.11 - Chronic respiratory failure with hypoxia; J96.12 - Chronic respiratory failure with hypercapnia Status: Acute (4) COPD with emphysema: Code(s): J43.9 - Emphysema, unspecified Status: Acute (5) Tobacco abuse: Code(s): Z72.0 - Tobacco use Status: Acute (6) Alcohol dependence, in remission: Code(s): F10.21 - Alcohol dependence, in remission Status: Acute (7) Pulmonary cachexia due to COPD: Code(s): J44.9 - Chronic obstructive pulmonary disease, unspecified; R64 - Cachexia Status: Acute Plan Patient was admitted to IMU on BiPAP. Suspect her acute respiratory failure related to pneumonia made worse by mechanical failure by her not being attached to oxygen at home. She is also not compliant with her BiPAP at home. -started on Rocephin and azithromycin and completed 5 days of Azithromycin so will stop today -Fever has resolved. White count has normalized. Blood cultures are no growth today. -Repeat CXR showing RLL airspace disease, severe emphysema and small pleural effusion. No pain to suggest parapneumonic component. -Sputum culture with yeast and now Pseudomnas. Add Levaquin -She wears the BiPAP for a few hours each night -She has been weaned to 4L NC now (wears 3.5L at home). -complains of dysphagia and MBS was performed. Speech recommended mildly thickened liquids which were started. -Given her cachectic state and severe COPD, I did speak with her about hospice but she is not interested. Continue nebulizer treatments. Continue PT/OT. She has been educated about the benefits of smoking cessation. Continue Mucinex and Pulmozyme to try to thin secretions. CPT/flutter valve ordered. Change to Levaquin and monitor for today to see how she toelrates. If she does well, plan discharge in 1-2 days. DVT prophylaxis: heparin Code status: DNR Subjective Date/time seen: 04/22/22 13:53 Interval history: 66yo female with hx of COPD, chronic respiratory failure and ongoing tobacco use here for respiratory failure. Feels better. Minimal SOB. Walking with therapy. No CP. Cough now productive of light yellow sputum. Eating better. she is allergic to moxifloxacin that cause her palms to turn red and itch. she has taken Levaquin multiple times without problems. Exam Narrative: AF 98.4 128/56 75 24 98% 4L Gen - thin, chronically ill appearing female NARD Chest - right base inspiratory crackles o/w very distant breath sounds. CV - RRR. S1-S2 Abd -soft. Scaphoid. NT. Positive bowel sounds Ext - no pedal edema. Diffuse muscle wasting Psych - normal mood and affect. Speech is clear. in good spirits Skin - warm and dry. Scant adipose tissue Objective Data Vital Signs Vital Signs: Vital Signs - 24 hr 04/21/22 14:50 04/21/22 15:00 04/21/22 16:00 Temperature 98.1 F Pulse Rate 74 77 74 Respiratory Rate 18 18 16 Blood Pressure 151/74 H Pulse Oximetry 100 Oxygen Delivery Oxygen Flow Rate Fraction of Inspired Oxygen 04/21/22 14:00 04/21/22 16:00 04/21/22 18:00 Temperature Pulse Rate 85 77 78 Respiratory Rate Blood Pressure Pulse Oximetry Oxygen Delivery Oxygen Flow Rate Fraction of Inspired Oxygen 04/21/22 16:00 04/21/22 20:19 04/21/22 20:00 Temperature Pulse Rate 77 75 Respiratory Rate Blood Pressure Pulse Oximetry 94 Oxygen Delivery Nasal Cannula Oxygen Flow Rate 4 Fraction of Inspired Oxygen 04/21/22 20:00 04/21/22 21:31 04/21/22 21:36 Temperature 98 F Pulse Rate 75 75 78 R
--- NOTE | 2022-04-22 15:56 | PCRCNOTE ---
HOME O2 EVAL DONE, 3-3.5 AT REST AND 3 L WITH ACTIVITY. THIS IS CURRENT SETTINGS. NO CHANGED MADE. RN NOTIFIED
[2022-04-22] MEDS: QUEtiapine FUMARATE 100 MG TABLET PO (20:44)
[2022-04-22] MEDS: ONDANSETRON INJ 4 MG/2 ML VIAL IV PUSH (21:28)
[2022-04-23] VITALS (16 sets, daily range): BP systolic 107–115; BP diastolic 56–73; PULSE 65–79; RESP 16–24; TEMP 36.6–37.2; O2SAT 92–100
[2022-04-23] MEDS: ALBUTEROL SULFATE NEB 2.5 MG/3 ML INH INHALATION ×4 (02:32→20:42)
[2022-04-23] MEDS: DORNASE ALFA INH SOLN 1 MG/ML 2.5 ML AMP 2.5 MG INHALATION ×2 (08:51→20:42)
[2022-04-23] MEDS: BUDESONIDE RESPULE NEB 0.5 MG/2 ML AMP INHALATION (08:51)
[2022-04-23] MEDS: LORazepam (*CRX) 1 MG TABLET PO ×2 (09:37→20:02)
[2022-04-23] MEDS: guaiFENesin 12 HR 600 MG TABCR PO ×2 (09:37→20:02)
[2022-04-23] MEDS: polyethylene glycoL 3350 17 GM POWD.PACK PO (09:37)
[2022-04-23] MEDS: HEPARIN SODIUM 5,000 UNITS/ML VIAL 5000 UNITS SUB-Q ×2 (09:38→20:02)
[2022-04-23] MEDS: CITALOPRAM HYDROBROMIDE 20 MG TABLET 40 MG PO (09:38)
[2022-04-23] MEDS: atenoloL 25 MG TABLET PO ×2 (09:38→20:02)
--- NOTE | 2022-04-23 13:29 | PCOTNOTE ---
Attempted to see patient this pm, however patient reported already completing ADLs this am. Pt getting back to bed from commode at this time. Pt refused exercises due to nausea. Patient reported RN aware. Pt stated, I'm sorry, I'm not trying to be lazy.
--- NOTE | 2022-04-23 13:30 | PM.IMPN ---
Progress Note: A&P Assessment and Plan (1) Acute respiratory failure with hypoxia and hypercarbia: Code(s): J96.01 - Acute respiratory failure with hypoxia; J96.02 - Acute respiratory failure with hypercapnia Status: Acute (2) Pneumonia: Code(s): J18.9 - Pneumonia, unspecified organism Status: Acute (3) Chronic respiratory failure with hypoxia and hypercapnia: Code(s): J96.11 - Chronic respiratory failure with hypoxia; J96.12 - Chronic respiratory failure with hypercapnia Status: Acute (4) COPD with emphysema: Code(s): J43.9 - Emphysema, unspecified Status: Acute (5) Tobacco abuse: Code(s): Z72.0 - Tobacco use Status: Acute (6) Alcohol dependence, in remission: Code(s): F10.21 - Alcohol dependence, in remission Status: Acute (7) Pulmonary cachexia due to COPD: Code(s): J44.9 - Chronic obstructive pulmonary disease, unspecified; R64 - Cachexia Status: Acute Plan # Acute on chronic respiratory failure needing BiPAP Patient was admitted to IMU on BiPAP. Suspect her acute respiratory failure related to pneumonia made worse by mechanical failure by her not being attached to oxygen at home. She is also not compliant with her BiPAP at home. -started on Rocephin and azithromycin and completed 5 days of Azithromycin. -Fever has resolved. White count has normalized. Blood cultures are no growth today. -Repeat CXR showing RLL airspace disease, severe emphysema and small pleural effusion. No pain to suggest parapneumonic component. -Sputum culture with yeast and now Pseudomnas. Added Levaquin which will be continued -She wears the BiPAP for a few hours each night -She has been weaned to 4L NC now (wears 3.5L at home). Back to her baseline level -complains of dysphagia and MBS was performed. Speech recommended mildly thickened liquids which were started. -Given her cachectic state and severe COPD, I did speak with her about hospice but she is not interested. Continue nebulizer treatments. Continue PT/OT. She has been educated about the benefits of smoking cessation. Continue Mucinex and Pulmozyme to try to thin secretions. CPT/flutter valve ordered. # pneumonia Pseudomonas aeruginosa. Susceptibility report pending continue Levaquin # continued nicotine dependence # anxiety depression Mild chronic anemia # DVT prophylaxis: heparin # Code status: DNR Subjective Date/time seen: 04/23/22 13:30 Interval history: 66yo female with hx of COPD, chronic respiratory failure and ongoing tobacco use here for respiratory failure. 04/23/2022 feeling better. Walking with therapy. Shortness of breath on exertion. Cough is still productive. Tolerated Levaquin. Review of Systems Review of Systems: All systems reviewed & are unremarkable except as noted in HPI and below Exam Narrative: Gen - thin, chronically ill appearing female NARD Chest - right base inspiratory rhonchi o/w very distant breath sounds. CV - RRR. S1-S2 Abd -soft. Scaphoid. NT. Positive bowel sounds Ext - no pedal edema. Diffuse muscle wasting Psych - normal mood and affect. Speech is clear. in good spirits Skin - warm and dry. Scant adipose tissue Objective Data Vital Signs Vital Signs: Vital Signs - 24 hr 04/22/22 13:49 04/22/22 13:57 04/22/22 14:58 Temperature 99.2 F Pulse Rate 75 75 77 Respiratory Rate 22 H 24 H 19 Blood Pressure 128/68 Pulse Oximetry 96 Oxygen Delivery Oxygen Flow Rate 04/22/22 15:55 04/22/22 16:06 04/22/22 20:45 Temperature Pulse Rate 95 84 Respiratory Rate Blood Pressure Pulse Oximetry 94 95 Oxygen Delivery Nasal Cannula Nasal Cannula Oxygen Flow Rate 3 3.5 04/22/22 21:03 04/22/22 21:12 04/22/22 21:15 Temperature 97 F L Pulse Rate 73 76 76 Respiratory Rate 18 20 Blood Pressure 148/72 H Pulse Oximetry 98 92 Oxygen Delivery Nasal Cannula Oxygen Flow Rate 3 04/22/22 21:16 06
--- NOTE | 2022-04-23 13:38 | PCNFU ---
Nutrition Follow-Up Complete: Severe malnutrition R/T decreased PO intake AEB pt report of poor appetite, severe subcutaneous fat loss (orbital fat pads, buccal fat pads, triceps) and severe muscle wasting (temporalis, pectoralis major, deltoid, trapezius, supraspinatus, infraspinatus, latissimus dorsi, rhomboid, interosseous) Goal: Pt to meet >50% of estimated nutritional needs Pt has met goal, new goal of maintaining 75% of estimated nutritional needs. Pt current nutrition is Regular, mildthick level 2. Last recorded weight is 50.5 kg, up .2kg from 04/18/2022. Bowel Motility: +BM (04/22) Labs Reviewed:Hgb 10.2, Hct 33.5, BUN 19, Cr .60 Meds Noted: Heparin Sodium Skin: Dry, loose Additional Notes: Pt is eating around 90% of her meals and finishing Ensure Compact drinks TID (220 kcal, 8gm protein each) supplements. Pt reports she likes the food she is given. Pt has had recent diet change following MBS test, resulting in a Regular, level 2 thickened liquid diet. Will monitor labs, medication, wt, and reported intake every 5 days
--- NOTE | 2022-04-23 13:53 | PCNSR ---
On 04/23/22, the student, Escobar Boggs, provided care and completed [facility] documentation on this patient. I have reviewed the student's documentation and agree with the findings.
[2022-04-23] MEDS: PROMETHAZINE HCL 25 MG/ML AMPUL 12.5 MG IV PUSH ×2 (14:19→21:34)
[2022-04-23] MEDS: QUEtiapine FUMARATE 100 MG TABLET PO (20:02)
[2022-04-23] MEDS: HYDROcodone/acetaminophen (*CRX) 5-325 MG TABLET 1 TAB PO (20:37)
--- NOTE | 2022-04-23 20:47 | PCRCNOTE ---
Pt refusing BIPAP on 04/23. Pt states she is too anxious at this time to wear, has a belly ache and does not feel well. RT will round at a later time to see if pt has changed her mind.
[2022-04-24] VITALS (7 sets, daily range): BP systolic 121; BP diastolic 91; PULSE 64–71; RESP 20–22; TEMP 36.4; O2SAT 92–98
[2022-04-24] MEDS: ALBUTEROL SULFATE NEB 2.5 MG/3 ML INH INHALATION ×2 (02:45→09:24)
[2022-04-24 05:28] LABS: Basophils Percent Auto 0.4 % (0.2-1.2); Eosinophils Absolute Auto 0.1 K/mm3 (0-0.3); Eosinophils Percent Auto 1.8 % (0-4.4); Hematocrit 31.5 % (37.0-47.0); Hemoglobin 9.7 g/dL (12.0-15.0); Immature Granulocyte Absolute 0.08 K/mm3 (0.00-0.031); Immature Granulocyte Percent A 1.2 % (0-0.5); Lymphocytes Absolute Auto 0.84 K/mm3 (0.9-3.2); Lymphocytes Percent Auto 12.3 % (18.3-44.2); Mean Corpuscular HGB Conc 30.8 g/dl (32-36); Mean Corpuscular Hemoglobin 31.2 pg (26-34); Mean Corpuscular Volume 101.3 fl (80-100); Mean Platelet Volume 9.3 fl (7.4-10.4); Monocytes Absolute Auto 0.8 K/mm3 (0.1-0.6); Monocytes Percent Auto 10.9 % (2.6-8.5); Neutrophils Percent Auto 73.4 % (45.5-73.1); Platelet Count Result 184 k/mm3 (150-375); Red Blood Count 3.11 M/mm3 (4.2-5.4); Red Cell Distribution Width 13.3 % (11.5-14.5); White Blood Count 6.9 K/mm3 (4.5-10.0)
[2022-04-24 05:44] LABS: Alanine Aminotransferase 25 U/L (6-35); Albumin Level 2.9 g/dL (3.5-5.1); Alkaline Phosphatase 78 U/L (38-126); Aspartate Amino Transferase 35 U/L (14-36); Bilirubin,Total 0.2 mg/dL (0.2-1.3); Blood Urea Nitrogen 27 mg/dL (7-17); Calcium 8.5 mg/dL (8.4-10.2); Carbon Dioxide > 40 mmol/L (22-30); Chloride 101 mmol/L (98-107); Estimated CRCL calculation 56 ml/min; Estimated Glomerular Filt Rate > 60; Glucose 90 mg/dL (65-110); Magnesium 2.1 mg/dL (1.6-2.3); Potassium 4.3 mmol/L (3.4-5.0); Sodium 141 mmol/L (137-145)
[2022-04-24] MEDS: HYDROcodone/acetaminophen (*CRX) 5-325 MG TABLET 1 TAB PO (06:22)
[2022-04-24] MEDS: LORazepam (*CRX) 1 MG TABLET PO (06:22)
[2022-04-24] MEDS: atenoloL 25 MG TABLET PO (09:18)
[2022-04-24] MEDS: HEPARIN SODIUM 5,000 UNITS/ML VIAL 5000 UNITS SUB-Q (09:18)
[2022-04-24] MEDS: guaiFENesin 12 HR 600 MG TABCR PO (09:18)
[2022-04-24] MEDS: CITALOPRAM HYDROBROMIDE 20 MG TABLET 40 MG PO (09:19)
[2022-04-24] MEDS: polyethylene glycoL 3350 17 GM POWD.PACK PO (09:19)
[2022-04-24] MEDS: DORNASE ALFA INH SOLN 1 MG/ML 2.5 ML AMP 2.5 MG INHALATION (09:25)
[2022-04-24] MEDS: BUDESONIDE RESPULE NEB 0.5 MG/2 ML AMP INHALATION (09:25)
--- NOTE | 2022-04-24 09:46 | PM.DS ---
DS: Admitting Diagnosis Discharge Date 04/24/2022 Admitting Diagnosis Shortness of breath DS: Discharge Diagnosis Discharge Diagnosis (1) Acute respiratory failure with hypoxia and hypercarbia: Code(s): J96.01 - Acute respiratory failure with hypoxia; J96.02 - Acute respiratory failure with hypercapnia Status: Acute (2) Pneumonia: Code(s): J18.9 - Pneumonia, unspecified organism Status: Acute (3) Chronic respiratory failure with hypoxia and hypercapnia: Code(s): J96.11 - Chronic respiratory failure with hypoxia; J96.12 - Chronic respiratory failure with hypercapnia Status: Acute (4) COPD with emphysema: Code(s): J43.9 - Emphysema, unspecified Status: Acute (5) Tobacco abuse: Code(s): Z72.0 - Tobacco use Status: Acute (6) Alcohol dependence, in remission: Code(s): F10.21 - Alcohol dependence, in remission Status: Acute (7) Pulmonary cachexia due to COPD: Code(s): J44.9 - Chronic obstructive pulmonary disease, unspecified; R64 - Cachexia Status: Acute Plan # Acute on chronic respiratory failure needing BiPAP Patient was admitted to IMU on BiPAP. Suspect her acute respiratory failure related to pneumonia made worse by mechanical failure by her not being attached to oxygen at home. She is also not compliant with her BiPAP at home. -she was started on Rocephin and azithromycin and she completed 5 days of Azithromycin. -Fever has resolved. White count has normalized. Blood cultures are no growth to date -Repeat CXR showing RLL airspace disease, severe emphysema and small pleural effusion. No pain to suggest parapneumonic component. -Sputum culture with yeast and now Pseudomnas. Added Levaquin which will be continued. She tolerated Levaquin well. This will be continued for 7 more days at discharge. -She wears the BiPAP for a few hours each night -She has been weaned to 4L NC now (wears 3.5L at home). Back to her baseline level -complains of dysphagia and MBS was performed. Speech recommended mildly thickened liquids which were started. -Given her cachectic state and severe COPD, I did speak with her about hospice but she is not interested. Continue nebulizer treatments. Continue PT/OT. She has been educated about the benefits of smoking cessation. Continue Mucinex and Pulmozyme to try to thin secretions. CPT/flutter valve ordered. # pneumonia Pseudomonas aeruginosa. Susceptibility report will sensitive to Levaquin. Will continue Levaquin at discharge # continued nicotine dependence # anxiety depression # Mild chronic anemia # DVT prophylaxis: heparin # Code status: DNR DS: Summary Hospital Course Hospital Course: See above Time Spent with Patient Time attestation: Total time spent providing and/or coordinating discharge services: 45 minutes Exam Narrative: Gen - thin, chronically ill appearing female NARD Chest - right base inspiratory rhonchi o/w very distant breath sounds. CV - RRR. S1-S2 Abd -soft. Scaphoid. NT. Positive bowel sounds Ext - no pedal edema. Diffuse muscle wasting Psych - normal mood and affect. Speech is clear. in good spirits Skin - warm and dry. Scant adipose tissue DS: Data Data Completed and Pending Labs on day of discharge: Labs from last 24 hours 04/24/22 04/24/22 05:15 05:15 WBC 6.9 RBC 3.11 L Hgb 9.7 L Hct 31.5 L MCV 101.3 H MCH 31.2 MCHC 30.8 L RDW 13.3 Plt Count 184 MPV 9.3 Immature Gran % (Auto) 1.2 H Neut % (Auto) 73.4 H Lymph % (Auto) 12.3 L [place] % (Auto) 10.9 H Eos % (Auto) 1.8 Baso % (Auto) 0.4 Lymph # (Auto) 0.84 L [place] # (Auto) 0.8 H Eos # (Auto) 0.1 Baso # (Auto) 0.0 Abs Immat Gran (auto) 0.08 H Absolute Neuts (auto) 5.0 Absolute Nucleated RBC 0.0 Nucleated RBC % 0.0 Sodium 141 Potassium 4.3 Chloride 101 Carbon Dioxide > 40 H Anion Gap BUN 27 H Creatinine 0.70 Estim Creat Clear Calc 56
== END 2022-04-24 10:55 | disposition home or self-care (01) | DRG 177 ==
LOC: ANHED 16:38 → ANHIMU 16:48 → ANH3MED 04-21 21:20
PROVIDERS: Emergency Medicine; Admitting Provider Internal Medicine; Emergency Provider Emergency Medicine; PCP Family Medicine Adolescent Medicine; Visit Provider Internal Medicine
DX: J15.1 Pneumonia due to Pseudomonas (principal); J96.22 Acute and chronic respiratory failure with hypercapnia; J96.21 Acute and chronic respiratory failure with hypoxia; Z68.1 Body mass index [BMI] 19.9 or less, adult; R64 Cachexia; Z20.822 Contact with and (suspected) exposure to COVID-19; Z66 Do not resuscitate; D64.9 Anemia, unspecified; F41.8 Other specified anxiety disorders; F17.210 Nicotine dependence, cigarettes, uncomplicated; F10.21 Alcohol dependence, in remission; J43.9 Emphysema, unspecified; R63.6 Underweight; R13.10 Dysphagia, unspecified; R41.0 Disorientation, unspecified; Z88.0 Allergy status to penicillin; Z91.19 Patient's noncompliance with other medical treatment and regimen; Z99.81 Dependence on supplemental oxygen
CPT/HCPCS: 36415; 36600; 71046; 80048; 80053; 80069; 82375; 82607; 82746; 82805; 83050; 83735; 83880; 84100; 85025; 85027; 87040; 87070; 87077; 87106; 87186; 87205; 87449; 87899; 92526; 92610; 92611; 93005; 94002; 94003; 94618; 94640; 94667; 94668; 96365; 96368; 97110; 97116; 97161; 97165; 97530; 97535; 99285; A9270; C9803; G0378; J0456; J0696; J1644; J1956; J2405; J2550; U0003; U0005

== ENCOUNTER → 2022-07-30 09:51 | Outpatient (CLI) | payer OTHER, MEDICARE, SELFPAY ==
--- NOTE | ~2022-07-30 | CT_ITS ---
EXAMINATION:CT lung screening DATE: 07/30/2022 10:17 INDICATION: Personal history of tobacco dependence. Current smoker with 78 pack year history. TECHNIQUE: Computed tomography (CT) of the chest was performed without intravenous contrast. Automate d exposure control and iterative reconstruction technique were employed. The dose-length product (DLP ) was 39.01 mGy-cm. COMPARISON: Chest CT 07/26/2021 FINDINGS: There is severe emphysema. There are airspace opacities and small nodules in dependent righ t lower lobe, consistent with pneumonia. A calcified right lung nodule and calcified right hilar lymp h nodes are consistent with old granulomatous disease. There is mild atelectasis and scarring bilater ally. There is a new 8 mm nodule in right upper lobe. There is prominent mucus in the trachea and bud nstem bronchi. No pleural effusion. The heart size is normal. There are coronary artery calcification s. No pericardial effusion. There is mild thoracic spondylosis. IMPRESSION: 1. Lung-RADS category 4B: Very suspicious. Pneumonia is favored over malignancy for the lung findings . Given that the patient would not be a candidate for percutaneous biopsy given her home oxygen use, I am not giving a specific time for follow-up CT. Reviewed, dictated and finalized at location A. IMPRESSION: 1. Lung-RADS category 4B: Very suspicious. Pneumonia is favored over malignancy for the lung findings. Given that the patient would not be a candidate for per cutaneous biopsy given her home oxygen use, I am not giving a specific time for follow-up CT.
== END ==
PROVIDERS: PCP Family Medicine Adolescent Medicine; Visit Provider Internal Medicine Pulmonary Disease
DX: Z12.2 Encounter for screening for malignant neoplasm of respiratory organs (principal); Z87.891 Personal history of nicotine dependence; R91.8 Other nonspecific abnormal finding of lung field
CPT/HCPCS: 71271

== ENCOUNTER 2022-07-30 10:35 | Outpatient (CLI) | payer OTHER, MEDICARE, SELFPAY ==
--- NOTE | 2022-07-30 12:12 | WPDSIXMINUTE ---
Six Minute Walk Procedure Procedure Performed Pulmonary Stress Test (6 min walk) Six Minute Walk Six Minute Walk: This is a 6 minute walk test. The test was performed and interpreted in accordance with the 2014 ERS/ATS task force guidelines. This was a Pre pulmonary rehabilitation test and the patient walked with a wheeled walker and wore prescribed 3 L nasal cannula. Findings: The patient's resting oxygen saturation on 3 L NC measured by pulse oximetry was 98% and heart rate was 94 bpm. Patient ambulated for 244 meters and oxygen saturation remained 85 to 98%. Heart rate at the end of the study was 112 bpm. At 5:48 the patient's saturations were 90% and then dropped to a low of 81% at 6:48 seconds and at 7:36 seconds her saturations were increased to 93%. There are no prior studies for comparison.
== END 2022-07-30 10:36 | disposition home or self-care (01) ==
LOC: ANHPFT 10:38
PROVIDERS: PCP Family Medicine Adolescent Medicine; Visit Provider Internal Medicine Pulmonary Disease
DX: J44.9 Chronic obstructive pulmonary disease, unspecified (principal)
CPT/HCPCS: 94618

== ENCOUNTER 2022-09-12 13:30 | Outpatient (RCR) | payer OTHER, MEDICARE, SELFPAY | END 2022-10-10 16:03 | disposition home or self-care (01) | LOC: ANHCPREHAB 13:30 | PROVIDERS: PCP Family Medicine Adolescent Medicine; Visit Provider Internal Medicine Pulmonary Disease | DX: J44.9 Chronic obstructive pulmonary disease, unspecified (principal) | CPT/HCPCS: 94625 ==